=== PATIENT | male | born 1955 | race African-American/Black ===

== ENCOUNTER → 2018-06-21 | Outpatient (CLI) | payer MEDICARE ==
[2018-06-21 12:27] LABS: ALANINE AMINOTRANSFERASE 21 U/L (21-72); ALBUMIN 4.4 g/dL (3.5-5.0); ALKALINE PHOSPHATASE 84 U/L (38-126); ANION GAP 7 (5-19); ASPARTATE AMINO TRANSFERASE 24 U/L (17-59); BILIRUBIN,DIRECT 0.4 mg/dL (0.0-0.4); BILIRUBIN,TOTAL 0.5 mg/dL (0.2-1.3); BLOOD UREA NITROGEN 10 mg/dL (7-20); CALCIUM 8.8 mg/dL (8.4-10.2); CARBON DIOXIDE 32 mmol/L (22-30); CHLORIDE 102 mmol/L (98-107); CHOLESTEROL 220.71 mg/dL (0-200); GLUCOSE 101 mg/dL (75-110); POTASSIUM 4.9 mmol/L (3.6-5.0); TOTAL PROTEIN 7.5 g/dL (6.3-8.2); TRIGLYCERIDES 258 mg/dL (<150)
[2018-06-21 12:38] LABS: DIRECT LDL 100 mg/dL (<100)
[2018-06-21 12:46] LABS: VLDL CHOLESTEROL 51.6 mg/dL (10-31)
== END ==
LOC: OD 10:59
PROVIDERS: ATTEND Family Medicine
DX: E78.5 Hyperlipidemia, unspecified (principal)
CPT/HCPCS: 36415; 80053; 80061

== ENCOUNTER 2018-07-18 14:56 | Emergency (ER) | payer MEDICARE ==
--- NOTE | 2018-07-18 15:17 | ER Document Report ---
ED Medical Screen (RME) - General Chief Complaint: Altered Mental Status Stated Complaint: ALTERED MENTAL STATUS Time Seen by Provider: 07/18/18 15:09 Notes: 62-year-old male patient reports onset about 5 PM yesterday of left-sided weakness with some confusion and difficulty saying what he is thinking. He had his daughter who is a nurse at [employer] check his blood pressure about 7:30 PM and noted that it was a little high. According to the patient and his spouse , the daughter told her mother that she should take him to see a doctor in the morning. He did go to his primary care provider and was sent to the emergency room for further evaluation. I have greeted and performed a rapid initial assessment of this patient. A comprehensive ED assessment and evaluation of the patient, analysis of test results and completion of the medical decision making process will be conducted by additional ED providers. TRAVEL OUTSIDE OF THE [place] IN LAST 30 DAYS: No - Related Data Allergies/Adverse Reactions: aspirin Allergy (Verified 07/18/18 15:00) Past Medical History - Social History Chew tobacco use (# tins/day): No Frequency of alcohol use: None Drug Abuse: None Renal/ Medical History: Denies: Hx Peritoneal Dialysis Past Surgical History: Reports: Hx Abdominal Surgery - hernia Physical Exam - Vital signs Vitals: Temp Pulse Resp BP Pulse Ox 97.4 F 62 16 162/81 H 96 07/18/18 15:05 07/18/18 15:05 07/18/18 15:05 07/18/18 15:05 07/18/18 15:05 Course - Vital Signs Vital signs: Temp Pulse Resp BP Pulse Ox 97.4 F 62 16 162/81 H 96 07/18/18 15:05 07/18/18 15:05 07/18/18 15:05 07/18/18 15:05 07/18/18 15:05 Doctor's Discharge - Discharge Referrals: KAYLA KIRK MD [Primary Care Provider] - Follow up as needed
--- NOTE | 2018-07-18 15:51 | RADIOLOGY REPORT (SQ) ---
EXAM DESCRIPTION: CT HEAD WITHOUT COMPLETED DATE/TIME: 07/18/2018 3:31 pm REASON FOR STUDY: Left-sided weakness with confusion X 22 hours COMPARISON: None. TECHNIQUE: Axial images acquired through the brain without intravenous contrast. Images reviewed wi th bone, brain and subdural windows. Images stored on PACS. All CT scanners at this facility use dose modulation, iterative reconstruction, and/or weight based d osing when appropriate to reduce radiation dose to as low as reasonably achievable (ALARA). [facility]: Dose Right [facility]: CareDose [facility]: Dose Right [facility]: Teradose 4D [facility]: [employer] RADIATION DOSE: CT Rad equipment meets quality standard of care and radiation dose reduction techniq ues were employed. CTDIvol: 53.2 mGy. DLP: 1097 mGy-cm. mGy. LIMITATIONS: None. FINDINGS: VENTRICLES: Normal size and contour. CEREBRUM: No masses. No hemorrhage. No midline shift. No evidence for acute infarction. Normal gra y/white matter differentiation. No areas of low density in the white matter. CEREBELLUM: No masses. No hemorrhage. No alteration of density. No evidence for acute infarction. EXTRAAXIAL SPACES: No fluid collections. No masses. ORBITS AND GLOBE: No intra- or extraconal masses. Normal contour of globe without masses. CALVARIUM: No fracture. PARANASAL SINUSES: No fluid or mucosal thickening. SOFT TISSUES: No mass or hematoma. OTHER: No other significant finding. IMPRESSION: NORMAL BRAIN CT WITHOUT CONTRAST. EVIDENCE OF ACUTE STROKE: NO. COMMENT: Quality ID # [id number]: Final reports with documentation of one or more dose reduction techniques (e.g., Automated exposure control, adjustment of the mA and/or kV according to patient size, use of iterative reconstruction technique) TECHNICAL DOCUMENTATION: JOB ID: [id number] [employer]- All Rights Reserved Reading location - IP/workstation name: [email or web address]
[2018-07-18 16:00] LABS: ABSOLUTE EOSINOPHILS # (AUTO) 0.1 10^3/uL (0.0-0.6); ABSOLUTE LYMPHOCYTES (AUTO) 2.5 10^3/uL (0.5-4.7); ABSOLUTE MONOCYTES (AUTO) 0.5 10^3/uL (0.1-1.4); ABSOLUTE NEUT (AUTO) 1.7 10^3/uL (1.7-8.2); BASOPHILS % (AUTO) 0.6 % (0-2); EOSINOPHILS % (AUTO) 1.3 % (0-6); HEMATOCRIT 41.7 % (37.9-51.0); HEMOGLOBIN 14.2 g/dL (13.5-17.0); LYMPHOCYTES % (AUTO) 52.5 % (13-45); MEAN CORPUSCULAR HEMOGLOBIN 29.9 pg (27.0-33.4); MEAN CORPUSCULAR HGB CONC 34.1 g/dL (32.0-36.0); MEAN CORPUSCULAR VOLUME 88 fl (80-97); MONOCYTES % (AUTO) 9.6 % (3-13); PLATELET COUNT 167 10^3/uL (150-450); RED BLOOD COUNT 4.75 10^6/uL (4.35-5.55); RED CELL DISTRIBUTION WIDTH 13.7 % (11.5-14.0); TOTAL CELLS COUNTED % (AUTO) 100 %; WHITE BLOOD COUNT 4.7 10^3/uL (4.0-10.5)
[2018-07-18 16:12] LABS: INTERNATIONAL RATION (INR) 0.99; PARTIAL THROMBOPLASTIN TIME 25.1 SEC (23.5-35.8); PROTHROMBIN TIME 13.6 SEC (11.4-15.4)
[2018-07-18 16:19] LABS: APPEARANCE,URINE CLEAR; BILIRUBIN,URINE NEGATIVE (NEGATIVE); COLOR,URINE YELLOW; GLUCOSE, URINE NEGATIVE (NEGATIVE); KETONES,URINE NEGATIVE (NEGATIVE); LEUKOCYTE ESTERASE,URINE NEGATIVE (NEGATIVE); NITRITE,URINE NEGATIVE (NEGATIVE); PROTEIN,URINE NEGATIVE (NEGATIVE); URINE SPECIFIC GRAVITY 1.026
[2018-07-18] MEDS ORDERED: ASPIRIN 81 MG TABLET, CHEWABLE PO ONE (16:46)
--- NOTE | 2018-07-18 16:46 | ER Document Report ---
ED General - General Chief Complaint: Altered Mental Status Stated Complaint: ALTERED MENTAL STATUS Time Seen by Provider: 07/18/18 15:09 Notes: Patient was referred here from the [facility] for possible stroke. Patient says that last evening, he began noticing some problems with his speech and feeling weak in his left arm. Patient says he has had similar symptoms of this once back in the 1970s when he was diagnosed as having a light stroke. Patient's daughter, who is a nurse, took his blood pressure and it was between 175 and 180/80. Patient is not on any blood pressure medication and has not been on any blood pressure medicines. He had some headache this morning , but that has now completely gone. Patient says that he has been having concerns about his balance and feeling like he is going to fall, feeling like he is drunk, but this is been going on for a couple of months. Patient has no chest pains. No shortness of breath. No vomiting or diarrhea. Patient is currently on no medications. TRAVEL OUTSIDE OF THE [place] IN LAST 30 DAYS: No - Related Data Allergies/Adverse Reactions: aspirin Allergy (Verified 07/18/18 15:00) Past Medical History - Social History Smoking Status: Never Smoker Chew tobacco use (# tins/day): No Frequency of alcohol use: None Drug Abuse: None Family History: Reviewed & Not Pertinent Patient has suicidal ideation: No Patient has homicidal ideation: No - Past Medical History Cardiac Medical History: Reports: Other - Patient can take a baby aspirin a day , but more than that upset his stomach Endocrine Medical History: Denies: Hx Diabetes Mellitus Type 1, Hx Diabetes Mellitus Type 2 Past Surgical History: Reports: Hx Abdominal Surgery - hernia Review of Systems - Review of Systems Notes: REVIEW OF SYSTEMS: CONSTITUTIONAL : Denies fever. EENT: Denies eye, ear, nose or mouth or throat pain or other symptoms. CARDIOVASCULAR: Denies chest pain. RESPIRATORY: Denies cough, chest congestion, or shortness of breath. GASTROINTESTINAL: Denies abdominal pain or nausea, vomiting, or diarrhea. GENITOURINARY: Denies difficulty or painful urinating, urinary frequency, blood in urine. MUSCULOSKELETAL: Denies back or neck pain. Denies joint pain or swelling. SKIN: Denies rash or skin lesions. NEUROLOGICAL: Denies LOC or altered mental status. Can ambulate without assistance. Had a headache earlier today, but now no headache. Denies sensory loss or motor deficits. ALL OTHER SYSTEMS REVIEWED AND NEGATIVE. Physical Exam - Vital signs Vitals: Temp Pulse Resp BP Pulse Ox 97.4 F 62 16 162/81 H 96 07/18/18 15:05 07/18/18 15:05 07/18/18 15:05 07/18/18 15:05 07/18/18 15:05 Interpretation: Normal, Hypertensive - Mild Notes: PHYSICAL EXAMINATION: GENERAL: Well-appearing, in no acute distress. Ambulatory without assistance. No problems with his balance observed. HEAD: Atraumatic, normocephalic. EYES: Pupils equal round and reactive to light, extraocular movements intact. ENT: oropharynx clear without exudates. Moist mucous membranes. NECK: Normal range of motion, supple. No carotid bruits heard. LUNGS: Breath sounds clear and equal bilaterally. HEART: Regular rate and rhythm without murmurs. ABDOMEN: Soft, nontender. No guarding or rebound. No masses. BACK: No tenderness throughout entire back. EXTREMITIES: Normal range of motion without pain. NEUROLOGICAL: Both the patient's and his daughter and he agree that at this time, his symptoms have all essentially subsided and he is asymptomatic. Normal speech, normal gait. Normal sensory, motor, and reflex exams. Awake, alert, and oriented x3. Cranial nerves normal. PSYCH: Normal mood, normal affect. SKIN: Warm, dry, no rashes. Course - Re-evaluation Re-evalutation: 07/18/18 17:05 Patient remained stable throughout his stay in the department. His blood pressure was moderately elevated, 162/81 in triage. 07/18/18 17:10 Patient and family agree that his symptoms have essentially completely resolved. He does not have any current headache. No problems with his balance currently. No weakness of either side. No problems with his speech. I think treating this patient with aspirin and get his blood pressure under control will be appropriate treatment in his case. - Vital Signs Vital signs: Temp Pulse Resp BP Pulse Ox 97.4 F 62 16 162/81 H 96 07/18/18 15:05 07/18/18 15:05 07/18/18 15:05 07/18/18 15:05 07/18/18 15:05 - Laboratory Result Diagrams: 07/18/18 15:33 07/18/18 16:20 Laboratory results interpreted by me: 07/18/18 07/18/18 07/18/18 15:33 15:55 16:20 Seg Neutrophils % 36.0 L Lymphocytes % 52.5 H Direct Bilirubin 0.6 H ALT 19 L Creatine Kinase 237 H Urine Urobilinogen 4.0 H - Diagnostic Test Radiology reviewed: Image reviewed, Reports reviewed - CT scan is normal. - EKG Interpretation by Me EKG shows normal: Sinus rhythm Rate: Normal Rhythm: NSR Voltage: Increased voltage, Consistant with LVH Discharge - Discharge Clinical Impression: TIA (transient ischemic attack), Hypertension Condition: Stable Disposition: HOME, SELF-CARE Additional Instructions: Transient Ischemic Attack You have been diagnosed as having a transient ischemic attack (TIA). This is caused when an artery to the brain has been temporarily blocked. It can result in visual changes, difficulty with speech, and weakness or numbness -- usually limited to one side of the body. TIA symptoms usually resolve within an hour, but a TIA is serious, as it may be a warning sign of an impending stroke. To prevent further episodes, you may be placed on medication to reduce the possibility that your platelets will aggregate and form blood clots in the arteries that supply the brain. Usually, this includes aspirin and sometimes other platelet inhibitors. Further evaluation is often necessary to make an exact diagnosis as to where these blood clots are originating, and if anything else needs to be done to correct the problem. Call the physician or go to the emergency room if episodes occur with increasing frequency. If symptoms occur that don't go away within a few minutes , call 911. Take a single baby aspirin every day. Aspirin Aspirin has been shown to have a beneficial effect on blood circulation by reducing the clotting effect of platelets in the blood. These beneficial effects can be achieved by taking just a single baby (62.5 mg) aspirin a day. It is recommended that any person over the age of forty take a single baby aspirin every day for heart and brain circulation, unless you are allergic to aspirin or have some significant bleeding disorder. It is strongly recommended that people who have proven cardiac or blood circulation disturbances should take a baby aspirin every day. HIGH BLOOD PRESSURE REQUIRING TREATMENT: Your blood pressure is high. This is called "hypertension." Today's reading was ___162/81_ (normal is less than 140/90). Your history and exam suggest that this is not a temporary problem. You need treatment of your blood pressure. If left untreated, high blood pressure greatly increases your risk of heart attack and stroke. Please don't ignore this problem. If you have blood pressure medicine but aren't using it regularly, start taking it again. Some simple things you can do to help are: Get some aerobic exercise for at least 20 minutes on a daily basis. (See your doctor before beginning any new exercise program.) Eat a low-fat diet. Lose excess weight. Avoid salty foods and avoid adding salt to any of the foods you eat. Avoid diet pills, decongestants, "energizing" herbs, and other medicines that elevate blood pressure. There are many different medicines that treat blood pressure. If your medication causes unpleasant side effects, call your doctor. There are others you can try. Treating hypertension is a life-long investment in your health. ANGIOTENSIN CONVERTING ENZYME INHIBITOR MEDICATION: "ODETTE inhibitor" drugs are used to lower high blood pressure (or to reduce the "work" of the heart in patients with heart failure). These drugs block an enzyme that makes your blood vessels constrict and makes you retain salt. The result is lower blood pressure. ODETTE inhibitors cause few side effects. The most common side effect is a dry nagging cough. Occasionally, lightheadedness may occur while you get used to the medicine. Some patients may retain extra potassium (this is a problem if you are taking potassium supplements, potassium-containing salt substitutes, or a potassium-retaining drug such as triamterene, spironolactone, or amiloride) . If you are taking lithium, the lithium level must be rechecked after starting an ODETTE inhibitor. ODETTE inhibitors should NOT be used during . Contact the doctor or return if you develop severe lightheadedness, wheeze , weakness, palpitations or other new symptoms. Take the blood pressure medicine prescribed once a day. Follow-up at the [facility] in 7-10 days for a blood pressure recheck and medication adjustment. FOLLOW-UP CARE: If you have been referred to a physician for follow-up care, call the physician s office for an appointment as you were instructed or within the next two days. If you experience worsening or a significant change in your symptoms, notify the physician immediately or return to the Emergency Department at any time for re-evaluation. Return for us to reevaluate your condition if you develop new or worsening symptoms. Prescriptions: Lisinopril [Prinivil] 20 mg PO DAILY #30 tablet Referrals: KAYLA KIRK MD [Primary Care Provider] - Follow up as needed
[2018-07-18] MEDS ORDERED: LISINOPRIL 10 MG TABLET PO ONE (16:51)
[2018-07-18 17:02] LABS: ALANINE AMINOTRANSFERASE 19 U/L (21-72); ALBUMIN 4.2 g/dL (3.5-5.0); ALKALINE PHOSPHATASE 83 U/L (38-126); ANION GAP 10 (5-19); ASPARTATE AMINO TRANSFERASE 28 U/L (17-59); BILIRUBIN,DIRECT 0.6 mg/dL (0.0-0.4); BILIRUBIN,TOTAL 0.9 mg/dL (0.2-1.3); BLOOD UREA NITROGEN 8 mg/dL (7-20); CALCIUM 8.9 mg/dL (8.4-10.2); CARBON DIOXIDE 30 mmol/L (22-30); CHLORIDE 99 mmol/L (98-107); CREATINE KINASE 237 U/L (55-170); GLUCOSE 108 mg/dL (75-110); POTASSIUM 4.4 mmol/L (3.6-5.0); SODIUM 138.9 mmol/L (137-145); TOTAL PROTEIN 7.3 g/dL (6.3-8.2)
[2018-07-18 17:14] LABS: CREATINE KINASE MB 0.27 ng/mL (<4.55)
[2018-07-18 17:15] LABS: TROPONIN I < 0.012 ng/mL
[2018-07-18 17:49] VITALS: BP 161/77
--- NOTE | 2018-07-18 20:24 | EKG REPORT ---
SEVERITY:- ABNORMAL ECG - SINUS RHYTHM LEFT VENTRICULAR HYPERTROPHY : Confirmed by: Lam Eaton 18-Jul-2018 20:23:53
== END 2018-07-18 17:48 | disposition home or self-care (01) ==
LOC: ER 14:56
DX: G45.9 Transient cerebral ischemic attack, unspecified (principal); I10 Essential (primary) hypertension; R41.82 Altered mental status, unspecified; Z88.6 Allergy status to analgesic agent
CPT/HCPCS: 93005; 99285; 36415; 82553; 82550; 85025; 85610; 85730; 80053; 81001; 84484; 70450; 93010; A9270 ×2

== ENCOUNTER → 2018-08-07 | Outpatient (CLI) | payer MEDICARE | LOC: LAB 10:10 | PROVIDERS: ATTEND Family Medicine | DX: R39.12 Poor urinary stream (principal) | CPT/HCPCS: 36415; 84153 ==

== ENCOUNTER 2018-11-24 06:50 | Inpatient (IN) | payer MEDICARE ==
[2018-11-24] MEDS ORDERED: NORMAL SALINE 1000 ML 1,000 ML IV ONE ×2 (07:56→08:36)
[2018-11-24 08:12] LABS: ABSOLUTE LYMPHOCYTES (AUTO) 2.6 10^3/uL (0.5-4.7); ABSOLUTE MONOCYTES (AUTO) 0.9 10^3/uL (0.1-1.4); ABSOLUTE NEUT (AUTO) 4.1 10^3/uL (1.7-8.2); BASOPHILS % (AUTO) 0.1 % (0-2); EOSINOPHILS % (AUTO) 0.5 % (0-6); HEMATOCRIT 31.9 % (37.9-51.0); HEMOGLOBIN 10.7 g/dL (13.5-17.0); LYMPHOCYTES % (AUTO) 34.1 % (13-45); MEAN CORPUSCULAR HEMOGLOBIN 30.5 pg (27.0-33.4); MEAN CORPUSCULAR HGB CONC 33.6 g/dL (32.0-36.0); MEAN CORPUSCULAR VOLUME 91 fl (80-97); MONOCYTES % (AUTO) 11.2 % (3-13); PLATELET COUNT 175 10^3/uL (150-450); RED BLOOD COUNT 3.52 10^6/uL (4.35-5.55); RED CELL DISTRIBUTION WIDTH 13.7 % (11.5-14.0); SEGMENTED NEUTROPHILS % (AUTO) 54.1 % (42-78); TOTAL CELLS COUNTED % (AUTO) 100 %; WHITE BLOOD COUNT 7.6 10^3/uL (4.0-10.5)
[2018-11-24 08:19] LABS: ALANINE AMINOTRANSFERASE 34 U/L (21-72); ALBUMIN 3.8 g/dL (3.5-5.0); ALKALINE PHOSPHATASE 65 U/L (38-126); ANION GAP 10 (5-19); ASPARTATE AMINO TRANSFERASE 16 U/L (17-59); BILIRUBIN,DIRECT 0.2 mg/dL (0.0-0.4); BILIRUBIN,TOTAL 0.4 mg/dL (0.2-1.3); BLOOD UREA NITROGEN 38 mg/dL (7-20); CALCIUM 8.4 mg/dL (8.4-10.2); CARBON DIOXIDE 26 mmol/L (22-30); CHLORIDE 102 mmol/L (98-107); GLUCOSE 112 mg/dL (75-110); POTASSIUM 5.2 mmol/L (3.6-5.0); SODIUM 138.2 mmol/L (137-145); TOTAL PROTEIN 6.2 g/dL (6.3-8.2)
--- NOTE | 2018-11-24 08:29 | RADIOLOGY REPORT (SQ) ---
EXAM DESCRIPTION: CT HEAD WITHOUT COMPLETED DATE/TIME: 11/24/2018 8:15 am REASON FOR STUDY: weakness, dizziness COMPARISON: 2018 TECHNIQUE: Axial images acquired through the brain without intravenous contrast. Images reviewed wi th bone, brain and subdural windows. Images stored on PACS. All CT scanners at this facility use dose modulation, iterative reconstruction, and/or weight based d osing when appropriate to reduce radiation dose to as low as reasonably achievable (ALARA). [facility]: Dose Right [facility]: [employer] [facility]: Dose Right [facility]: Teradose 4D [facility]: [address] RADIATION DOSE: CT Rad equipment meets quality standard of care and radiation dose reduction techniq ues were employed. CTDIvol: 53.2 mGy. DLP: 1150 mGy-cm. mGy. LIMITATIONS: None. FINDINGS: VENTRICLES: Normal size and contour. CEREBRUM: No mass effect. No hemorrhage. No midline shift. Normal singletary/white matter differentiatio n. No evidence for acute territorial infarction. CEREBELLUM: No mass effect. No hemorrhage. No alteration of density. No evidence for acute infarct ion. EXTRAAXIAL SPACES: No fluid collections. ORBITS AND GLOBE: Symmetrical contour of the globes. CALVARIUM: No depressed skull fracture. PARANASAL SINUSES: No air-fluid level. SOFT TISSUES: No hematoma. IMPRESSION: No acute intracranial hemorrhage or acute territorial infarct. TECHNICAL DOCUMENTATION: JOB ID: [id number] [facility] [facility] [id number]: Final reports with documentation of one or more dose reduction techniques (e.g., Automate d exposure control, adjustment of the mA and/or kV according to patient size, use of iterative recons truction technique) 2010 [employer]- All Rights Reserved Reading location - IP/workstation name: [email or web address]
--- NOTE | 2018-11-24 08:58 | RADIOLOGY REPORT (SQ) ---
EXAM DESCRIPTION: CHEST SINGLE VIEW COMPLETED DATE/TIME: 11/24/2018 8:19 am REASON FOR STUDY: weakness COMPARISON: None. NUMBER OF VIEWS: One view. TECHNIQUE: Single frontal radiographic view of the chest acquired. LIMITATIONS: None. FINDINGS: LUNGS AND PLEURA: No opacities, masses or pneumothorax. No pleural effusion. MEDIASTINUM AND HILAR STRUCTURES: No masses. Contour normal. HEART AND VASCULAR STRUCTURES: Heart normal in size. Normal vasculature. BONES: No acute findings. HARDWARE: None in the chest. OTHER: No other significant finding. IMPRESSION: NO SIGNIFICANT RADIOGRAPHIC FINDING IN THE CHEST. TECHNICAL DOCUMENTATION: JOB ID: [id number] [facility] [employer] [facility]- All Rights Reserved Reading location - IP/workstation name: [email or web address]
--- NOTE | 2018-11-24 09:03 | ER Document Report ---
ED General - General Chief Complaint: Dizziness Stated Complaint: DIZZINESS Time Seen by Provider: 11/24/18 07:44 Notes: Patient is a 63-year-old male presents to the emergency department for generalized weakness, dizziness, head pressure for the last week. Patient states he feels as though he is falling asleep more often and he feels very w eak. Patient states the "pressure in my head" is unbearable. Patient denies any cough, congestion, fever, nausea, vomiting, diarrhea. Patient states the last time he urinated was yesterday and was "a little bit." Patient states he does have a history of prostate issues and does take medication for same. Past medical history: Hypertension, enlarged prostate, chronic back pain Medications: Aspirin, amitriptyline, atorvastatin, lisinopril, gabapentin, tramadol, hydrocodone Allergies: None Surgical history: None TRAVEL OUTSIDE OF THE [place] IN LAST 30 DAYS: No - Related Data Allergies/Adverse Reactions: aspirin Allergy (Verified 07/18/18 15:00) Past Medical History - General Information source: Patient, Relative - Social History Smoking Status: Unknown if Ever Smoked Family History: Reviewed & Not Pertinent Endocrine Medical History: Denies: Hx Diabetes Mellitus Type 1, Hx Diabetes Mellitus Type 2 Renal/ Medical History: Denies: Hx Peritoneal Dialysis Past Surgical History: Reports: Hx Abdominal Surgery - hernia Review of Systems - Review of Systems Constitutional: No symptoms reported EENT: No symptoms reported Cardiovascular: denies: Chest pain, Dyspnea Respiratory: No symptoms reported Gastrointestinal: Abdominal pain. denies: Diarrhea, Vomiting Genitourinary: See HPI Male Genitourinary: No symptoms reported Musculoskeletal: No symptoms reported Skin: No symptoms reported Hematologic/Lymphatic: See HPI Neurological/Psychological: See HPI Physical Exam - Vital signs Vitals: Resp BP Pulse Ox 14 118/104 H 93 11/24/18 07:34 11/24/18 07:34 11/24/18 07:34 - Notes Notes: GENERAL: Alert, interacts well. No acute distress. Hypotensive HEAD: Normocephalic, atraumatic. EYES: Pupils equal, round, and reactive to light. Extraocular movements intact. ENT: Oral mucosa moist, tongue midline. NECK: Full range of motion. Supple. Trachea midline. LUNGS: Clear to auscultation bilaterally, no wheezes, rales, or rhonchi. No respiratory distress. HEART: Regular rate and rhythm. No murmur ABDOMEN: Soft, Non-distended. Bowel sounds present in all 4 quadrants. G eneralized tenderness right and left lower quadrant and suprapubic. EXTREMITIES: Moves all 4 extremities spontaneously. No edema, normal radial and dorsalis pedis pulses bilaterally. No cyanosis. 5 out of 5 strength noted bilateral upper extremities, 4 out of 5 strength noted bilateral lower extrem ities. BACK: no cervical, thoracic, lumbar midline tenderness. No saddle anesthesia, normal distal neurovascular exam. NEUROLOGICAL: Alert and oriented x3. Normal speech. cranial nerves II through XI I grossly intact PSYCH: Normal affect, normal mood. SKIN: Warm, dry, normal turgor. No rashes or lesions noted. Course - Re-evaluation Re-evalutation: Patient's labs reveal no signs of leukocytosis. Patient's potassium is 5.2. Miguel grayson's BUN is 38 creatinine 5.67, GFR 12. This is an acute change from the last kidney function test we have listed in our computer system. Bryan is currently being placed by nursing staff, urine is pending. Patient is flu negative. Patient's head CT was negative, chest x-ray also negative. Discussed case with hospitalist Dr. De Jesus who agrees to admit the patient to this facility. Discussed nephrology is personal care attendant starting tomorrow morning should be needed. Patient's blood pressure now stays around 100 systolic. He is no longer with generalized abdominal pain after Bryan being placed. - Vital Signs Vital signs: Temp Pulse Resp BP Pulse Ox 97.9 F 79 14 95/61 L 98 11/24/18 10:12 11/24/18 10:12 11/24/18 10:12 11/24/18 10:12 11/24/18 10:12 - Laboratory Result Diagrams: 11/24/18 07:34 11/24/18 07:34 Laboratory results interpreted by me: 11/24/18 11/24/18 11/24/18 07:34 07:34 09:10 RBC 3.52 L Hgb 10.7 L Hct 31.9 L Potassium 5.2 H BUN 38 H Creatinine 5.67 H Est GFR ( Amer) 12 L Est GFR (Non-Af Amer) 10 L Glucose 112 H AST 16 L Total Protein 6.2 L Urine Blood SMALL H Urine Urobilinogen 2.0 H Ur Leukocyte Esterase LARGE H Discharge - Discharge Clinical Impression: Urinary obstruction Kidney failure, acute Qualifiers: Acute renal failure type: unspecified Qualified Code(s): N17.9 - Acute kidney failure, unspecified Condition: Stable Disposition: ADMITTED OBSERVATION Admitting Provider: Hospitalist - Dr. De Jesus Unit Admitted: Telemetry
[2018-11-24 09:49] LABS: A TYPE INFLUENZA AG NEGATIVE (NEGATIVE); B INFLUENZA AG NEGATIVE (NEGATIVE)
[2018-11-24 10:15] LABS: APPEARANCE,URINE SLIGHTLY-CLOUDY; BILIRUBIN,URINE NEGATIVE (NEGATIVE); COLOR,URINE YELLOW; GLUCOSE, URINE NEGATIVE (NEGATIVE); KETONES,URINE NEGATIVE (NEGATIVE); LEUKOCYTE ESTERASE,URINE LARGE (NEGATIVE); NITRITE,URINE NEGATIVE (NEGATIVE); PROTEIN,URINE NEGATIVE (NEGATIVE); URINE SPECIFIC GRAVITY 1.014
[2018-11-24] MEDS ORDERED: ONDANSETRON 4 MG TAB.RAPDIS PO PRN (11:05)
[2018-11-24] MEDS: LANSOPRAZOLE 30 MG TAB.RAP.DR PO SCH (13:13)
[2018-11-24] MEDS: 1/2 NORMAL SALINE 1,000 ML IV PRN (15:11)
[2018-11-24] MEDS: HEPARIN SOD (PORCINE) 5,000 UNIT/ML 1 ML SYRINGE SUBCUT SCH ×2 (15:47→21:59)
--- NOTE | 2018-11-24 17:12 | PDOC H&P ---
History of Present Illness Admission Date/PCP: 11/24/18 09:11 KAYLA KIRK MD Patient complains of: lightheadness, dizziness History of Present Illness: YURI SABILLON is a 63 year old male with a history of HTN, vertigo who presents with one week of worsening lightheadness and dizziness. Patient is accompanied by his very supportive and daughter in ED. Notes that 3-4 months ago was started on Lisinopril 20mg daily for elevated BP. After one month had repeated spells of lightheadness and his PCP decreased dose to 10mg daily in September 2018. Did better with reduced dose however continued to have occasional lightheadness. Over the past week, has become more symptomatic. States that it is worst with positional changes. He also admits to falling once on 11/23 when trying to stand up. Denies hitting head. Pt lives with his daughter who takes BP daily. She notes that it has been in 90-100s systolic lately. Patient has been eating and drink well. No recent illnesses or sick contacts. Denies fevers, chills, CP, SOB, abdominal pain, NV. State that his thinking has become "more clouded" over the last few days. NO history of renal dysfunction in the past. Notes that many years ago was diagnosed with vertigo however current sx are different. ED work up notable for Cr of 5.6, which is elevated compared to last Cr on file (WNL). admitted to hospitalist service for further work up. Past Medical History Medical History: Other - Vertigo Cardiac Medical History: Reports: Hypertension Endocrine Medical History: Denies: Diabetes Mellitus Type 1, Diabetes Mellitus Type 2 Social History Information Source: Patient Lives with: Family Smoking Status: Unknown if Ever Smoked Family History Family History: Reviewed & Not Pertinent Parental Family History Reviewed: No Children Family History Reviewed: NA Sibling(s) Family History Reviewed.: NA Medication/Allergy Home Medications: Amitriptyline HCl [Elavil 25 mg Tablet] 25 mg PO QHS 11/24/18 Aspirin [Ecotrin 81 mg EC Tablet] 81 mg pe PO DAILY 11/24/18 Atorvastatin Calcium [Lipitor 20 mg Tablet] 20 mg PO DAILY 11/24/18 Gabapentin 800 mg PO TID 11/24/18 Hydrocodone/Acetaminophen [[place] 7.5-325 Tablet] 1 tab PO TIDP PRN 11/24/18 Lisinopril [Prinivil 10 mg Tablet] 10 mg PO DAILY 11/24/18 Tramadol HCl [Ultram] 100 mg PO TIDP PRN 11/24/18 Allergies/Adverse Reactions: aspirin Adverse Reaction (Verified 11/24/18 11:11) Review of Systems All systems: reviewed and no additional remarkable complaints except as stated Physical Exam Vital Signs: Temp Pulse Resp BP Pulse Ox 97.9 F 79 21 H 110/63 100 11/24/18 10:12 11/24/18 10:12 11/24/18 16:32 11/24/18 16:32 11/24/18 16:32 Intake & Output 11/23/18 11/24/18 11/25/18 06:59 06:59 06:59 Intake Total 1999 Balance 1999 Weight 81.647 kg General appearance: PRESENT: no acute distress, cooperative, well-developed, well-nourished Head exam: PRESENT: atraumatic, normocephalic Eye exam: PRESENT: EOMI, PERRLA. ABSENT: scleral icterus Mouth exam: PRESENT: moist Neck exam: ABSENT: meningismus Respiratory exam: PRESENT: unlabored. ABSENT: tachypnea, wheezes Cardiovascular exam: PRESENT: +S1, +S2. ABSENT: systolic murmur GI/Abdominal exam: PRESENT: normal bowel sounds, soft. ABSENT: tenderness Extremities exam: PRESENT: full ROM. ABSENT: +1 edema Neurological exam: PRESENT: alert, awake, CN II-XII grossly intact, other - Speech slightly slowed Psychiatric exam: PRESENT: appropriate affect, normal mood Skin exam: PRESENT: dry, intact Results Laboratory Results: 11/24/18 07:34 11/24/18 07:34 11/24/18 11/24/18 11/24/18 07:34 07:34 09:10 WBC 7.6 RBC 3.52 L Hgb 10.7 L Hct 31.9 L MCV 91 MCH 30.5 MCHC 33.6 RDW 13.7 Plt Count 175 Seg Neutrophils % 54.1 Lymphocytes % 34.1 Monocytes % 11.2 Eosinophils % 0.5 Basophils % 0.1 Absolute Neutrophils 4.1 Absolute Lymphocytes 2.6 Absolute Monocytes 0.9 Absolute Eosinophils 0.0 Absolute Basophils 0.0 Sodium 138.2 Potassium 5.2 H Chloride 102 Carbon Dioxide 26 Anion Gap 10 BUN 38 H Creatinine 5.67 H Est GFR ( Amer) 12 L Est GFR (Non-Af Amer) 10 L Glucose 112 H Lactic Acid Calcium 8.4 Total Bilirubin 0.4 AST 16 L ALT 34 Alkaline Phosphatase 65 Total Protein 6.2 L Albumin 3.8 Urine Color YELLOW Urine Appearance SLIGHTLY-CLOUDY Urine pH 5.0 Ur Specific [place] 1.014 Urine Protein NEGATIVE Urine Glucose (UA) NEGATIVE Urine Ketones NEGATIVE Urine Blood SMALL H Urine Nitrite NEGATIVE Ur Leukocyte Esterase LARGE H Urine WBC (Auto) 30 Urine RBC (Auto) 4 11/24/18 13:25 WBC RBC Hgb Hct MCV MCH MCHC RDW Plt Count Seg Neutrophils % Lymphocytes % Monocytes % Eosinophils % Basophils % Absolute Neutrophils Absolute Lymphocytes Absolute Monocytes Absolute Eosinophils Absolute Basophils Sodium Potassium Chloride Carbon Dioxide Anion Gap BUN Creatinine Est GFR ( Amer) Est GFR (Non-Af Amer) Glucose Lactic Acid 1.0 Calcium Total Bilirubin AST ALT Alkaline Phosphatase Total Protein Albumin Urine Color Urine Appearance Urine pH Ur Specific [place] Urine Protein Urine Glucose (UA) Urine Ketones Urine Blood Urine Nitrite Ur Leukocyte Esterase Urine WBC (Auto) Urine RBC (Auto) 11/24/18 07:34 Troponin I < 0.012 Impressions: Chest X-Ray 11/24/18 07:55 IMPRESSION: NO SIGNIFICANT RADIOGRAPHIC FINDING IN THE CHEST. Head CT 11/24/18 07:56 IMPRESSION: No acute intracranial hemorrhage or acute territorial infarct. Assessment & Plan - Diagnosis (1) Kidney failure, acute Qualifiers: Acute renal failure type: unspecified Qualified Code(s): N17.9 - Acute kidney failure, unspecified Is this a current diagnosis for this admission?: Yes Plan: Presents with BUN 39 and Cr 5.87. Previous Cr was WNL. Symptoms of lightheadness and weakeness started around time of Lisinopril. Most likely etiology is medication included (also taking Neurontin and Lyrica). - Start gentle fluids at 75 cc/hour and encourage PO - Renal ultrasound ordered to rule out obstruction - Holding lisinopril, neurontin, lyrica - Avoid nephrotoxin including NSAIDs - Renal consulted (Dr. Estevez), appreciate recs - Follow up Cr in AM - NO indication of urgent dialysis at this time (2) Confusion Plan: Likely for uremia. Will rule out infection as well - CT head in ER was negative (3) Hypertension Is this a current diagnosis for this admission?: Yes Plan: BP's have been soft - Permanantely d/c Lisinopril (4) Vertigo Is this a current diagnosis for this admission?: Yes Plan: History of vertigo however this appears to be a separate process (5) Chronic back pain Is this a current diagnosis for this admission?: Yes Plan: Ordered Oxycodone 5mg q8 hours PRN and Tylenol PRN - AVOID NSAIds - Time Time Spent: 50 to 70 Minutes Critical Time spent with patient: 15-24 minutes Medications reviewed and adjusted accordingly: Yes
[2018-11-24] MEDS: OXYCODONE HCL IR 5 MG TABLET PO PRN (18:15)
--- NOTE | 2018-11-24 20:02 | RADIOLOGY REPORT (SQ) ---
EXAM DESCRIPTION: U/S RETROPERITON (RENAL/AORTA) COMPLETED DATE/TIME: 11/24/2018 12:41 pm REASON FOR STUDY: acute renal failure; rule out obstruction R69 ILLNESS, UNSPECIFIED COMPARISON: None. TECHNIQUE: Dynamic and static grayscale images acquired of the kidneys and bladder and recorded on P ACS. Additional selected color Doppler and spectral images recorded. LIMITATIONS: None. FINDINGS: RIGHT KIDNEY: The right kidney is normal in size measuring 10.5 x 5.4 x 6.6 cm. Increased echogenicity of the renal parenchyma suggest chronic medical renal disease. No hydronephrosis. Dop pler flow the right kidney noted. LEFT KIDNEY: The left kidney measures 10.8 x 5.6 x 5.3 cm. Minimal increased echogenicity renal p arenchyma suggest chronic renal disease. No hydronephrosis. Doppler flow to the left kidney noted. BLADDER: The bladder is decompressed by Bryan catheter. IMPRESSION: Both kidneys demonstrate increased echogenicity of the renal parenchyma. The possibilit y of chronic medical renal disease cannot be excluded. TECHNICAL DOCUMENTATION: JOB ID: [id number] [employer]- All Rights Reserved Reading location - IP/workstation name: [email or web address]
[2018-11-24] MEDS: ACETAMINOPHEN 325 MG TABLET PO PRN (23:26)
--- NOTE | 2018-11-25 00:04 | EKG REPORT ---
SEVERITY:- NORMAL ECG - SINUS RHYTHM : Confirmed by: Lam Eaton 25-Nov-2018 00:03:23
[2018-11-25] MEDS: LANSOPRAZOLE 30 MG TAB.RAP.DR PO SCH (05:55)
[2018-11-25] MEDS: HEPARIN SOD (PORCINE) 5,000 UNIT/ML 1 ML SYRINGE SUBCUT SCH ×3 (05:55→21:08)
[2018-11-25] MEDS: 1/2 NORMAL SALINE 1,000 ML IV PRN (05:55)
[2018-11-25] MEDS: ACETAMINOPHEN 325 MG TABLET PO PRN (06:06)
[2018-11-25 06:43] LABS: HEMATOCRIT 27.5 % (37.9-51.0); HEMOGLOBIN 9.6 g/dL (13.5-17.0); MEAN CORPUSCULAR HEMOGLOBIN 31.3 pg (27.0-33.4); MEAN CORPUSCULAR HGB CONC 34.7 g/dL (32.0-36.0); MEAN CORPUSCULAR VOLUME 90 fl (80-97); PLATELET COUNT 133 10^3/uL (150-450); RED BLOOD COUNT 3.06 10^6/uL (4.35-5.55); RED CELL DISTRIBUTION WIDTH 13.6 % (11.5-14.0)
[2018-11-25 06:58] LABS: ANION GAP 8 (5-19); BLOOD UREA NITROGEN 46 mg/dL (7-20); CALCIUM 7.6 mg/dL (8.4-10.2); CARBON DIOXIDE 21 mmol/L (22-30); CHLORIDE 107 mmol/L (98-107); GLUCOSE 89 mg/dL (75-110); PHOSPHORUS 6.7 mg/dL (2.5-4.5); POTASSIUM 5.9 mmol/L (3.6-5.0); SODIUM 136.2 mmol/L (137-145)
[2018-11-25] MEDS: OXYCODONE HCL IR 5 MG TABLET PO PRN ×2 (08:25→16:43)
[2018-11-25] MEDS ORDERED: ENOXAPARIN SODIUM INJ 30 MG/0.3 ML DISP.SYRIN SUBCUT SCH (10:00)
[2018-11-25] MEDS ORDERED: NORMAL SALINE 1000 ML 1,000 ML IV PRN (11:51)
--- NOTE | 2018-11-25 12:25 | PDOC PROGRESS REPORT ---
Subjective Progress Note for:: 11/25/18 Subjective:: 11/25/[id number]-lswu-old male with history of hypertension vertigo started on lisinopril 4 months ago started having lightheadedness and dizzy spells dose was decreased to 10 mg daily in September 2018 symptoms are improved but still having the problems of lightheadedness and dizzy spells in association with history of fall on 11/23/2018. At home the systolic blood pressures are in the 90s or 100s, no problems with appetite. No fever no chills no chest pain no shortness of breath no abdominal pain no nausea decided to came to the emergency room for further evaluation. In the emergency room he was found to be in acute renal failure creatinine 5.6 and baseline creatinine of 0.8 in May of last year. Patient is still complaining of lightheadedness on examination this morning he is receiving IV fluids at 75 cc/h blood pressure is 90/71. Complains of mild shortness of breath. Discussed the plan of care with Dr. Estevez she is very helpful and she recommended to put the patient on Veltassa 25.6 g for hyperkalemia with potassium of 5.9, and to increase the fluids to 125 cc/h. Dr. Estevez is going to see the patient this evening. Reason For Visit: ACUTE RENAL FAILURE Physical Exam Vital Signs: Temp Pulse Resp BP Pulse Ox 98.1 F 68 16 90/45 L 98 11/25/18 07:55 11/25/18 07:55 11/25/18 07:55 11/25/18 07:55 11/25/18 07:55 Intake & Output 11/24/18 11/25/18 11/26/18 06:59 06:59 06:59 Intake Total 5860 Output Total 1735 Balance 4125 Weight 89.5 kg General appearance: PRESENT: no acute distress Head exam: PRESENT: atraumatic Eye exam: PRESENT: PERRLA Mouth exam: PRESENT: moist Teeth exam: PRESENT: poor dentation Neck exam: ABSENT: carotid bruit, JVD, lymphadenopathy, thyromegaly Respiratory exam: PRESENT: decreased breath sounds Cardiovascular exam: PRESENT: RRR. ABSENT: diastolic murmur, rubs, systolic murmur GI/Abdominal exam: PRESENT: normal bowel sounds, soft. ABSENT: distended, guarding, mass, organolmegaly, rebound, tenderness Extremities exam: PRESENT: full ROM. ABSENT: calf tenderness, clubbing, pedal edema Neurological exam: PRESENT: alert, awake, oriented to person, oriented to place, oriented to time, oriented to situation, CN II-XII grossly intact. ABSENT: motor sensory deficit Psychiatric exam: PRESENT: appropriate affect, normal mood. ABSENT: homicidal ideation, suicidal ideation Results Laboratory Results: 11/25/18 05:13 11/25/18 05:13 11/24/18 11/25/18 11/25/18 13:25 05:13 05:13 WBC 5.0 RBC 3.06 L Hgb 9.6 L Hct 27.5 L MCV 90 MCH 31.3 MCHC 34.7 RDW 13.6 Plt Count 133 L Sodium 136.2 L Potassium 5.9 H Chloride 107 Carbon Dioxide 21 L Anion Gap 8 BUN 46 H Creatinine 6.62 H Est GFR ( Amer) 10 L Est GFR (Non-Af Amer) 8 L Glucose 89 Lactic Acid 1.0 Calcium 7.6 L Phosphorus 6.7 H Magnesium 1.9 11/24/18 07:34 Troponin I < 0.012 Impressions: Renal Ultrasound 11/24/18 00:00 IMPRESSION: Both kidneys demonstrate increased echogenicity of the renal parenchyma. The possibility of chronic medical renal disease cannot be excluded. Chest X-Ray 11/24/18 07:55 IMPRESSION: NO SIGNIFICANT RADIOGRAPHIC FINDING IN THE CHEST. Head CT 11/24/18 07:56 IMPRESSION: No acute intracranial hemorrhage or acute territorial infarct. Assessment & Plan - Diagnosis (1) Kidney failure, acute Qualifiers: Acute renal failure type: unspecified Qualified Code(s): N17.9 - Acute kidney failure, unspecified Is this a current diagnosis for this admission?: Yes Plan: Presents with BUN 39 and Cr 5.87. Previous Cr was WNL. Symptoms of lightheadness and weakeness started around time of Lisinopril. Most likely etiology is medication included (also taking Neurontin and Lyrica). - Start gentle fluids at 75 cc/hour and encourage PO - Renal ultrasound ordered to rule out obstruction - Holding lisinopril, neurontin, lyrica - Avoid nephrotoxin including NSAIDs - Renal consulted (Dr. Estevez), appreciate recs - Follow up Cr in AM - NO indication of urgent dialysis at this time 11/25/2018 lab work today creatinine was 6.62 and potassium went up to 5.9. Discussed care plan with Dr. Estevez the recommendation is to increase the fluids to 125 cc/h and give Veltassa 25.6 g for hyperkalemia. She is going to see the patient today. Renal ultrasound was done no hydronephrosis was found. There is mention about a chronic renal disease cannot be ruled out. Acute renal failure may be most likely secondary to lisinopril. Which was on hold appropriately. Going to do the daily labs. And to repeat the potassium around 4 PM today. (2) Confusion Is this a current diagnosis for this admission?: Yes Plan: Patient's BUN and today is 46. Patient came in with confusion/altered mental status. This morning able to give good information about his medical condition and the present situation. This confusion may be secondary to uremia. Plan to repeat the BUN tomorrow. Patient's baseline BUN is around 10 it is 48 today. (3) Hypertension Is this a current diagnosis for this admission?: Yes Plan: 11/21/2018-patient was hypotensive blood pressure is 90/45 despite on fluids normal saline at 75 cc/h. Fluid rate was increased to 125 cc/h. Patient is asymptomatic except for dizziness. (4) Vertigo Is this a current diagnosis for this admission?: Yes Plan: 11/25/2018-patient came in with the dizziness and vertigo for the last few weeks. He has also history of fall. CT head was negative. CT of the neck was done to rule out any stenosis. - Time Time Spent with patient: 15-24 minutes Medications reviewed and adjusted accordingly: Yes Anticipated discharge: Home
[2018-11-25] MEDS ORDERED: PATIROMER 8.4 GM SUSP PACKET PO ONE (14:15)
--- NOTE | 2018-11-25 14:18 | RADIOLOGY REPORT (SQ) ---
EXAM DESCRIPTION: CHEST SINGLE VIEW COMPLETED DATE/TIME: 11/25/2018 2:01 pm REASON FOR STUDY: shortness of breath COMPARISON: 11/24/2018 EXAM PARAMETERS: NUMBER OF VIEWS: One view. TECHNIQUE: Single frontal radiographic view of the chest acquired. RADIATION DOSE: NA LIMITATIONS: None. FINDINGS: LUNGS AND PLEURA: No opacities, masses or pneumothorax. No pleural effusion. MEDIASTINUM AND HILAR STRUCTURES: No masses. Contour normal. HEART AND VASCULAR STRUCTURES: Heart normal in size. Normal vasculature. BONES: No acute findings. HARDWARE: None in the chest. OTHER: No other significant finding. IMPRESSION: 1. NO ACUTE RADIOGRAPHIC FINDING IN THE CHEST. TECHNICAL DOCUMENTATION: JOB ID: [id number] [employer]- All Rights Reserved Reading location - IP/workstation name: [email or web address]
--- NOTE | 2018-11-25 15:22 | PDOC CONSULTATION ---
Consultation Consult Date: 11/25/18 Attending physician:: ALLIE HUTCHISON Consult reason:: I was asked to see the patient because of acute worsening of kidney function. History of Present Illness Admission Date/PCP: 11/24/18 09:11 KAYLA KIRK MD History of Present Illness: YURI SABILLON is a 63 year old male with history of hypertension, vertigo who was admitted yesterday because of lightheadedness, dizziness and acute kidney injury. Patient has not seen a doctor for a while and has started seeing a doctor about 3-4 months ago. The daughter said that he initially went to the emergency room as was found to have elevated blood pressure with blood pressures around 140-150/70-80. He was then started on lisinopril 20 mg p.o. daily. This was continued by his primary care provider. Daughter states that since starting lisinopril patient's blood pressure has been on the low side around 90-100 over 50s-60s. About 1-1/2 weeks ago the lisinopril dose was decreased to 10 mg once a day. Patient has been experiencing dizziness, lightheadedness and his low blood pressure the whole time he was on lisinopril. He also has been having episodes of falling. Due to worsening symptoms patient decided to go to the emergency room. When he came in he has a BUN of 38, creatinine of 5.67 with estimated GFR of 12. Today he has a BUN of 46, creatinine of 6.62 with EGFR of 10. On July 18, 2018 he had a BUN of 8 and creatinine of 0.89. He is making urine about 1735 mL for the last 24 hours since admission. Current blood pressure still in the low side around 89-107/59-60 without any hypertensive medications including lisinopril which was held. Kidney ultrasound did not rev eal any hydro-process with normal size kidneys the right kidney at 10.5 cm left kidney at 10.8 cm. Initial chest x-ray and CT scan of the head were both negative. Patient denies any problem with his kidneys in the past. He denies any history of kidney stones. He was just recently started on finasteride for his prostate and claims that his urine stream has improved since then. He admits some urinary frequency but denies any dysuria no hematuria. He took Advil cold and sinus for the last 2 weeks may be a total of 2-3 tablets per . His appetite has not been changed and he claims he is drinking enough fluids. He denies any history of any [id number] herbal medications. Also denies any history of hepatitis. Past Medical History Cardiac Medical History: Reports: Hypertension-primary Neurological Medical History: Reports: Other - Vertical Past Surgical History Past Surgical History: Reports: Herniorrhaphy Social History Information Source: Patient, Relative Lives with: Family Smoking Status: Former Smoker Frequency of Alcohol Use: None Hx Recreational Drug Use: No Hx Prescription Drug Abuse: No - Advance Directive Resuscitation Status: Full Code Family History Family History: CAD - Mother, father, brother and sister, DM - Daughter, Hypertension - Also runs in the family Parental Family History Reviewed: Yes Children Family History Reviewed: Yes Sibling(s) Family History Reviewed.: Yes Medication/Allergy Home Medications: Amitriptyline HCl [Elavil 25 mg Tablet] 25 mg PO QHS 11/24/18 Aspirin [Ecotrin 81 mg EC Tablet] 81 mg pe PO DAILY 11/24/18 Atorvastatin Calcium [Lipitor 20 mg Tablet] 20 mg PO DAILY 11/24/18 Gabapentin 800 mg PO TID 11/24/18 Hydrocodone/Acetaminophen [[place] 7.5-325 Tablet] 1 tab PO TIDP PRN 11/24/18 Lisinopril [Prinivil 10 mg Tablet] 10 mg PO DAILY 11/24/18 Tramadol HCl [Ultram] 100 mg PO TIDP PRN 11/24/18 Allergies/Adverse Reactions: aspirin Adverse Reaction (Verified 11/24/18 11:11) Review of Systems Review of Systems: Constitutional: ABSENT: chills, fatigue, fever(s), headache(s), weight gain, weight loss Eyes: ABSENT: visual disturbances Ears: ABSENT: hearing changes Cardiovascular: ABSENT: chest pain, dyspnea on exertion, edema, orthropnea, palpitations Respiratory: ABSENT: cough, dyspnea, hemoptysis Gastrointestinal: ABSENT: abdominal pain, constipation, diarrhea, hematemesis, hematochezia, nausea, vomiting Genitourinary: ABSENT: dysuria, hematuria Musculoskeletal: ABSENT: joint swelling Integumentary: ABSENT: rash, wounds Neurological: ABSENT: abnormal gait, abnormal speech, confusion, focal weakness, numbness, syncope; admits dizziness and lightheadedness Psychiatric: ABSENT: anxiety, depression Endocrine: ABSENT: cold intolerance, heat intolerance, polydipsia, polyuria Hematologic/Lymphatic: ABSENT: easy bleeding, easy bruising, lymphadenopathy Physical Exam Vital Signs: Temp Pulse Resp BP Pulse Ox 97.6 F 73 16 105/58 L 99 11/25/18 11:47 11/25/18 14:00 11/25/18 07:55 11/25/18 11:47 11/25/18 11:47 Intake & Output 11/24/18 11/25/18 11/26/18 06:59 06:59 06:59 Intake Total 5860 Output Total 1735 Balance 4125 Weight 89.5 kg Exam: General appearance: No acute distress, cooperative, well-developed, well- nourished Head exam: PRESENT: atraumatic, normocephalic Eye exam: PRESENT: Conjunctiva Tees Toh, EOMI, PERRLA. ABSENT: conjunctival injection, scleral icterus Mouth exam: PRESENT: moist, neck supple, tongue midline Neck exam: PRESENT: full ROM. ABSENT: carotid bruit, JVD, lymphadenopathy, thyromegaly Respiratory exam: PRESENT: clear to auscultation bilaterally. ABSENT: rales, rhonchi, stridor, wheezes Cardiovascular exam: PRESENT: RRR, +S1, +S2. ABSENT: systolic murmur Pulses: PRESENT: normal radial pulses, normal dorsalis pedis pulses GI/Abdominal exam: PRESENT: normal bowel sounds, soft. ABSENT: guarding, mass, tenderness Rectal exam: Deferred Extremities exam: PRESENT: full ROM. ABSENT: calf tenderness, pedal edema Musculoskeletal: PRESENT: full ROM. ABSENT: deformity Neurological exam: PRESENT: alert, Awake, Oriented to person, Oriented to place, Oriented to time, reflexes normal, CN II-XII grossly intact. ABSENT: motor sensory deficit Psychiatric exam: PRESENT: appropriate affect, normal mood. ABSENT: homicidal ideation, suicidal ideation Skin exam: PRESENT: intact, dry, warm. ABSENT: rash Results Laboratory Results: 11/25/18 05:13 11/25/18 05:13 11/24/18 11/25/18 11/25/18 13:25 05:13 05:13 WBC 5.0 RBC 3.06 L Hgb 9.6 L Hct 27.5 L MCV 90 MCH 31.3 MCHC 34.7 RDW 13.6 Plt Count 133 L Sodium 136.2 L Potassium 5.9 H Chloride 107 Carbon Dioxide 21 L Anion Gap 8 BUN 46 H Creatinine 6.62 H Est GFR ( Amer) 10 L Est GFR (Non-Af Amer) 8 L Glucose 89 Lactic Acid 1.0 Calcium 7.6 L Phosphorus 6.7 H Magnesium 1.9 11/24/18 07:34 Troponin I < 0.012 Impressions: Renal Ultrasound 11/24/18 00:00 IMPRESSION: Both kidneys demonstrate increased echogenicity of the renal parenchyma. The possibility of chronic medical renal disease cannot be excluded. Head CT 11/24/18 07:56 IMPRESSION: No acute intracranial hemorrhage or acute territorial infarct. Chest X-Ray 11/25/18 00:00 IMPRESSION: 1. NO ACUTE RADIOGRAPHIC FINDING IN THE CHEST. Assessment & Plan - Diagnosis (1) Acute kidney injury Is this a current diagnosis for this admission?: Yes Plan: Is most likely secondary to being hypotensive for a period of time after starting lisinopril. This can cause ATN leading to acute kidney injury. Patient is currently nonoliguric. He does not appear to be uremic or fluid overloaded. We will continue to monitor the patient's kidney function. No indication of urgent acute renal replacement therapy but discussed this with patient and his family at bedside including his and daughter. Hopefully his kidney function improves with improvement of his blood pressure. However if it continues to get worse then we might need to do an acute renal replacement therapy which the patient agreed to. Increase IV fluids 125 mL an hour. Hold any antihypertensive medications including lisinopril. Avoid further nephrotoxic medications. We will follow with you. Urine also showed some leukocytes and minimal WBC so we will get a urine culture. (2) Hyperkalemia Is this a current diagnosis for this admission?: Yes Plan: We will give the patient veltassa 25.2 g x1 dose now and will repeat potassium level later on this evening. Kayexalate is unfortunately not available at this time. Follow low potassium diet. (3) Hypotension Is this a current diagnosis for this admission?: Yes Plan: Continue IV fluids as above. - Notes Notes: Thank you very much for this consultation. Assessment and plan discussed with the patient and his family. Also discussed with Dr. Hutchison. - Time Time Spent: 50 to 70 Minutes
[2018-11-25] MEDS ORDERED: PATIROMER 8.4 GM SUSP PACKET PO SCH (17:00)
[2018-11-26] MEDS: HEPARIN SOD (PORCINE) 5,000 UNIT/ML 1 ML SYRINGE SUBCUT SCH ×3 (05:06→21:41)
[2018-11-26] MEDS: LANSOPRAZOLE 30 MG TAB.RAP.DR PO SCH (05:12)
[2018-11-26 05:18] LABS: ABSOLUTE LYMPHOCYTES (AUTO) 1.6 10^3/uL (0.5-4.7); ABSOLUTE MONOCYTES (AUTO) 0.6 10^3/uL (0.1-1.4); ABSOLUTE NEUT (AUTO) 3.2 10^3/uL (1.7-8.2); BASOPHILS % (AUTO) 0.3 % (0-2); EOSINOPHILS % (AUTO) 0.6 % (0-6); HEMATOCRIT 28.4 % (37.9-51.0); HEMOGLOBIN 9.7 g/dL (13.5-17.0); LYMPHOCYTES % (AUTO) 29.6 % (13-45); MEAN CORPUSCULAR HEMOGLOBIN 30.6 pg (27.0-33.4); MEAN CORPUSCULAR HGB CONC 34.3 g/dL (32.0-36.0); MEAN CORPUSCULAR VOLUME 89 fl (80-97); MONOCYTES % (AUTO) 10.8 % (3-13); PLATELET COUNT 139 10^3/uL (150-450); RED BLOOD COUNT 3.18 10^6/uL (4.35-5.55); RED CELL DISTRIBUTION WIDTH 13.4 % (11.5-14.0); SEGMENTED NEUTROPHILS % (AUTO) 58.7 % (42-78); TOTAL CELLS COUNTED % (AUTO) 100 %; WHITE BLOOD COUNT 5.5 10^3/uL (4.0-10.5)
[2018-11-26 05:46] LABS: ALANINE AMINOTRANSFERASE 31 U/L (21-72); ALKALINE PHOSPHATASE 57 U/L (38-126); ANION GAP 11 (5-19); ASPARTATE AMINO TRANSFERASE 19 U/L (17-59); BILIRUBIN,DIRECT 0.2 mg/dL (0.0-0.4); BILIRUBIN,TOTAL 0.3 mg/dL (0.2-1.3); BLOOD UREA NITROGEN 51 mg/dL (7-20); CARBON DIOXIDE 18 mmol/L (22-30); CHLORIDE 110 mmol/L (98-107); GLUCOSE 89 mg/dL (75-110); POTASSIUM 5.8 mmol/L (3.6-5.0); SODIUM 138.5 mmol/L (137-145); TOTAL PROTEIN 5.4 g/dL (6.3-8.2)
[2018-11-26] MEDS: OXYCODONE HCL IR 5 MG TABLET PO PRN ×2 (07:58→17:47)
[2018-11-26] MEDS: ACETAMINOPHEN 325 MG TABLET PO PRN ×3 (07:58→22:37)
--- NOTE | 2018-11-26 08:16 | RADIOLOGY REPORT (SQ) ---
EXAM DESCRIPTION: CAROTID DOPPLER COMPLETED DATE/TIME: 11/25/2018 8:28 pm REASON FOR STUDY: syncope R69 ILLNESS, UNSPECIFIED COMPARISON: CT brain 11/24/2018, 07/18/2018 TECHNIQUE: Grayscale ultrasound, Doppler velocity and spectra, and color Doppler images acquired of the extra-cranial carotid and vertebral arteries. Images stored on PACS. LIMITATIONS: None. FINDINGS: RIGHT CAROTID CCA Velocities: Within normal limits. Peak systolic velocity 1.3 m/sec ICA Velocities Peak systolic 1.0 m/s. End diastolic 0.24 m/s. Proximal ICA/CCA peak systolic ratio 0.8. There is extensive soft plaque at the right carotid bifurcation. Visually by grayscale and color genesis w, greater than 70% stenosis of the proximal right ICA is suspected. However, velocities do not oscar elate. CT angio of the neck with IV contrast is recommended for followup. LEFT CAROTID CCA Velocities: Within normal limits. Left common carotid artery peak systolic velocity 1 m/sec. ICA Velocities Peak systolic 1.0 m/s. End diastolic 0.18 m/s. Proximal ICA/CCA peak systolic ratio 1.0. Spectra normal. No significant plaque. VERTEBRAL ARTERIES: Antegrade flow. Normal waveforms. SUBCLAVIAN ARTERIES: Not evaluated OTHER: No other significant finding. IMPRESSION: Soft plaque at the right carotid bifurcation worrisome for flow significant stenosis rig ht proximal internal carotid artery. However, velocity measurements in the proximal right internal c arotid artery suggest against flow significant stenosis. The CT angio of the neck with IV contrast i s recommended for further evaluation of the right carotid bifurcation. No flow significant stenosis at the left carotid bifurcation. Antegrade pulsatile vertebral artery f low bilaterally. COMMENT: Quality ID #[id number]: Velocity criteria are extrapolated from the diameter data as defined by t he Society of Radiologists in Ultrasound Consensus Conference. Radiology 2003: 229; 340-346. TECHNICAL DOCUMENTATION: JOB ID: [id number] [employer]- All Rights Reserved Reading location - IP/workstation name: [email or web address]
[2018-11-26] MEDS ORDERED: INSULIN REG, HUMAN 100 UNIT/ML 3 ML VIAL (PYX) IV ONE (09:52)
[2018-11-26] MEDS ORDERED: DEXTROSE 50%-WATER 25 GM/50 ML DISP.SYRIN IV ONE (09:52)
--- NOTE | 2018-11-26 09:56 | PDOC PROGRESS REPORT ---
Subjective Progress Note for:: 11/26/18 Subjective:: 11/25/[id number]-adej-old male with history of hypertension vertigo started on lisinopril 4 months ago started having lightheadedness and dizzy spells dose was decreased to 10 mg daily in September 2018 symptoms are improved but still having the problems of lightheadedness and dizzy spells in association with history of fall on 11/23/2018. At home the systolic blood pressures are in the 90s or 100s, no problems with appetite. No fever no chills no chest pain no shortness of breath no abdominal pain no nausea decided to came to the emergency room for further evaluation. In the emergency room he was found to be in acute renal failure creatinine 5.6 and baseline creatinine of 0.8 in May of last year. Patient is still complaining of lightheadedness on examination this morning he is receiving IV fluids at 75 cc/h blood pressure is 90/71. Complains of mild shortness of breath. Discussed the plan of care with Dr. Estevez she is very helpful and she recommended to put the patient on Veltassa 25.6 g for hyperkalemia with potassium of 5.9, and to increase the fluids to 125 cc/h. Dr. Estevez is going to see the patient this evening. 11/26/2018-no acute events in the last 24 hours. Patient is afebrile. Blood pressure was improved to 126/61. He is in IV fluids normal saline at 125 cc/h. His hyperkalemia still persisting potassium is 5.9 and a creatinine is worsened to6.97. Patient is on Veltassa and it is not working well. Carotid Doppler was done there is possibility of Flat mL right internal carotid artery stenosis. pt is going for MRA today. Reason For Visit: ACUTE RENAL FAILURE Physical Exam Vital Signs: Temp Pulse Resp BP Pulse Ox 97.7 F 82 16 126/61 H 98 11/26/18 08:00 11/26/18 08:00 11/26/18 08:00 11/26/18 08:00 11/26/18 08:00 Intake & Output 11/25/18 11/26/18 11/27/18 06:59 06:59 06:59 Intake Total 5860 1650 Output Total 1735 2130 Balance 4125 -480 Weight 89.5 kg 87.9 kg General appearance: PRESENT: mild distress Head exam: PRESENT: atraumatic Eye exam: PRESENT: PERRLA Neck exam: ABSENT: carotid bruit, JVD, lymphadenopathy, thyromegaly Respiratory exam: PRESENT: decreased breath sounds Cardiovascular exam: PRESENT: tachycardia GI/Abdominal exam: PRESENT: normal bowel sounds, soft. ABSENT: distended, guard ing, mass, organolmegaly, rebound, tenderness Extremities exam: PRESENT: full ROM. ABSENT: calf tenderness, clubbing, pedal edema Neurological exam: PRESENT: alert, awake, oriented to person, oriented to place, oriented to time, oriented to situation, CN II-XII grossly intact. ABSENT: motor sensory deficit Psychiatric exam: PRESENT: appropriate affect, normal mood. ABSENT: homicidal ideation, suicidal ideation Results Laboratory Results: 11/26/18 04:08 11/26/18 04:08 11/25/18 11/26/18 11/26/18 19:05 04:08 04:08 WBC 5.5 RBC 3.18 L Hgb 9.7 L Hct 28.4 L MCV 89 MCH 30.6 MCHC 34.3 RDW 13.4 Plt Count 139 L Seg Neutrophils % 58.7 Lymphocytes % 29.6 Monocytes % 10.8 Eosinophils % 0.6 Basophils % 0.3 Absolute Neutrophils 3.2 Absolute Lymphocytes 1.6 Absolute Monocytes 0.6 Absolute Eosinophils 0.0 Absolute Basophils 0.0 Sodium 138.5 Potassium 5.5 H 5.8 H Chloride 110 H Carbon Dioxide 18 L Anion Gap 11 BUN 51 H Creatinine 6.97 H Est GFR ( Amer) 10 L Est GFR (Non-Af Amer) 8 L Glucose 89 Calcium 8.0 L Magnesium 1.7 Total Bilirubin 0.3 AST 19 ALT 31 Alkaline Phosphatase 57 Total Protein 5.4 L Albumin 3.0 L 11/24/18 07:34 Troponin I < 0.012 Impressions: Renal Ultrasound 11/24/18 00:00 IMPRESSION: Both kidneys demonstrate increased echogenicity of the renal parenchyma. The possibility of chronic medical renal disease cannot be excluded. Head CT 11/24/18 07:56 IMPRESSION: No acute intracranial hemorrhage or acute territorial infarct. Carotid Doppler Study 11/25/18 00:00 IMPRESSION: Soft plaque at the right carotid bifurcation worrisome for flow significant stenosis right proximal internal carotid artery. However, velocity measurements in the proximal right internal carotid artery suggest against flow significant stenosis. The CT angio of the neck with IV contrast is recommended for further evaluation of the right carotid bifurcation. No flow significant stenosis at the left carotid bifurcation. Antegrade pulsatile vertebral artery flow bilaterally. Chest X-Ray 11/25/18 00:00 IMPRESSION: 1. NO ACUTE RADIOGRAPHIC FINDING IN THE CHEST. Assessment & Plan - Diagnosis (1) Kidney failure, acute Qualifiers: Acute renal failure type: unspecified Qualified Code(s): N17.9 - Acute kidney failure, unspecified Is this a current diagnosis for this admission?: Yes Plan: Presents with BUN 39 and Cr 5.87. Previous Cr was WNL. Symptoms of lightheadness and weakeness started around time of Lisinopril. Most likely etiology is medication included (also taking Neurontin and Lyrica). - Start gentle fluids at 75 cc/hour and encourage PO - Renal ultrasound ordered to rule out obstruction - Holding lisinopril, neurontin, lyrica - Avoid nephrotoxin including NSAIDs - Renal consulted (Dr. Estevez), appreciate recs - Follow up Cr in AM - NO indication of urgent dialysis at this time 11/25/2018 lab work today creatinine was 6.62 and potassium went up to 5.9. Discussed care plan with Dr. Estevez the recommendation is to increase the fluid s to 125 cc/h and give Veltassa 25.6 g for hyperkalemia. She is going to see the patient today. Renal ultrasound was done no hydronephrosis was found. There is mention about a chronic renal disease cannot be ruled out. Acute renal failure may be most likely secondary to lisinopril. Which was on hold appropriately. Going to do the daily labs. And to repeat the potassium around 4 PM today. 11/26/2018-creatinine today is 6.97 and potassium is 5.9. Patient is involved thousand 25.6 g daily. Plan is to give D50 1 ampoule +1 amp of bicarb +6 units of IV insulin. He is on IV fluids at 125 cc/h, because of concern about fluid overload plan is to decrease the fluids to 75 cc/h. Dr. Estevez is on board. Necessary patient and family are willing to go for short-term dialysis. Acute renal failure most likely secondary to lisinopril. Renal plan was requested for tomorrow and we are going to repeat the potassium around 4 PM today. No uremic symptoms on examination. No pericardial rub. Patient is nonoliguric. (2) Confusion Is this a current diagnosis for this admission?: Yes Plan: Patient's BUN and today is 46. Patient came in with confusion/altered mental status. This morning able to give good information about his medical condition and the present situation. This confusion may be secondary to uremia. Plan to repeat the BUN tomorrow. Patient's baseline BUN is around 10 it is 48 today. 11/26/2018-patient's BUN is 51 today, baseline is around 10. Altered mental status/confusion/acute encephalopathy is resolving. Patient is alert and awake communicating very well. Confusion/altered mental status most likely secondary to acute renal failure with elevated BUN. (3) Hypertension Is this a current diagnosis for this admission?: Yes Plan: 11/21/2018-patient was hypotensive blood pressure is 90/45 despite on fluids normal saline at 75 cc/h. Fluid rate was increased to 125 cc/h. Patient is asymptomatic except for dizziness. 11/26/2018-patient was hypotensive yesterday with a blood pressure of 90/61 he received IV fluids normal saline at 125 cc/h blood pressure this morning 126/81. Hypotension is resolving. Fluids rate is decreased to 75 cc/h because of concern about possible overload. (4) Vertigo Is this a current diagnosis for this admission?: Yes Plan: 11/25/2018-patient came in with the dizziness and vertigo for the last few weeks. He has also history of fall. CT head was negative. CT of the neck was done to rule out any stenosis. 11/26/2018-patient has history of dizziness and vertigo for the last several weeks. Unable to do the CT of the neck. Carotid Doppler was done the report mentioning about possibility of proximal right internal carotid artery stenosis. Patient is going for MRA today. - Time Time Spent with patient: 15-24 minutes Medications reviewed and adjusted accordingly: Yes Anticipated discharge: Home
[2018-11-26] MEDS ORDERED: SODIUM BICARBONATE 8.4% INJ 50 MEQ/50 ML DISP.SYRIN IV ONE (10:15)
--- NOTE | 2018-11-26 11:22 | RADIOLOGY REPORT (SQ) ---
EXAM DESCRIPTION: MRA NECK WITHOUT COMPLETED DATE/TIME: 11/26/2018 10:32 am REASON FOR STUDY: syncope R69 ILLNESS, UNSPECIFIED COMPARISON: None. TECHNIQUE: Axial 2-D volume acquisition imaging through the extracranial carotid and vertebral arter ies with reformatting using 3-D MIPS. LIMITATIONS: Motion. FINDINGS: RIGHT CAROTID ARTERY: No stenosis or occlusive changes. Limited visualization of the orig in. LEFT CAROTID ARTERY: No stenosis or occlusive changes. Limited visualization of the origin. VERTEBRAL ARTERY: The extracranial portions of the vertebral basilar system are preserved without dimitrios nosis. No aneurysmal dilatation or dissection is seen. OTHER: No other significant finding. IMPRESSION: NO SIGNIFICANT STENOSIS. COMMENT: Quality ID #[id number]: Measurements of distal internal carotid diameter were used as the denomin ator for stenosis measurement. TECHNICAL DOCUMENTATION: JOB ID: [id number] [employer]- All Rights Reserved Reading location - IP/workstation name: [email or web address]
[2018-11-26] MEDS: ALBUTEROL SULFATE 0.042% NEB (1.25 MG/3 ML) AMPUL NEB SCH ×4 (11:57→23:54)
[2018-11-26 17:15] LABS: ANION GAP 9 (5-19); BLOOD UREA NITROGEN 53 mg/dL (7-20); CALCIUM 8.1 mg/dL (8.4-10.2); CARBON DIOXIDE 23 mmol/L (22-30); CHLORIDE 110 mmol/L (98-107); GLUCOSE 89 mg/dL (75-110); POTASSIUM 4.9 mmol/L (3.6-5.0)
[2018-11-26] MEDS ORDERED: FUROSEMIDE INJ/PF 40 MG/4 ML SDV IV ONE (18:30)
[2018-11-26] MEDS ORDERED: CALCIUM GLUCONATE 1000 MG/10 ML INJ IV ONE (18:30)
--- NOTE | 2018-11-26 21:09 | PDOC PROGRESS REPORT ---
Subjective Progress Note for:: 11/26/18 Subjective:: She reports that he is feeling more tired today. Daughter at bedside confirms that patient has been sleeping all day today. His appetite has been decreased more today. He denies any nausea, vomiting, shortness of breath or chest pains. He continues to make adequate urine output. Yesterday he made 2130 mL. He is to be hyperkalemic he was given sodium bicarbonate and regular insulin today. I also gave him a dose of veltassa 25.2 g x1 dose. Reason For Visit: ACUTE RENAL FAILURE Physical Exam Vital Signs: Temp Pulse Resp BP Pulse Ox 98.7 F 72 16 94/48 L 95 11/26/18 15:20 11/26/18 20:14 11/26/18 20:14 11/26/18 15:20 11/26/18 20:14 Intake & Output 11/25/18 11/26/18 11/27/18 06:59 06:59 06:59 Intake Total 5860 1650 1318 Output Total 1735 2130 1000 Balance 4125 -480 318 Weight 89.5 kg 87.9 kg Exam: General appearance: PRESENT: no acute distress, cooperative, well-developed, well-nourished Head exam: PRESENT: atraumatic, normocephalic Eye exam: PRESENT: conjunctiva pink, PERRLA. ABSENT: scleral icterus Neck exam: ABSENT: JVD Respiratory exam: PRESENT: Normal breath sounds. ABSENT: crackles, rales, rhonchi, unlabored, wheezes Cardiovascular exam: PRESENT: Regular rate rhythm -+S1, +S2. ABSENT: diastolic murmur, systolic murmur GI/Abdominal exam: PRESENT: normal bowel sounds, soft. ABSENT: guarding, mass, tenderness Extremities exam: ABSENT: No edema Neurological exam: PRESENT: alert, awake, oriented to person, place and time. Skin exam: PRESENT: dry, warm, Results Laboratory Results: 11/26/18 04:08 11/26/18 16:43 11/26/18 11/26/18 11/26/18 04:08 04:08 16:43 WBC 5.5 RBC 3.18 L Hgb 9.7 L Hct 28.4 L MCV 89 MCH 30.6 MCHC 34.3 RDW 13.4 Plt Count 139 L Seg Neutrophils % 58.7 Lymphocytes % 29.6 Monocytes % 10.8 Eosinophils % 0.6 Basophils % 0.3 Absolute Neutrophils 3.2 Absolute Lymphocytes 1.6 Absolute Monocytes 0.6 Absolute Eosinophils 0.0 Absolute Basophils 0.0 Sodium 138.5 142.0 Potassium 5.8 H 4.9 Chloride 110 H 110 H Carbon Dioxide 18 L 23 Anion Gap 11 9 BUN 51 H 53 H Creatinine 6.97 H 7.53 H Est GFR ( Amer) 10 L 9 L Est GFR (Non-Af Amer) 8 L 7 L Glucose 89 89 Calcium 8.0 L 8.1 L Magnesium 1.7 Total Bilirubin 0.3 AST 19 ALT 31 Alkaline Phosphatase 57 Total Protein 5.4 L Albumin 3.0 L 11/24/18 07:34 Troponin I < 0.012 Impressions: Renal Ultrasound 11/24/18 00:00 IMPRESSION: Both kidneys demonstrate increased echogenicity of the renal parenchyma. The possibility of chronic medical renal disease cannot be excluded. Head CT 11/24/18 07:56 IMPRESSION: No acute intracranial hemorrhage or acute territorial infarct. Carotid Doppler Study 11/25/18 00:00 IMPRESSION: Soft plaque at the right carotid bifurcation worrisome for flow significant stenosis right proximal internal carotid artery. However, velocity measurements in the proximal right internal carotid artery suggest against flow significant stenosis. The CT angio of the neck with IV contrast is recommended for further evaluation of the right carotid bifurcation. No flow significant stenosis at the left carotid bifurcation. Antegrade pulsatile vertebral artery flow bilaterally. Chest X-Ray 11/25/18 00:00 IMPRESSION: 1. NO ACUTE RADIOGRAPHIC FINDING IN THE CHEST. Neck MRA 11/26/18 00:00 IMPRESSION: NO SIGNIFICANT STENOSIS. Assessment & Plan - Diagnosis (1) Acute kidney injury Is this a current diagnosis for this admission?: Yes Plan: Secondary to ATN due to hypotension due to high-dose lisinopril. This point the patient seemed to be symptomatic worsening kidney function. Recommend acute renal replacement therapy to be done tomorrow. Explained to the patient is and daughter at bedside regarding the procedure, benefits and risk of dialysis to include bleeding, infection, hemodynamic instability eluding cardiac arrest is rarely during treatment. Patient and family agreed to proceed. I will consult surgery to place peripherally trialysis catheter for dialysis tomorrow. We will continue to monitor kidney function with the hope that this is still reversible he would only need short-term acute hemodialysis. We will continue to monitor kidney function and adjust treatment accordingly. Meanwhile I am going to give the patient a dose of Lasix 40 mg intravenously x1 dose tonight. (2) Hyperkalemia Is this a current diagnosis for this admission?: Yes Plan: Repeat potassium was 4.9. (3) Hypotension Is this a current diagnosis for this admission?: Yes - Notes Notes: Discussed the case with patient and family. Discussed plan with his nurse. - Time Time with patient: Greater than 35 minutes
[2018-11-26] MEDS: ATORVASTATIN CALCIUM 20 MG TABLET PO SCH (21:46)
--- NOTE | 2018-11-26 22:53 | Operative Report ---
Nonrecallable Operative Report DATE OF SURGERY: 11/26/18 PREOPERATIVE DIAGNOSIS: renal failure POSTOPERATIVE DIAGNOSIS: same OPERATION: 1. ultrasound guided central venous puncture. 2. right IJ Vas-cath placement SURGEON: MACK PETERSON ANESTHESIA: Local TISSUE REMOVED OR ALTERED: none COMPLICATIONS: none apparent ESTIMATED BLOOD LOSS: minimal PROCEDURE: Implants: right IJ vas-cath Procedure: After informed consent was obtained, the pt was laid in the trendelenburg position. The neck was prepped and draped in sterile fashion. 1% lidocaine was used to anesthetize the skin. The ultrasound was used to identify the right internal jugular vein. It was compressible with normal flow. Under direct ultrasound guidance, the right IJ was cannulated with the supplied access needle. The wire was then easily inserted. The wire was confirmed to be within the vein using the ultrasound device. The catheter was then slid over the wire using a modified Seldinger method. The catheter was sutured to the skin. The ports flushed easily x3. A dressing was placed, and the procedure was concluded. All sponge, instruments, and needle counts were correct. Condition: stable.
[2018-11-27] MEDS: OXYCODONE HCL IR 5 MG TABLET PO PRN ×3 (02:06→18:05)
[2018-11-27] MEDS: ALBUTEROL SULFATE 0.042% NEB (1.25 MG/3 ML) AMPUL NEB SCH ×2 (04:18→07:58)
[2018-11-27] MEDS ORDERED: NORMAL SALINE 1000 ML 1,000 ML IV PRN (05:00)
[2018-11-27] MEDS: HEPARIN SOD (PORCINE) 5,000 UNIT/ML 1 ML SYRINGE SUBCUT SCH ×3 (05:26→21:28)
[2018-11-27] MEDS: LANSOPRAZOLE 30 MG TAB.RAP.DR PO SCH (05:30)
[2018-11-27 05:43] LABS: ABSOLUTE LYMPHOCYTES (AUTO) 1.5 10^3/uL (0.5-4.7); ABSOLUTE MONOCYTES (AUTO) 0.6 10^3/uL (0.1-1.4); BASOPHILS % (AUTO) 0.1 % (0-2); EOSINOPHILS % (AUTO) 0.6 % (0-6); HEMATOCRIT 27.2 % (37.9-51.0); HEMOGLOBIN 9.5 g/dL (13.5-17.0); LYMPHOCYTES % (AUTO) 29.4 % (13-45); MEAN CORPUSCULAR HEMOGLOBIN 30.8 pg (27.0-33.4); MEAN CORPUSCULAR HGB CONC 34.9 g/dL (32.0-36.0); MEAN CORPUSCULAR VOLUME 88 fl (80-97); PLATELET COUNT 149 10^3/uL (150-450); RED BLOOD COUNT 3.08 10^6/uL (4.35-5.55); RED CELL DISTRIBUTION WIDTH 13.5 % (11.5-14.0); SEGMENTED NEUTROPHILS % (AUTO) 58.9 % (42-78); TOTAL CELLS COUNTED % (AUTO) 100 %
[2018-11-27 06:29] LABS: ALANINE AMINOTRANSFERASE 30 U/L (21-72); ALKALINE PHOSPHATASE 48 U/L (38-126); ANION GAP 12 (5-19); ASPARTATE AMINO TRANSFERASE 17 U/L (17-59); BILIRUBIN,DIRECT 0.2 mg/dL (0.0-0.4); BILIRUBIN,TOTAL 0.3 mg/dL (0.2-1.3); BLOOD UREA NITROGEN 53 mg/dL (7-20); CALCIUM 8.1 mg/dL (8.4-10.2); CARBON DIOXIDE 21 mmol/L (22-30); CHLORIDE 108 mmol/L (98-107); GLUCOSE 100 mg/dL (75-110); SODIUM 141.2 mmol/L (137-145); TOTAL PROTEIN 5.4 g/dL (6.3-8.2)
[2018-11-27] MEDS: ACETAMINOPHEN 325 MG TABLET PO PRN ×2 (08:11→18:05)
[2018-11-27] MEDS ORDERED: OXYCODONE HCL IR 5 MG TABLET PO ONE (09:00)
--- NOTE | 2018-11-27 11:16 | PDOC PROGRESS REPORT ---
Subjective Progress Note for:: 11/27/18 Subjective:: 11/25/[id number]-ud[age]-old male with history of hypertension vertigo started on lisinopril 4 months ago started having lightheadedness and dizzy spells dose was decreased to 10 mg daily in September 2018 symptoms are improved but still having the problems of lightheadedness and dizzy spells in association with history of fall on 11/23/2018. At home the systolic blood pressures are in the 90s or 100s, no problems with appetite. No fever no chills no chest pain no shortness of breath no abdominal pain no nausea decided to came to the emergency room for further evaluation. In the emergency room he was found to be in acute renal failure creatinine 5.6 and baseline creatinine of 0.8 in May of last year. Patient is still complaining of lightheadedness on examination this morning he is receiving IV fluids at 75 cc/h blood pressure is 90/71. Complains of mild shortness of breath. Discussed the plan of care with Dr. Estevez she is very helpful and she recommended to put the patient on Veltassa 25.6 g for hyperkalemia with potassium of 5.9, and to increase the fluids to 125 cc/h. Dr. Estevez is going to see the patient this evening. 11/26/2018-no acute events in the last 24 hours. Patient is afebrile. Blood pressure was improved to 126/61. He is in IV fluids normal saline at 125 cc/h. His hyperkalemia still persisting potassium is 5.9 and a creatinine is worsened to6.97. Patient is on Veltassa and it is not working well. Carotid Doppler was done there is possibility of [place] mL right internal carotid artery stenosis. pt is going for MRA today. 11/27/2018-nephrology follow-up was done yesterday because of the hyperkalemia patient is getting less physically sleepy and worsening of the creatinine plan was to dialyze the patient today. Nathalia placed nontender catheter. Patient is going for dialysis today. Reason For Visit: ACUTE RENAL FAILURE Physical Exam Vital Signs: Temp Pulse Resp BP Pulse Ox 98.3 F 74 17 103/46 L 96 11/27/18 07:56 11/27/18 07:58 11/27/18 07:58 11/27/18 07:56 11/27/18 07:58 Intake & Output 11/26/18 11/27/18 11/28/18 06:59 06:59 06:59 Intake Total 1650 1318 Output Total 2139 0540 Balance -480 -1532 Weight 87.9 kg 87.7 kg General appearance: PRESENT: no acute distress Head exam: PRESENT: atraumatic Eye exam: PRESENT: PERRLA Mouth exam: PRESENT: moist, tongue midline Neck exam: ABSENT: carotid bruit, JVD, lymphadenopathy, thyromegaly Respiratory exam: PRESENT: clear to auscultation cricket. ABSENT: rales, rhonchi, wheezes Cardiovascular exam: PRESENT: other - No pericardial rub on exam. GI/Abdominal exam: PRESENT: normal bowel sounds, soft. ABSENT: distended, guarding, mass, organolmegaly, rebound, tenderness Extremities exam: PRESENT: full ROM. ABSENT: calf tenderness, clubbing, pedal edema Neurological exam: PRESENT: alert, awake, oriented to person, oriented to place, oriented to time, oriented to situation, CN II-XII grossly intact. ABSENT: motor sensory deficit Psychiatric exam: PRESENT: appropriate affect, normal mood. ABSENT: homicidal ideation, suicidal ideation Results Laboratory Results: 11/27/18 04:39 11/27/18 04:39 11/26/18 11/27/18 11/27/18 16:43 04:39 04:39 WBC 5.0 RBC 3.08 L Hgb 9.5 L Hct 27.2 L MCV 88 MCH 30.8 MCHC 34.9 RDW 13.5 Plt Count 149 L Seg Neutrophils % 58.9 Lymphocytes % 29.4 Monocytes % 11.0 Eosinophils % 0.6 Basophils % 0.1 Absolute Neutrophils 3.0 Absolute Lymphocytes 1.5 Absolute Monocytes 0.6 Absolute Eosinophils 0.0 Absolute Basophils 0.0 Sodium 142.0 141.2 Potassium 4.9 5.0 Chloride 110 H 108 H Carbon Dioxide 23 21 L Anion Gap 9 12 BUN 53 H 53 H Creatinine 7.53 H 7.71 H Est GFR ( Amer) 9 L 9 L Est GFR (Non-Af Amer) 7 L 7 L Glucose 89 100 Calcium 8.1 L 8.1 L Magnesium 1.7 Total Bilirubin 0.3 AST 17 ALT 30 Alkaline Phosphatase 48 Total Protein 5.4 L Albumin 3.0 L 11/24/18 07:34 Troponin I < 0.012 Impressions: Renal Ultrasound 11/24/18 00:00 IMPRESSION: Both kidneys demonstrate increased echogenicity of the renal parenchyma. The possibility of chronic medical renal disease cannot be excluded. Head CT 11/24/18 07:56 IMPRESSION: No acute intracranial hemorrhage or acute territorial infarct. Carotid Doppler Study 11/25/18 00:00 IMPRESSION: Soft plaque at the right carotid bifurcation worrisome for flow significant stenosis right proximal internal carotid artery. However, velocity measurements in the proximal right internal carotid artery suggest against flow significant stenosis. The CT angio of the neck with IV contrast is recommended for further evaluation of the right carotid bifurcation. No flow significant stenosis at the left carotid bifurcation. Antegrade pulsatile vertebral artery flow bilaterally. Chest X-Ray 11/25/18 00:00 IMPRESSION: 1. NO ACUTE RADIOGRAPHIC FINDING IN THE CHEST. Neck MRA 11/26/18 00:00 IMPRESSION: NO SIGNIFICANT STENOSIS. Assessment & Plan - Diagnosis (1) Kidney failure, acute Qualifiers: Acute renal failure type: unspecified Qualified Code(s): N17.9 - Acute kidney failure, unspecified Is this a current diagnosis for this admission?: Yes Plan: Presents with BUN 39 and Cr 5.87. Previous Cr was WNL. Symptoms of lightheadness and weakeness started around time of Lisinopril. Most likely etiology is medication included (also taking Neurontin and Lyrica). - Start gentle fluids at 75 cc/hour and encourage PO - Renal ultrasound ordered to rule out obstruction - Holding lisinopril, neurontin, lyrica - Avoid nephrotoxin including NSAIDs - Renal consulted (Dr. Estevez), appreciate recs - Follow up Cr in AM - NO indication of urgent dialysis at this time 11/25/2018 lab work today creatinine was 6.62 and potassium went up to 5.9. Discussed care plan with Dr. Estevez the recommendation is to increase the fluids to 125 cc/h and give Veltassa 25.6 g for hyperkalemia. She is going to see the patient today. Renal ultrasound was done no hydronephrosis was found. There is mention about a chronic renal disease cannot be ruled out. Acute renal failure may be most likely secondary to lisinopril. Which was on hold appropriately. Going to do the daily labs. And to repeat the potassium around 4 PM today. 11/26/2018-creatinine today is 6.97 and potassium is 5.9. Patient is involved thousand 25.6 g daily. Plan is to give D50 1 ampoule +1 amp of bicarb +6 units of IV insulin. He is on IV fluids at 125 cc/h, because of concern about fluid overload plan is to decrease the fluids to 75 cc/h. Dr. Estevez is on board. Necessary patient and family are willing to go for short-term dialysis. Acute renal failure most likely secondary to lisinopril. Renal plan was requested for tomorrow and we are going to repeat the potassium around 4 PM today. No uremic symptoms on examination. No pericardial rub. Patient is nonoliguric. 11/27/2018 patient was admitted with acute kidney failure most likely acute tubular necrosis secondary to lisinopril. Patient has nontender catheter was placed he is going for dialysis today. Potassium was improved to 5 but the creatinine is trending up peaked to 7.71 today. Plan is to repeat the labs tomorrow. (2) Confusion Is this a current diagnosis for this admission?: Yes Plan: Patient's BUN and today is 46. Patient came in with confusion/altered mental status. This morning able to give good information about his medical condition and the present situation. This confusion may be secondary to uremia. Plan to repeat the BUN tomorrow. Patient's baseline BUN is around 10 it is 48 today. 11/26/2018-patient's BUN is 51 today, baseline is around 10. Altered mental status/confusion/acute encephalopathy is resolving. Patient is alert and awake communicating very well. Confusion/altered mental status most likely secondary to acute renal failure with elevated BUN. 11/27/2018. Patient's BUN 53 today comfortably in the bed but family saying that he is more sleepy since yesterday more confused probably due to uremia. Patient is going for dialysis today. Hopefully hemodialysis will remove the toxins and leads to improvement in his physical and mental condition. (3) Hypertension Is this a current diagnosis for this admission?: Yes Plan: 11/21/2018-patient was hypotensive blood pressure is 90/45 despite on fluids normal saline at 75 cc/h. Fluid rate was increased to 125 cc/h. Patient is asymptomatic except for dizziness. 11/26/2018-patient was hypotensive yesterday with a blood pressure of 90/61 he received IV fluids normal saline at 125 cc/h blood pressure this morning 126/81. Hypotension is resolving. Fluids rate is decreased to 75 cc/h because of concern about possible overload. 11/27/2018-patient blood pressure is soft it is 103/48 today. Asymptomatic. He is receiving fluids at 75 cc/h today. Plan is to continue the present management. (4) Vertigo Is this a current diagnosis for this admission?: Yes (5) Hyperkalemia Is this a current diagnosis for this admission?: Yes Plan: 11/27/2018-patient is admitted with acute renal failure and hyperkalemia with the treatment of Veltassa 25.6 g daily, given 1 amp of D50 +1 ampoule of bicarb 0.6 units of IV regular insulin yesterday potassium was improved to 5.0 today. Patient is going for dialysis today. Hopefully it will lead to further improvement in his potassium levels. - Time Time Spent with patient: 15-24 minutes Medications reviewed and adjusted accordingly: Yes Anticipated discharge: Home
--- NOTE | 2018-11-27 20:54 | PDOC PROGRESS REPORT ---
Subjective Progress Note for:: 11/27/18 Subjective:: I saw the patient during this afternoon for his first dialysis treatment. We dialyzed him for 2-1/2 hours using his right IJ trialysis catheter. He continues to make urine but due to trauma of pulling the catheter is been having some gross hematuria so the [place] catheter was removed today. Otherwise he tolerated dialysis well. We did not get any ultrafiltration since the patient is still making urine. Reason For Visit: ACUTE RENAL FAILURE Physical Exam Vital Signs: Temp Pulse Resp BP Pulse Ox 98.5 F 92 18 119/63 98 11/27/18 19:30 11/27/18 19:30 11/27/18 19:30 11/27/18 19:30 11/27/18 19:30 Intake & Output 11/26/18 11/27/18 11/28/18 06:59 06:59 06:59 Intake Total 1650 1318 621 Output Total 2130 2850 1075 Balance -480 -1468 -228 Weight 87.9 kg 87.7 kg Vitals during dialysis: Blood pressure 144/75, heart rate of 67, blood flow rate of 250 mL/min, and dialysate flow rate of 500 mL/min. Exam: General appearance: PRESENT: no acute distress, cooperative, well-developed, well-nourished Head exam: PRESENT: atraumatic, normocephalic Eye exam: PRESENT: conjunctiva pink, PERRLA. ABSENT: scleral icterus Neck exam: ABSENT: JVD Respiratory exam: PRESENT: Normal breath sounds. ABSENT: crackles, rales, rhonchi, unlabored, wheezes Cardiovascular exam: PRESENT: Regular rate rhythm -+S1, +S2. ABSENT: diastolic murmur, systolic murmur GI/Abdominal exam: PRESENT: normal bowel sounds, soft. ABSENT: guarding, mass, tenderness Extremities exam: ABSENT: No edema Neurological exam: PRESENT: alert, awake, oriented to person, place and time. Skin exam: PRESENT: dry, warm, Results Laboratory Results: 11/27/18 04:39 11/27/18 04:39 11/27/18 11/27/18 04:39 04:39 WBC 5.0 RBC 3.08 L Hgb 9.5 L Hct 27.2 L MCV 88 MCH 30.8 MCHC 34.9 RDW 13.5 Plt Count 149 L Seg Neutrophils % 58.9 Lymphocytes % 29.4 Monocytes % 11.0 Eosinophils % 0.6 Basophils % 0.1 Absolute Neutrophils 3.0 Absolute Lymphocytes 1.5 Absolute Monocytes 0.6 Absolute Eosinophils 0.0 Absolute Basophils 0.0 Sodium 141.2 Potassium 5.0 Chloride 108 H Carbon Dioxide 21 L Anion Gap 12 BUN 53 H Creatinine 7.71 H Est GFR ( Amer) 9 L Est GFR (Non-Af Amer) 7 L Glucose 100 Calcium 8.1 L Magnesium 1.7 Total Bilirubin 0.3 AST 17 ALT 30 Alkaline Phosphatase 48 Total Protein 5.4 L Albumin 3.0 L 11/24/18 07:34 Troponin I < 0.012 Impressions: Renal Ultrasound 11/24/18 00:00 IMPRESSION: Both kidneys demonstrate increased echogenicity of the renal parenchyma. The possibility of chronic medical renal disease cannot be excluded. Head CT 11/24/18 07:56 IMPRESSION: No acute intracranial hemorrhage or acute territorial infarct. Carotid Doppler Study 11/25/18 00:00 IMPRESSION: Soft plaque at the right carotid bifurcation worrisome for flow significant stenosis right proximal internal carotid artery. However, velocity measurements in the proximal right internal carotid artery suggest against flow significant stenosis. The CT angio of the neck with IV contrast is recommended for further evaluation of the right carotid bifurcation. No flow significant stenosis at the left carotid bifurcation. Antegrade pulsa tile vertebral artery flow bilaterally. Chest X-Ray 11/25/18 00:00 IMPRESSION: 1. NO ACUTE RADIOGRAPHIC FINDING IN THE CHEST. Neck MRA 11/26/18 00:00 IMPRESSION: NO SIGNIFICANT STENOSIS. Assessment & Plan - Diagnosis (1) Acute kidney injury Is this a current diagnosis for this admission?: Yes Plan: Secondary to ATN due to hypotension due to high-dose lisinopril. Patient and family agreed for acute renal replacement therapy. We did dialysis today for 2.5 hours, using the patient's right IJ trialysis catheter, with 2 potassium bath, blood flow rate of 250 mL per minute, dialysate flow rate of 500 mL per minute, ultrafiltration none, no heparin and no Procrit. Patient was monitored toward and tolerated dialysis well today. We will reevaluate for further need for hemodialysis after today. (2) Hyperkalemia Is this a current diagnosis for this admission?: Yes Plan: This should be controlled with hemodialysis.. (3) Hypotension Is this a current diagnosis for this admission?: Yes Plan: Hold any antihypertensive medications at this time including lisinopril. (4) Gross hematuria Is this a current diagnosis for this admission?: Yes Plan: Secondary to trauma. - Time Time with patient: 15-25 minutes
[2018-11-27] MEDS: ATORVASTATIN CALCIUM 20 MG TABLET PO SCH (21:27)
[2018-11-28] MEDS: ACETAMINOPHEN 325 MG TABLET PO PRN ×3 (02:05→16:40)
[2018-11-28] MEDS: OXYCODONE HCL IR 5 MG TABLET PO PRN ×3 (02:05→17:50)
[2018-11-28] MEDS: HEPARIN SOD (PORCINE) 5,000 UNIT/ML 1 ML SYRINGE SUBCUT SCH ×3 (05:05→22:05)
[2018-11-28] MEDS: LANSOPRAZOLE 30 MG TAB.RAP.DR PO SCH (05:12)
[2018-11-28 05:41] LABS: ABSOLUTE LYMPHOCYTES (AUTO) 1.5 10^3/uL (0.5-4.7); ABSOLUTE MONOCYTES (AUTO) 0.6 10^3/uL (0.1-1.4); ABSOLUTE NEUT (AUTO) 2.8 10^3/uL (1.7-8.2); BASOPHILS % (AUTO) 0.1 % (0-2); EOSINOPHILS % (AUTO) 0.8 % (0-6); HEMATOCRIT 29.3 % (37.9-51.0); HEMOGLOBIN 10.1 g/dL (13.5-17.0); LYMPHOCYTES % (AUTO) 30.8 % (13-45); MEAN CORPUSCULAR HEMOGLOBIN 30.7 pg (27.0-33.4); MEAN CORPUSCULAR HGB CONC 34.5 g/dL (32.0-36.0); MEAN CORPUSCULAR VOLUME 89 fl (80-97); MONOCYTES % (AUTO) 11.7 % (3-13); PLATELET COUNT 151 10^3/uL (150-450); RED CELL DISTRIBUTION WIDTH 13.6 % (11.5-14.0); SEGMENTED NEUTROPHILS % (AUTO) 56.6 % (42-78); TOTAL CELLS COUNTED % (AUTO) 100 %
[2018-11-28 05:50] LABS: ALANINE AMINOTRANSFERASE 32 U/L (21-72); ALBUMIN 3.4 g/dL (3.5-5.0); ALKALINE PHOSPHATASE 53 U/L (38-126); ANION GAP 10 (5-19); ASPARTATE AMINO TRANSFERASE 24 U/L (17-59); BILIRUBIN,DIRECT 0.2 mg/dL (0.0-0.4); BILIRUBIN,TOTAL 0.4 mg/dL (0.2-1.3); BLOOD UREA NITROGEN 34 mg/dL (7-20); CALCIUM 8.3 mg/dL (8.4-10.2); CARBON DIOXIDE 28 mmol/L (22-30); CHLORIDE 104 mmol/L (98-107); GLUCOSE 95 mg/dL (75-110); SODIUM 141.9 mmol/L (137-145); TOTAL PROTEIN 5.9 g/dL (6.3-8.2)
[2018-11-28 08:42] LABS: HEPATITS B SURFACE ANTIGEN Negative (Negative)
[2018-11-28] MEDS: NORMAL SALINE 1000 ML 1,000 ML IV PRN ×3 (09:09→22:11)
[2018-11-28 09:50] LABS: HEPATITIS B CORE AB TOT Negative (Negative); HEPATITIS B SURFACE AB QUANT 26.2 mIU/mL (Immunity>9)
--- NOTE | 2018-11-28 13:10 | PDOC PROGRESS REPORT ---
Subjective Progress Note for:: 11/28/18 Subjective:: Patient is doing fine today. His appetite is still not good but he also does not want to food in the hospital. and daughter confirms that he is not really drinking much fluids so he is on maintenance IV fluids. However he claims that his energy is much better and his not sleeping as much as 2 days ago. He had his first dialysis treatment yesterday and tolerated the procedure well without any problems no complications. Reason For Visit: ACUTE RENAL FAILURE Physical Exam Vital Signs: Temp Pulse Resp BP Pulse Ox 97.9 F 95 17 119/76 98 11/28/18 07:36 11/28/18 07:36 11/28/18 07:36 11/28/18 07:36 11/28/18 07:36 Intake & Output 11/27/18 11/28/18 11/29/18 06:59 06:59 06:59 Intake Total 1318 1101 5 Output Total 2850 2275 Balance -1532 -1174 5 Weight 87.7 kg 87.7 kg Exam: General appearance: PRESENT: no acute distress, cooperative, well-developed, well-nourished Head exam: PRESENT: atraumatic, normocephalic Eye exam: PRESENT: conjunctiva pink, PERRLA. ABSENT: scleral icterus Neck exam: ABSENT: JVD Respiratory exam: PRESENT: Normal breath sounds. ABSENT: crackles, rales, rhonchi, unlabored, wheezes Cardiovascular exam: PRESENT: Regular rate rhythm -+S1, +S2. ABSENT: diastolic murmur, systolic murmur GI/Abdominal exam: PRESENT: normal bowel sounds, soft. ABSENT: guarding, mass, tenderness Extremities exam: ABSENT: No edema Neurological exam: PRESENT: alert, awake, oriented to person, place and time. Skin exam: PRESENT: dry, warm, Results Laboratory Results: 11/28/18 04:44 11/28/18 04:44 11/28/18 11/28/18 04:44 04:44 WBC 5.0 RBC 3.30 L Hgb 10.1 L Hct 29.3 L MCV 89 MCH 30.7 MCHC 34.5 RDW 13.6 Plt Count 151 Seg Neutrophils % 56.6 Lymphocytes % 30.8 Monocytes % 11.7 Eosinophils % 0.8 Basophils % 0.1 Absolute Neutrophils 2.8 Absolute Lymphocytes 1.5 Absolute Monocytes 0.6 Absolute Eosinophils 0.0 Absolute Basophils 0.0 Sodium 141.9 Potassium 5.0 Chloride 104 Carbon Dioxide 28 Anion Gap 10 BUN 34 H Creatinine 5.21 H Est GFR ( Amer) 14 L Est GFR (Non-Af Amer) 11 L Glucose 95 Calcium 8.3 L Magnesium 1.7 Total Bilirubin 0.4 AST 24 ALT 32 Alkaline Phosphatase 53 Total Protein 5.9 L Albumin 3.4 L 11/25/18 20:45 Catheterized Urine Urine Culture - Final Staph Coagulase Negative 11/24/18 07:34 Troponin I < 0.012 Impressions: Renal Ultrasound 11/24/18 00:00 IMPRESSION: Both kidneys demonstrate increased echogenicity of the renal parenchyma. The possibility of chronic medical renal disease cannot be excluded. Head CT 11/24/18 07:56 IMPRESSION: No acute intracranial hemorrhage or acute territorial infarct. Carotid Doppler Study 11/25/18 00:00 IMPRESSION: Soft plaque at the right carotid bifurcation worrisome for flow significant stenosis right proximal internal carotid artery. However, velocity measurements in the proximal right internal carotid artery suggest against flow significant stenosis. The CT angio of the neck with IV contrast is recommended for further evaluation of the right carotid bifurcation. No flow significant stenosis at the left carotid bifurcation. Antegrade pulsatile vertebral artery flow bilaterally. Chest X-Ray 11/25/18 00:00 IMPRESSION: 1. NO ACUTE RADIOGRAPHIC FINDING IN THE CHEST. Neck MRA 11/26/18 00:00 IMPRESSION: NO SIGNIFICANT STENOSIS. Assessment & Plan - Diagnosis (1) Acute kidney injury Is this a current diagnosis for this admission?: Yes Plan: Secondary to ATN due to hypotension due to high-dose lisinopril. Patient and family agreed for acute renal replacement therapy. We will plan to do another dialysis treatment tomorrow. Encourage oral fluid intake. Meanwhile we will continue maintenance IV fluids. (2) Hyperkalemia Is this a current diagnosis for this admission?: Yes Plan: Improved with dialysis. (3) Hypotension Is this a current diagnosis for this admission?: Yes Plan: Hold any antihypertensive medications at this time including lisinopril. Blood pressure within acceptable limits without any medications. (4) Gross hematuria Is this a current diagnosis for this admission?: Yes Plan: Secondary to trauma. - Time Time with patient: 15-25 minutes
[2018-11-28] MEDS ORDERED: ONDANSETRON 4 MG TAB.RAPDIS PO PRN (14:00)
--- NOTE | 2018-11-28 21:20 | PDOC PROGRESS REPORT ---
Subjective Progress Note for:: 11/28/18 Subjective:: 11/25/[id number]-grnl-old male with history of hypertension vertigo started on lisinopril 4 months ago started having lightheadedness and dizzy spells dose was decreased to 10 mg daily in September 2018 symptoms are improved but still having the problems of lightheadedness and dizzy spells in association with history of fall on 11/23/2018. At home the systolic blood pressures are in the 90s or 100s, no problems with appetite. No fever no chills no chest pain no shortness of breath no abdominal pain no nausea decided to came to the emergency room for further evaluation. In the emergency room he was found to be in acute renal failure creatinine 5.6 and baseline creatinine of 0.8 in May of last year. Patient is still complaining of lightheadedness on examination this morning he is receiving IV fluids at 75 cc/h blood pressure is 90/71. Complains of mild shortness of breath. Discussed the plan of care with Dr. Estevez she is very helpful and she recommended to put the patient on Veltassa 25.6 g for hyperkalemia with potassium of 5.9, and to increase the fluids to 125 cc/h. Dr. Estevez is going to see the patient this evening. 11/26/2018-no acute events in the last 24 hours. Patient is afebrile. Blood pressure was improved to 126/61. He is in IV fluids normal saline at 125 cc/h. His hyperkalemia still persisting potassium is 5.9 and a creatinine is worsened to6.97. Patient is on Veltassa and it is not working well. Carotid Doppler was done there is possibility of [place] mL right internal carotid artery stenosis. pt is going for MRA today. 11/27/2018-nephrology follow-up was done yesterday because of the hyperkalemia patient is getting less physically sleepy and worsening of the creatinine plan was to dialyze the patient today. Nathalia placed nontender catheter. Patient is going for dialysis today. 11/28/18 patient evaluated with and daughter in the room. It seems his mentation is improved since dialysis yesterday. He also and reports an improvement in overall symptoms. Plan is to dialyze again tomorrow. Reports some debility sleeping and would like medication assistance. Daughter suggested Ambien. We discussed other options like melatonin, trazodone, Remeron. Patient also describes widespread arthritic joints. He reports a strong family history of rheumatoid arthritis. No previous workup for rheumatoid arthritis. Mild deformity in left hand. Overall presenting symptoms related to acute kidney injury have improved. Labs continue to trend in the correct way. Shortly after my evaluation patient contacted staff and requested new provider as they did not feel we discussed his kidney injury enough. Prior to leaving the room the family was offered the opportunity to express any concerns or asked if they had any further questions or needed anything at this time. The patient and the family denied all of the above. Reason For Visit: ACUTE RENAL FAILURE Physical Exam Vital Signs: Temp Pulse Resp BP Pulse Ox 98.9 F 77 16 109/69 96 11/28/18 19:46 11/28/18 19:46 11/28/18 19:46 11/28/18 19:46 11/28/18 19:46 Intake & Output 11/27/18 11/28/18 11/29/18 06:59 06:59 06:59 Intake Total 1318 1101 123 Output Total 2850 2275 500 Balance -1532 -1174 -377 Weight 87.7 kg 87.7 kg General appearance: PRESENT: no acute distress, cooperative, obese Head exam: PRESENT: atraumatic, normocephalic Eye exam: PRESENT: conjunctiva pink, EOMI, PERRLA. ABSENT: scleral icterus Mouth exam: PRESENT: moist, tongue midline Results Laboratory Results: 11/28/18 04:44 11/28/18 04:44 11/28/18 11/28/18 04:44 04:44 WBC 5.0 RBC 3.30 L Hgb 10.1 L Hct 29.3 L MCV 89 MCH 30.7 MCHC 34.5 RDW 13.6 Plt Count 151 Seg Neutrophils % 56.6 Lymphocytes % 30.8 Monocytes % 11.7 Eosinophils % 0.8 Basophils % 0.1 Absolute Neutrophils 2.8 Absolute Lymphocytes 1.5 Absolute Monocytes 0.6 Absolute Eosinophils 0.0 Absolute Basophils 0.0 Sodium 141.9 Potassium 5.0 Chloride 104 Carbon Dioxide 28 Anion Gap 10 BUN 34 H Creatinine 5.21 H Est GFR ( Amer) 14 L Est GFR (Non-Af Amer) 11 L Glucose 95 Calcium 8.3 L Magnesium 1.7 Total Bilirubin 0.4 AST 24 ALT 32 Alkaline Phosphatase 53 Total Protein 5.9 L Albumin 3.4 L 11/25/18 20:45 Catheterized Urine Urine Culture - Final Staph Coagulase Negative 11/24/18 07:34 Troponin I < 0.012 Impressions: Renal Ultrasound 11/24/18 00:00 IMPRESSION: Both kidneys demonstrate increased echogenicity of the renal parenchyma. The possibility of chronic medical renal disease cannot be excluded. Head CT 11/24/18 07:56 IMPRESSION: No acute intracranial hemorrhage or acute territorial infarct. Carotid Doppler Study 11/25/18 00:00 IMPRESSION: Soft plaque at the right carotid bifurcation worrisome for flow significant stenosis right proximal internal carotid artery. However, velocity measurements in the proximal right internal carotid artery suggest against flow significant stenosis. The CT angio of the neck with IV contrast is recommended for further evaluation of the right carotid bifurcation. No flow significant stenosis at the left carotid bifurcation. Antegrade pulsatile vertebral artery flow bilaterally. Chest X-Ray 11/25/18 00:00 IMPRESSION: 1. NO ACUTE RADIOGRAPHIC FINDING IN THE CHEST. Neck MRA 11/26/18 00:00 IMPRESSION: NO SIGNIFICANT STENOSIS. Assessment & Plan - Diagnosis (1) Chronic narcotic use Is this a current diagnosis for this admission?: Yes (2) Acute kidney injury Is this a current diagnosis for this admission?: Yes (3) Chronic back pain Is this a current diagnosis for this admission?: Yes (4) Confusion Is this a current diagnosis for this admission?: Yes (5) Hyperkalemia Is this a current diagnosis for this admission?: Yes (6) Vertigo Is this a current diagnosis for this admission?: Yes - Plan Summary Plan Summary: (1) Kidney failure, acute Qualifiers: Acute renal failure type: unspecified Qualified Code(s): N17.9 - Acute kidney failure, unspecified Is this a current diagnosis for this admission?: Yes Plan: Presents with BUN 39 and Cr 5.87. Previous Cr was WNL. Symptoms of lightheadness and weakeness started around time of Lisinopril. Most likely etiology is medication included (also taking Neurontin and Lyrica). - Start gentle fluids at 75 cc/hour and encourage PO - Renal ultrasound ordered to rule out obstruction - Holding lisinopril, neurontin, lyrica - Avoid nephrotoxin including NSAIDs - Renal consulted (Dr. Estevez), appreciate recs - Follow up Cr in AM - NO indication of urgent dialysis at this time 11/25/2018 lab work today creatinine was 6.62 and potassium went up to 5.9. Discussed care plan with Dr. Estevez the recommendation is to increase the fluids to 125 cc/h and give Veltassa 25.6 g for hyperkalemia. She is going to see the patient today. Renal ultrasound was done no hydronephrosis was found. There is mention about a chronic renal disease cannot be ruled out. Acute renal failure may be most likely secondary to lisinopril. Which was on hold appropriately. Going to do the daily labs. And to repeat the potassium around 4 PM today. 11/26/2018-creatinine today is 6.97 and potassium is 5.9. Patient is involved thousand 25.6 g daily. Plan is to give D50 1 ampoule +1 amp of bicarb +6 units of IV insulin. He is on IV fluids at 125 cc/h, because of concern about fluid overload plan is to decrease the fluids to 75 cc/h. Dr. Estevez is on board. Necessary patient and family are willing to go for short-term dialysis. Acute renal failure most likely secondary to lisinopril. Renal plan was requested for tomorrow and we are going to repeat the potassium around 4 PM today. No uremic symptoms on examination. No pericardial rub. Patient is nonoliguric. 11/27/2018 patient was admitted with acute kidney failure most likely acute tubular necrosis secondary to lisinopril. Patient has nontender catheter was placed he is going for dialysis today. Potassium was improved to 5 but the creatinine is trending up peaked to 7.71 today. Plan is to repeat the labs tomorrow. 11/28/18-scheduled to repeat hemodialysis tomorrow. Continue to follow with nephrology recommendations. Their input is appreciated. Continue to follow labs. (2) Confusion Is this a current diagnosis for this admission?: Yes Plan: Patient's BUN and today is 46. Patient came in with confusion/altered mental status. This morning able to give good information about his medical condition and the present situation. This confusion may be secondary to uremia. Plan to repeat the BUN tomorrow. Patient's baseline BUN is around 10 it is 48 today. 11/26/2018-patient's BUN is 51 today, baseline is around 10. Altered mental status/confusion/acute encephalopathy is resolving. Patient is alert and awake communicating very well. Confusion/altered mental status most likely secondary to acute renal failure with elevated BUN. 11/27/2018. Patient's BUN 53 today comfortably in the bed but family saying that he is more sleepy since yesterday more confused probably due to uremia. Patient is going for dialysis today. Hopefully hemodialysis will remove the toxins and leads to improvement in his physical and mental condition. 11/28/18-improved since hemodialysis. Continue to monitor. We will order low- dose Ambien to help with sleep as patient has reported this is worked before. Would recommend being evaluated outpatient for management with medication other than Ambien once renal function has hopefully returned to normal.. (3) Hypertension Is this a current diagnosis for this admission?: Yes Plan: 11/21/2018-patient was hypotensive blood pressure is 90/45 despite on fluids nor mal saline at 75 cc/h. Fluid rate was increased to 125 cc/h. Patient is asymptomatic except for dizziness. 11/26/2018-patient was hypotensive yesterday with a blood pressure of 90/61 he received IV fluids normal saline at 125 cc/h blood pressure this morning 126/81. Hypotension is resolving. Fluids rate is decreased to 75 cc/h because of concern about possible overload. 11/27/2018-patient blood pressure is soft it is 103/48 today. Asymptomatic. He is receiving fluids at 75 cc/h today. Plan is to continue the present management. 11/28/18-not a current issue. Continue to monitor. Last blood pressure 109/69. (4) Vertigo Is this a current diagnosis for this admission?: Yes 11/28/18-no recent complaints (5) Hyperkalemia Is this a current diagnosis for this admission?: Yes Plan: 11/27/2018-patient is admitted with acute renal failure and hyperkalemia with the treatment of Veltassa 25.6 g daily, given 1 amp of D50 +1 ampoule of bicarb 0.6 units of IV regular insulin yesterday potassium was improved to 5.0 today. Patient is going for dialysis today. Hopefully it will lead to further improvement in his potassium levels. 11/28/18-labs improving with dialysis and current management. Continue to trend. No EKG changes on admission. No problems reported on telemetry. 6. Chronic narcotic use-2 the patient was on gabapentin and Lyrica and has been on narcotics for arthritic joints. No prior workup for rheumatologic origin, though strong family history of rheumatoid arthritis. Check ESR, CRP, RF, JHONNY, and x-ray of the hands. Needs to follow with rheumatology on discharge. Recommend limiting narcotic use for pain management. 7. Possible carotid stenosis on previous testing ruled out on NECK MRA.
[2018-11-28] MEDS: ZOLPIDEM TARTRATE 5 MG TABLET PO SCH (22:07)
[2018-11-28] MEDS: ATORVASTATIN CALCIUM 20 MG TABLET PO SCH (22:07)
[2018-11-29] MEDS: OXYCODONE HCL IR 5 MG TABLET PO PRN (04:18)
[2018-11-29] MEDS: ACETAMINOPHEN 325 MG TABLET PO PRN ×2 (04:19→19:59)
[2018-11-29] MEDS ORDERED: NORMAL SALINE 1000 ML 1,000 ML IV PRN (05:00)
[2018-11-29] MEDS: HEPARIN SOD (PORCINE) 5,000 UNIT/ML 1 ML SYRINGE SUBCUT SCH ×3 (05:06→21:04)
[2018-11-29 05:16] LABS: ABSOLUTE LYMPHOCYTES (AUTO) 1.6 10^3/uL (0.5-4.7); ABSOLUTE MONOCYTES (AUTO) 0.6 10^3/uL (0.1-1.4); ABSOLUTE NEUT (AUTO) 2.5 10^3/uL (1.7-8.2); BASOPHILS % (AUTO) 0.3 % (0-2); HEMATOCRIT 27.2 % (37.9-51.0); HEMOGLOBIN 9.5 g/dL (13.5-17.0); LYMPHOCYTES % (AUTO) 33.3 % (13-45); MEAN CORPUSCULAR HEMOGLOBIN 31.2 pg (27.0-33.4); MEAN CORPUSCULAR VOLUME 89 fl (80-97); PLATELET COUNT 136 10^3/uL (150-450); RED BLOOD COUNT 3.04 10^6/uL (4.35-5.55); RED CELL DISTRIBUTION WIDTH 13.8 % (11.5-14.0); SEGMENTED NEUTROPHILS % (AUTO) 52.4 % (42-78); TOTAL CELLS COUNTED % (AUTO) 100 %; WHITE BLOOD COUNT 4.8 10^3/uL (4.0-10.5)
[2018-11-29] MEDS: LANSOPRAZOLE 30 MG TAB.RAP.DR PO SCH (05:23)
[2018-11-29 05:32] LABS: ANION GAP 7 (5-19); BLOOD UREA NITROGEN 33 mg/dL (7-20); C-REACTIVE PROTEIN 38.4 mg/L (<10.0); CALCIUM 8.2 mg/dL (8.4-10.2); CARBON DIOXIDE 25 mmol/L (22-30); CHLORIDE 108 mmol/L (98-107); GLUCOSE 91 mg/dL (75-110); POTASSIUM 4.8 mmol/L (3.6-5.0); SODIUM 139.9 mmol/L (137-145)
[2018-11-29 06:01] LABS: ERYTHROCYTE SEDIMENTATION RATE 70 mm/hr (0-20)
[2018-11-29] MEDS ORDERED: TRAMADOL HCL 50 MG TABLET PO PRN (09:16)
--- NOTE | 2018-11-29 09:21 | RADIOLOGY REPORT (SQ) ---
EXAM DESCRIPTION: HAND BILATERAL 2 VIEWS COMPLETED DATE/TIME: 11/29/2018 8:09 am REASON FOR STUDY: ra EVALUATION R69 ILLNESS, UNSPECIFIED COMPARISON: None. EXAM PARAMETERS: NUMBER OF VIEWS: Two view. TECHNIQUE: AP and lateral radiographic images acquired of the right and left hand. LIMITATIONS: None. FINDINGS: MINERALIZATION: Normal. Questionable juxta articular osteopenia. BONES: No evidence of fracture or dislocation. There are scattered marginal erosions most conspicuou s at the proximal interphalangeal joints of the 3rd and 4th digits on the left. Additional subchondr al cystic changes at bilateral metacarpophalangeal joints and throughout the carpals. Additional cricket ateral radiocarpal degenerative change and dysmorphic appearance, left greater than right. Bilateral ulnar positive variance. Evidence of prior left ulnar styloid fracture. There are additional scatt ered osteoarthritic degenerative changes throughout both hands. JOINTS: No large effusion. No significant subluxation. SOFT TISSUES: No significant soft tissue swelling. No radiopaque foreign body. OTHER: No other significant finding. IMPRESSION: 1. No evidence of acute bony abnormality. 2. Scattered subtle marginal erosions most conspicuous at the 3rd and 4th proximal interphalangeal j oints on the left with additional MCP and carpal bone subchondral cystic change. Findings can be see n with rheumatologic abnormality such as rheumatoid arthritis. No evidence of significant ulnar jolly ation. 3. 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 TECHNICAL DOCUMENTATION: JOB ID: [id number] [employer]- All Rights Reserved Reading location - IP/workstation name: [email or web address]
[2018-11-29] MEDS ORDERED: PHENAZOPYRIDINE HCL 200 MG TABLET PO PRN (09:56)
[2018-11-29] MEDS: HYDROCODONE/ACETAMINOPHEN 7.5-325 MG TABLET PO PRN ×2 (09:57→18:29)
[2018-11-29] MEDS ORDERED: PHENAZOPYRIDINE HCL 200 MG TABLET PO SCH (10:00)
[2018-11-29 10:39] LABS: HEPATITIS C QUANTITATION HCV Not Detected IU/mL (.)
[2018-11-29 14:59] LABS: AMORPHOUS SEDIMENT,URINE TRACE /HPF; APPEARANCE,URINE SLIGHTLY-CLOUDY; BILIRUBIN,URINE NEGATIVE (NEGATIVE); COLOR,URINE YELLOW; GLUCOSE, URINE NEGATIVE (NEGATIVE); KETONES,URINE TRACE mg/dL (NEGATIVE); LEUKOCYTE ESTERASE,URINE NEGATIVE (NEGATIVE); NITRITE,URINE NEGATIVE (NEGATIVE); PROTEIN,URINE >=500 mg/dL (NEGATIVE); URINE SPECIFIC GRAVITY 1.013; UROBILINOGEN,URINE NEGATIVE mg/dL (<2.0)
[2018-11-29] MEDS ORDERED: PROMETHAZINE HCL INJ 25 MG/1 ML VIAL ONE (15:23)
[2018-11-29] MEDS ORDERED: PROMETHAZINE HCL INJ 25 MG/1 ML VIAL IV PRN (15:34)
--- NOTE | 2018-11-29 16:34 | PDOC PROGRESS REPORT ---
Subjective Progress Note for:: 11/29/18 Subjective:: YURI SABILLON is a 63 year old male with a history of HTN, vertigo who presents with one week of worsening lightheadness and dizziness admitted to [facility] for acute kidney failure secondary to ATN (concurrent lisinopril, Lyrica, gabapentin, and NSAID use close parentheses. The patient was seen on morning rounds while in dialysis. He reports that he is feeling well today, though does note that he continues to have fatigue and some sluggishness. He reports that the edema to his bilateral lower extremities is improved. He does report continued urinary frequency and dysuria. He denies fever, chills, chest pain, palpitations, abdominal pain, nausea, vomiting, diarrhea. He has no other questions or concerns. Nursing reports that he continues to have pink tinged urine. Reason For Visit: ACUTE RENAL FAILURE Physical Exam Vital Signs: Temp Pulse Resp BP Pulse Ox 98.6 F 83 17 134/72 H 99 11/29/18 07:59 11/29/18 14:00 11/29/18 07:59 11/29/18 07:59 11/29/18 07:59 Intake & Output 11/28/18 11/29/18 11/30/18 06:59 06:59 06:59 Intake Total 1101 1576 500 Output Total 2275 1500 100 Balance -1174 76 400 Weight 87.7 kg 87.7 kg General appearance: PRESENT: no acute distress, well-developed, well-nourished Head exam: PRESENT: atraumatic, normocephalic Eye exam: PRESENT: conjunctiva pink, EOMI, PERRLA. ABSENT: scleral icterus Mouth exam: PRESENT: moist, tongue midline Neck exam: ABSENT: carotid bruit, JVD, lymphadenopathy, thyromegaly Respiratory exam: PRESENT: clear to auscultation cricket, symmetrical, unlabored. ABSENT: rales, rhonchi, wheezes Cardiovascular exam: PRESENT: RRR, +S1, +S2. ABSENT: diastolic murmur, rubs, systolic murmur Pulses: PRESENT: normal dorsalis pedis pul Vascular exam: PRESENT: normal capillary refill GI/Abdominal exam: PRESENT: normal bowel sounds, soft. ABSENT: distended, guarding, mass, organolmegaly, rebound, tenderness Rectal exam: PRESENT: deferred Extremities exam: PRESENT: full ROM, +1 edema - BLE. ABSENT: calf tenderness, clubbing, pedal edema Neurological exam: PRESENT: alert, awake, oriented to person, oriented to place, oriented to time, oriented to situation, CN II-XII grossly intact, other - Fatigue, slow speech. ABSENT: motor sensory deficit Psychiatric exam: PRESENT: appropriate affect, normal mood. ABSENT: homicidal ideation, suicidal ideation Skin exam: PRESENT: dry, intact, warm. ABSENT: cyanosis, rash Results Laboratory Results: 11/29/18 05:03 11/29/18 05:03 11/29/18 11/29/18 11/29/18 05:03 05:03 14:30 WBC 4.8 RBC 3.04 L Hgb 9.5 L Hct 27.2 L MCV 89 MCH 31.2 MCHC 35.0 RDW 13.8 Plt Count 136 L Seg Neutrophils % 52.4 Lymphocytes % 33.3 Monocytes % 13.0 Eosinophils % 1.0 Basophils % 0.3 Absolute Neutrophils 2.5 Absolute Lymphocytes 1.6 Absolute Monocytes 0.6 Absolute Eosinophils 0.0 Absolute Basophils 0.0 Sodium 139.9 Potassium 4.8 Chloride 108 H Carbon Dioxide 25 Anion Gap 7 BUN 33 H Creatinine 4.89 H Est GFR ( Amer) 15 L Est GFR (Non-Af Amer) 12 L Glucose 91 Calcium 8.2 L C-Reactive Protein 38.4 H Urine Color YELLOW Urine Appearance SLIGHTLY-CLOUDY Urine pH 9.0 Ur Specific [place] 1.013 Urine Protein >=500 H Urine Glucose (UA) NEGATIVE Urine Ketones TRACE H Urine Blood LARGE H Urine Nitrite NEGATIVE Ur Leukocyte Esterase NEGATIVE Urine WBC (Auto) 12 Urine RBC (Auto) >182 11/24/18 13:25 Blood Blood Culture - Final NO GROWTH IN 5 DAYS 11/24/18 07:34 Troponin I < 0.012 Impressions: Renal Ultrasound 11/24/18 00:00 IMPRESSION: Both kidneys demonstrate increased echogenicity of the renal pare nchyma. The possibility of chronic medical renal disease cannot be excluded. Head CT 11/24/18 07:56 IMPRESSION: No acute intracranial hemorrhage or acute territorial infarct. Carotid Doppler Study 11/25/18 00:00 IMPRESSION: Soft plaque at the right carotid bifurcation worrisome for flow significant stenosis right proximal internal carotid artery. However, velocity measurements in the proximal right internal carotid artery suggest against flow significant stenosis. The CT angio of the neck with IV contrast is recommended for further evaluation of the right carotid bifurcation. No flow significant stenosis at the left carotid bifurcation. Antegrade pulsatile vertebral artery flow bilaterally. Chest X-Ray 11/25/18 00:00 IMPRESSION: 1. NO ACUTE RADIOGRAPHIC FINDING IN THE CHEST. Neck MRA 11/26/18 00:00 IMPRESSION: NO SIGNIFICANT STENOSIS. Hand X-Ray 11/29/18 08:00 IMPRESSION: 1. No evidence of acute bony abnormality. 2. Scattered subtle marginal erosions most conspicuous at the 3rd and 4th proximal interphalangeal joints on the left with additional MCP and carpal bone subchondral cystic change. Findings can be seen with rheumatologic abnormality such as rheumatoid arthritis. No evidence of significant ulnar deviation. 3. 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 Assessment & Plan - Diagnosis (1) Acute kidney injury Is this a current diagnosis for this admission?: Yes Plan: Presents with BUN 39 and Cr 5.87. Previous Cr was WNL. Symptoms of lightheadness and weakeness started around time of Lisinopril. Most likely etiology is medica tion included (also taking Neurontin and Lyrica). Renal ultrasound ruled out obstruction Continue holding lisinopril, neurontin, lyrica Avoid nephrotoxin including NSAIDs Renal consulted (Dr. Estevez), appreciate recs. Patient at hemodialysis today. Primary management per nephrology. (2) Chronic narcotic use Is this a current diagnosis for this admission?: Yes Plan: Resume the patient's home medication regiment of [place] 7.53 times daily and tramadol 100 mg 3 times daily as needed. Outpatient follow-up with primary care provider. Consider outpatient pain management consultation. Patient reports strong history of rheumatoid arthritis; rheumatoid factor is negative. ESR and CRP are slightly elevated; may be related to patient's recent dialysis catheter placement. May also consider outpatient rheumatology follow- up. (3) Confusion Is this a current diagnosis for this admission?: Yes Plan: Likely Uremia related to Acute Kidney Failure; improved since beginning Dialysis. Head CT no acute findings. Monitor sedating medications closely; may require dose reduction of his [place]. (4) Hyperkalemia Is this a current diagnosis for this admission?: Yes Plan: Improved; secondary to Acute Kidney failure. K 5.2-> 5.9-> 4.8 Nephrology is consulted; primary management per their expertise. (5) Hypertension Is this a current diagnosis for this admission?: Yes Plan: Acceptable blood pressures today post dialysis; 118/70. Patient is not requiring antihypertensives. Continue cardiac/dialysis diet. (6) Vertigo Is this a current diagnosis for this admission?: Yes Plan: Resolved. - Time Time Spent with patient: 15-24 minutes Medications reviewed and adjusted accordingly: Yes Anticipated discharge: Home Within: Other - per Nephrology
--- NOTE | 2018-11-29 19:13 | PDOC PROGRESS REPORT ---
Subjective Progress Note for:: 11/29/18 Subjective:: I saw the patient during dialysis this noon time. He has been tolerating dialysis without any complications. The only complaint he has is the burning sensation and dysuria due to the trauma when he has the catheter. His urine is still a little bit of pinkish tinge. He did make about 1500 mL of urine for the last 24 hours. Reason For Visit: ACUTE RENAL FAILURE Physical Exam Vital Signs: Temp Pulse Resp BP Pulse Ox 98.8 F 79 16 118/70 96 11/29/18 15:51 11/29/18 15:51 11/29/18 15:51 11/29/18 15:51 11/29/18 15:51 Intake & Output 11/28/18 11/29/18 11/30/18 06:59 06:59 06:59 Intake Total 1101 1576 500 Output Total 2275 1500 100 Balance -1174 76 400 Weight 87.7 kg 87.7 kg Vitals during dialysis: Blood pressure 134/81, heart rate of 75, blood flow rate of 250 mL/min and dialysate flow rate of 500 mL/min using his right IJ trialysis catheter. Exam: General appearance: PRESENT: no acute distress, cooperative, well-developed, well-nourished Head exam: PRESENT: atraumatic, normocephalic Eye exam: PRESENT: conjunctiva pink, PERRLA. ABSENT: scleral icterus Neck exam: ABSENT: JVD Respiratory exam: PRESENT: Normal breath sounds. ABSENT: crackles, rales, rhonchi, unlabored, wheezes Cardiovascular exam: PRESENT: Regular rate rhythm -+S1, +S2. ABSENT: diastolic murmur, systolic murmur GI/Abdominal exam: PRESENT: normal bowel sounds, soft. ABSENT: guarding, mass, tenderness Extremities exam: ABSENT: No edema Neurological exam: PRESENT: alert, awake, oriented to person, place and time. Skin exam: PRESENT: dry, warm, Results Laboratory Results: 11/29/18 05:03 11/29/18 05:03 11/29/18 11/29/18 11/29/18 05:03 05:03 14:30 WBC 4.8 RBC 3.04 L Hgb 9.5 L Hct 27.2 L MCV 89 MCH 31.2 MCHC 35.0 RDW 13.8 Plt Count 136 L Seg Neutrophils % 52.4 Lymphocytes % 33.3 Monocytes % 13.0 Eosinophils % 1.0 Basophils % 0.3 Absolute Neutrophils 2.5 Absolute Lymphocytes 1.6 Absolute Monocytes 0.6 Absolute Eosinophils 0.0 Absolute Basophils 0.0 Sodium 139.9 Potassium 4.8 Chloride 108 H Carbon Dioxide 25 Anion Gap 7 BUN 33 H Creatinine 4.89 H Est GFR ( Amer) 15 L Est GFR (Non-Af Amer) 12 L Glucose 91 Calcium 8.2 L C-Reactive Protein 38.4 H Urine Color YELLOW Urine Appearance SLIGHTLY-CLOUDY Urine pH 9.0 Ur Specific [place] 1.013 Urine Protein >=500 H Urine Glucose (UA) NEGATIVE Urine Ketones TRACE H Urine Blood LARGE H Urine Nitrite NEGATIVE Ur Leukocyte Esterase NEGATIVE Urine WBC (Auto) 12 Urine RBC (Auto) >182 11/24/18 16:10 Blood Blood Culture - Final NO GROWTH IN 5 DAYS 11/24/18 13:25 Blood Blood Culture - Final NO GROWTH IN 5 DAYS 11/24/18 07:34 Troponin I < 0.012 Impressions: Renal Ultrasound 11/24/18 00:00 IMPRESSION: Both kidneys demonstrate increased echogenicity of the renal parenc hyma. The possibility of chronic medical renal disease cannot be excluded. Head CT 11/24/18 07:56 IMPRESSION: No acute intracranial hemorrhage or acute territorial infarct. Carotid Doppler Study 11/25/18 00:00 IMPRESSION: Soft plaque at the right carotid bifurcation worrisome for flow significant stenosis right proximal internal carotid artery. However, velocity measurements in the proximal right internal carotid artery suggest against flow significant stenosis. The CT angio of the neck with IV contrast is recommended for further evaluation of the right carotid bifurcation. No flow significant stenosis at the left carotid bifurcation. Antegrade pulsatile vertebral artery flow bilaterally. Chest X-Ray 11/25/18 00:00 IMPRESSION: 1. NO ACUTE RADIOGRAPHIC FINDING IN THE CHEST. Neck MRA 11/26/18 00:00 IMPRESSION: NO SIGNIFICANT STENOSIS. Hand X-Ray 11/29/18 08:00 IMPRESSION: 1. No evidence of acute bony abnormality. 2. Scattered subtle marginal erosions most conspicuous at the 3rd and 4th proximal interphalangeal joints on the left with additional MCP and carpal bone subchondral cystic change. Findings can be seen with rheumatologic abnormality such as rheumatoid arthritis. No evidence of significant ulnar deviation. 3. 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 Assessment & Plan - Diagnosis (1) Acute kidney injury Is this a current diagnosis for this admission?: Yes Plan: Secondary to ATN due to hypotension due to high-dose lisinopril. Patient and family agreed for acute renal replacement therapy. We did dialysis today for 2.5 hours, using the patient's right IJ trialysis catheter, with 2 potassium bath, blood flow rate of 250 mL per minute, dialysate flow rate of 500 mL per minute, ultrafiltration none, no heparin and no Procrit. Patient tolerated dialysis well. Based on his BUN and creatinine I think the patient's kidney function is improving. There is a high chance that he may not need dialysis anymore on Sunday but will reevaluate and continue to monitor his kidney function over the weekend. (2) Hyperkalemia Is this a current diagnosis for this admission?: Yes Plan: Resolved with dialysis. (3) Hypotension Is this a current diagnosis for this admission?: Yes Plan: Hold any antihypertensive medications at this time including lisinopril. Blood pressure within acceptable limits without any medications. (4) Gross hematuria Is this a current diagnosis for this admission?: Yes Plan: Secondary to trauma. Improving. (5) Dysuria Is this a current diagnosis for this admission?: Yes Plan: Secondary to trauma. We will give him Phenazopyridine 100 mg Q12h. - Time Time with patient: 15-25 minutes
[2018-11-29] MEDS: ATORVASTATIN CALCIUM 20 MG TABLET PO SCH (21:11)
[2018-11-29] MEDS: ZOLPIDEM TARTRATE 5 MG TABLET PO SCH (21:11)
[2018-11-29] MEDS: PHENAZOPYRIDINE HCL 200 MG TABLET PO SCH (21:13)
[2018-11-30] MEDS: HEPARIN SOD (PORCINE) 5,000 UNIT/ML 1 ML SYRINGE SUBCUT SCH ×3 (05:10→21:22)
[2018-11-30] MEDS: TRAMADOL HCL 50 MG TABLET PO PRN ×2 (05:12→13:59)
[2018-11-30] MEDS: LANSOPRAZOLE 30 MG TAB.RAP.DR PO SCH (05:13)
[2018-11-30 06:57] LABS: HEMATOCRIT 28.3 % (37.9-51.0); HEMOGLOBIN 9.7 g/dL (13.5-17.0); MEAN CORPUSCULAR HEMOGLOBIN 30.6 pg (27.0-33.4); MEAN CORPUSCULAR HGB CONC 34.4 g/dL (32.0-36.0); MEAN CORPUSCULAR VOLUME 89 fl (80-97); PLATELET COUNT 143 10^3/uL (150-450); RED BLOOD COUNT 3.19 10^6/uL (4.35-5.55); RED CELL DISTRIBUTION WIDTH 13.7 % (11.5-14.0); WHITE BLOOD COUNT 4.4 10^3/uL (4.0-10.5)
[2018-11-30 07:59] LABS: ANION GAP 10 (5-19); BLOOD UREA NITROGEN 23 mg/dL (7-20); CALCIUM 8.2 mg/dL (8.4-10.2); CARBON DIOXIDE 27 mmol/L (22-30); CHLORIDE 102 mmol/L (98-107); GLUCOSE 89 mg/dL (75-110); POTASSIUM 4.5 mmol/L (3.6-5.0); SODIUM 139.1 mmol/L (137-145)
[2018-11-30] MEDS: HYDROCODONE/ACETAMINOPHEN 7.5-325 MG TABLET PO PRN ×2 (08:46→16:16)
[2018-11-30] MEDS: PHENAZOPYRIDINE HCL 200 MG TABLET PO SCH ×2 (10:22→21:22)
--- NOTE | 2018-11-30 12:30 | PDOC PROGRESS REPORT ---
Subjective Progress Note for:: 11/30/18 Subjective:: YURI SABILLON is a 63 year old male with a history of HTN, vertigo who presents with one week of worsening lightheadness and dizziness admitted to [facility] for acute kidney failure secondary to ATN (concurrent lisinopril, Lyrica, gabapentin, and NSAID use close parentheses. The patient was seen on morning rounds with his and daughter present. He reports that he is feeling much better today. He reports that his fatigue and mental fogginess is improved. He is also noted a decrease in his lower extremity edema. He does continue to have suprapubic abdominal discomfort with dysuria. He denies fever, chills, chest pain, palpitations, abdominal pain, nausea, vomiting, diarrhea. He has no other questions or concerns. Nursing reports that he continues to have pink tinged urine. Reason For Visit: ACUTE RENAL FAILURE Physical Exam Vital Signs: Temp Pulse Resp BP Pulse Ox 98.2 F 83 16 100/64 96 11/30/18 07:54 11/30/18 07:54 11/30/18 07:54 11/30/18 07:54 11/30/18 07:54 Intake & Output 11/29/18 11/30/18 12/01/18 06:59 06:59 06:59 Intake Total 1576 1996 Output Total 1500 1365 Balance 76 631 Weight 87.7 kg 85.3 kg General appearance: PRESENT: no acute distress, well-developed, well-nourished - Overweight Head exam: PRESENT: atraumatic, normocephalic Eye exam: PRESENT: conjunctiva pink, EOMI, PERRLA. ABSENT: scleral icterus Ear exam: PRESENT: normal external ear exam Mouth exam: PRESENT: moist, tongue midline Neck exam: ABSENT: carotid bruit, JVD, lymphadenopathy, thyromegaly Respiratory exam: PRESENT: clear to auscultation cricket, symmetrical, unlabored. ABSENT: rales, rhonchi, wheezes Cardiovascular exam: PRESENT: RRR, +S1, +S2. ABSENT: diastolic murmur, rubs, systolic murmur Pulses: PRESENT: normal dorsalis pedis pul Vascular exam: PRESENT: normal capillary refill GI/Abdominal exam: PRESENT: normal bowel sounds, soft. ABSENT: distended, guarding, mass, organolmegaly, rebound, tenderness Rectal exam: PRESENT: deferred Extremities exam: PRESENT: full ROM, pedal edema - +1 BLE. ABSENT: calf tenderness, clubbing Neurological exam: PRESENT: alert, awake, oriented to person, oriented to place, oriented to time, oriented to situation, CN II-XII grossly intact. ABSENT: motor sensory deficit Psychiatric exam: PRESENT: appropriate affect, normal mood. ABSENT: homicidal ideation, suicidal ideation Skin exam: PRESENT: dry, intact, warm. ABSENT: cyanosis, rash Results Laboratory Results: 11/30/18 06:50 11/30/18 06:50 11/29/18 11/30/18 11/30/18 14:30 06:50 06:50 WBC 4.4 RBC 3.19 L Hgb 9.7 L Hct 28.3 L MCV 89 MCH 30.6 MCHC 34.4 RDW 13.7 Plt Count 143 L Sodium 139.1 Potassium 4.5 Chloride 102 Carbon Dioxide 27 Anion Gap 10 BUN 23 H Creatinine 3.63 H Est GFR ( Amer) 20 L Est GFR (Non-Af Amer) 17 L Glucose 89 Calcium 8.2 L Urine Color YELLOW Urine Appearance SLIGHTLY-CLOUDY Urine pH 9.0 Ur Specific [place] 1.013 Urine Protein >=500 H Urine Glucose (UA) NEGATIVE Urine Ketones TRACE H Urine Blood LARGE H Urine Nitrite NEGATIVE Ur Leukocyte Esterase NEGATIVE Urine WBC (Auto) 12 Urine RBC (Auto) >182 11/24/18 16:10 Blood Blood Culture - Final NO GROWTH IN 5 DAYS 11/24/18 13:25 Blood Blood Culture - Final NO GROWTH IN 5 DAYS 11/24/18 07:34 Troponin I < 0.012 Impressions: Renal Ultrasound 11/24/18 00:00 IMPRESSION: Both kidneys demonstrate increased echogenicity of the renal parenchyma. The possibility of chronic medical renal disease cannot be excluded. Head CT 11/24/18 07:56 IMPRESSION: No acute intracranial hemorrhage or acute territorial infarct. Carotid Doppler Study 11/25/18 00:00 IMPRESSION: Soft plaque at the right carotid bifurcation worrisome for flow significant stenosis right proximal internal carotid artery. However, velocity measurements in the proximal right internal carotid artery suggest against flow significant stenosis. The CT angio of the neck with IV contrast is recommended for further evaluation of the right carotid bifurcation. No flow significant stenosis at the left carotid bifurcation. Antegrade pulsatile vertebral artery flow bilaterally. Chest X-Ray 11/25/18 00:00 IMPRESSION: 1. NO ACUTE RADIOGRAPHIC FINDING IN THE CHEST. Neck MRA 11/26/18 00:00 IMPRESSION: NO SIGNIFICANT STENOSIS. Hand X-Ray 11/29/18 08:00 IMPRESSION: 1. No evidence of acute bony abnormality. 2. Scattered subtle marginal erosions most conspicuous at the 3rd and 4th proximal interphalangeal joints on the left with additional MCP and carpal bone subchondral cystic change. Findings can be seen with rheumatologic abnormality such as rheumatoid arthritis. No evidence of significant ulnar deviation. 3. 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 Assessment & Plan - Diagnosis (1) Acute kidney injury Is this a current diagnosis for this admission?: Yes Plan: Improved; Cr 5.67-> 7.71-> 3.63, BUN 38-> 53-> 23 Previous Cr was WNL. Symptoms of lightheadness and weakeness started around time of Lisinopril. Most likely etiology is medication included (also taking Neurontin and Lyrica). Renal ultrasound ruled out obstruction Continue holding lisinopril, neurontin, lyrica Avoid nephrotoxin including NSAIDs Renal consulted (Dr. Estevez), appreciate recs. Possible hemodialysis Sunday. Primary management per nephrology. (2) Chronic narcotic use Is this a current diagnosis for this admission?: Yes Plan: Continue the patient's home medication regiment of [place] 7.53 times daily and tramadol 100 mg 3 times daily as needed. Outpatient follow-up with primary care provider. Consider outpatient pain manag ement consultation. Patient reports strong history of rheumatoid arthritis; rheumatoid factor is ne gative. ESR and CRP are slightly elevated; may be related to patient's recent dialysis catheter placement. May also consider outpatient rheumatology follow- up. (3) Confusion Is this a current diagnosis for this admission?: Yes Plan: Resolved. Likely Uremia related to Acute Kidney Failure. Head CT no acute findings. Monitor sedating medications closely; may require dose reduction of his [place]. (4) Hyperkalemia Is this a current diagnosis for this admission?: Yes Plan: Resolved; secondary to Acute Kidney failure. K 5.2-> 5.9-> 4.8-> 4.5 Nephrology is consulted; primary management per their expertise. (5) Hypertension Is this a current diagnosis for this admission?: Yes Plan: Acceptable blood pressures today post dialysis; 100/64 Patient is not requiring antihypertensives. Continue cardiac/dialysis diet. (6) Vertigo Is this a current diagnosis for this admission?: Yes Plan: Resolved. (7) Dysuria Is this a current diagnosis for this admission?: Yes Plan: Secondary to traumatic Bryan removal. UA was negative for UTI. Low-dose Pyridium secondary to NGA. - Time Time Spent with patient: 15-24 minutes Medications reviewed and adjusted accordingly: Yes Anticipated discharge: Home
[2018-11-30] MEDS ORDERED: TAMSULOSIN HCL 0.4 MG CAP.SR.24H PO ONE ×2 (15:22→16:30)
[2018-11-30] MEDS: ACETAMINOPHEN 325 MG TABLET PO PRN (18:55)
[2018-11-30] MEDS: ZOLPIDEM TARTRATE 5 MG TABLET PO SCH (21:22)
[2018-11-30] MEDS: ATORVASTATIN CALCIUM 20 MG TABLET PO SCH (21:22)
[2018-12-01] MEDS: LANSOPRAZOLE 30 MG TAB.RAP.DR PO SCH (05:02)
[2018-12-01] MEDS: TRAMADOL HCL 50 MG TABLET PO PRN (05:02)
[2018-12-01] MEDS: HEPARIN SOD (PORCINE) 5,000 UNIT/ML 1 ML SYRINGE SUBCUT SCH ×3 (05:08→21:25)
[2018-12-01 05:22] LABS: HEMATOCRIT 28.8 % (37.9-51.0); MEAN CORPUSCULAR HGB CONC 34.6 g/dL (32.0-36.0); MEAN CORPUSCULAR VOLUME 90 fl (80-97); PLATELET COUNT 151 10^3/uL (150-450); RED BLOOD COUNT 3.22 10^6/uL (4.35-5.55); RED CELL DISTRIBUTION WIDTH 13.4 % (11.5-14.0); WHITE BLOOD COUNT 4.5 10^3/uL (4.0-10.5)
[2018-12-01 05:42] LABS: ANION GAP 11 (5-19); BLOOD UREA NITROGEN 24 mg/dL (7-20); CALCIUM 8.5 mg/dL (8.4-10.2); CARBON DIOXIDE 26 mmol/L (22-30); CHLORIDE 101 mmol/L (98-107); GLUCOSE 93 mg/dL (75-110); POTASSIUM 4.3 mmol/L (3.6-5.0)
[2018-12-01] MEDS: PHENAZOPYRIDINE HCL 200 MG TABLET PO SCH ×2 (10:20→23:19)
[2018-12-01] MEDS: HYDROCODONE/ACETAMINOPHEN 7.5-325 MG TABLET PO PRN ×3 (10:20→21:30)
[2018-12-01] MEDS ORDERED: LIDOCAINE 2% URO-JET 5 ML KIT MM ONE (12:00)
--- NOTE | 2018-12-01 14:31 | PDOC PROGRESS REPORT ---
Subjective Progress Note for:: 12/01/18 Subjective:: YURI SABILLON is a 63 year old male with a history of HTN, vertigo who presents with one week of worsening lightheadness and dizziness admitted for acute kidney failure secondary to ATN (concurrent lisinopril, Lyrica, gabapentin, and NSAID use). The patient was seen on morning rounds with his and daughters present. He reports that he is feeling well today. His only complaint is intermittent suprapubic abdominal discomfort with dysuria during attempts to void. He denies fever, chills, chest pain, palpitations, dyspnea, orthopnea, cough, abdominal pain, nausea, vomiting, diarrhea. He has no other questions or concerns. Nursing has no concerns. Reason For Visit: ACUTE RENAL FAILURE Physical Exam Vital Signs: Temp Pulse Resp BP Pulse Ox 98.6 F 86 16 105/53 L 97 12/01/18 12:00 12/01/18 12:00 12/01/18 12:00 12/01/18 12:00 12/01/18 12:00 Intake & Output 11/30/18 12/01/18 12/02/18 06:59 06:59 06:59 Intake Total 1995 1714 Output Total 1365 1350 Balance 631 364 Weight 85.3 kg 87.2 kg General appearance: PRESENT: no acute distress, obese, well-developed, well- nourished Head exam: PRESENT: atraumatic, normocephalic Eye exam: PRESENT: conjunctiva pink, EOMI, PERRLA. ABSENT: scleral icterus Ear exam: PRESENT: normal external ear exam Mouth exam: PRESENT: moist, tongue midline Neck exam: ABSENT: carotid bruit, JVD, lymphadenopathy, thyromegaly Respiratory exam: PRESENT: clear to auscultation cricket, symmetrical, unlabored. ABSENT: rales, rhonchi, wheezes Cardiovascular exam: PRESENT: RRR. ABSENT: diastolic murmur, rubs, systolic murmur Pulses: PRESENT: normal dorsalis pedis pul Vascular exam: PRESENT: normal capillary refill GI/Abdominal exam: PRESENT: normal bowel sounds, soft. ABSENT: distended, guarding, mass, organolmegaly, rebound, tenderness Rectal exam: PRESENT: deferred Extremities exam: PRESENT: full ROM, +1 edema. ABSENT: calf tenderness, clubbing, pedal edema Neurological exam: PRESENT: alert, awake, oriented to person, oriented to place, oriented to time, oriented to situation, CN II-XII grossly intact. ABSENT: motor sensory deficit Psychiatric exam: PRESENT: appropriate affect, normal mood. ABSENT: homicidal ideation, suicidal ideation Skin exam: PRESENT: dry, intact, warm. ABSENT: cyanosis, rash Results Laboratory Results: 12/01/18 05:07 12/01/18 05:07 12/01/18 12/01/18 05:07 05:07 WBC 4.5 RBC 3.22 L Hgb 10.0 L Hct 28.8 L MCV 90 MCH 31.0 MCHC 34.6 RDW 13.4 Plt Count 151 Sodium 138.0 Potassium 4.3 Chloride 101 Carbon Dioxide 26 Anion Gap 11 BUN 24 H Creatinine 3.37 H Est GFR ( Amer) 22 L Est GFR (Non-Af Amer) 18 L Glucose 93 Calcium 8.5 11/24/18 07:34 Troponin I < 0.012 Impressions: Renal Ultrasound 11/24/18 00:00 IMPRESSION: Both kidneys demonstrate increased echogenicity of the renal parenchyma. The possibility of chronic medical renal disease cannot be excluded. Head CT 11/24/18 07:56 IMPRESSION: No acute intracranial hemorrhage or acute territorial infarct. Carotid Doppler Study 11/25/18 00:00 IMPRESSION: Soft plaque at the right carotid bifurcation worrisome for flow significant stenosis right proximal internal carotid artery. However, velocity measurements in the proximal right internal carotid artery suggest against flow significant stenosis. The CT angio of the neck with IV contrast is recommended for further evaluation of the right carotid bifurcation. No flow significant stenosis at the left carotid bifurcation. Antegrade pulsatile vertebral artery flow bilaterally. Chest X-Ray 11/25/18 00:00 IMPRESSION: 1. NO ACUTE RADIOGRAPHIC FINDING IN THE CHEST. Neck MRA 11/26/18 00:00 IMPRESSION: NO SIGNIFICANT STENOSIS. Hand X-Ray 11/29/18 08:00 IMPRESSION: 1. No evidence of acute bony abnormality. 2. Scattered subtle marginal erosions most conspicuous at the 3rd and 4th proximal interphalangeal joints on the left with additional MCP and carpal bone subchondral cystic change. Findings can be seen with rheumatologic abnormality such as rheumatoid arthritis. No evidence of significant ulnar deviation. 3. 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 Assessment & Plan - Diagnosis (1) Acute kidney injury Is this a current diagnosis for this admission?: Yes Plan: Improved; Cr 5.67-> 7.71-> 3.63-> 3.37 Previous Cr was WNL. Symptoms of lightheadness and weakeness started around time of Lisinopril. Most likely etiology is medication included (also taking Neurontin and Lyrica). Renal ultrasound ruled out obstruction Continue holding lisinopril, neurontin, lyrica Avoid nephrotoxin including NSAIDs Renal consulted (Dr. Estevez), appreciate recs. Possible hemodialysis Sunday. Primary management per nephrology. (2) Chronic narcotic use Is this a current diagnosis for this admission?: Yes Plan: Continue the patient's home medication regiment of [place] 7.53 times daily and tramadol 100 mg 3 times daily as needed. Outpatient follow-up with primary care provider. Consider outpatient pain management consultation. Patient reports strong history of rheumatoid arthritis; rheumatoid factor is negative. ESR and CRP are slightly elevated; may be related to patient's recent dialysis catheter placement. May also consider outpatient rheumatology follow- up. (3) Confusion Is this a current diagnosis for this admission?: Yes Plan: Resolved. Likely Uremia related to Acute Kidney Failure. Head CT no acute findings. Monitor sedating medications closely; may require dose reduction of his [place]. (4) Hyperkalemia Is this a current diagnosis for this admission?: Yes Plan: Resolved; secondary to Acute Kidney failure. K 5.2-> 5.9-> 4.8-> 4.5-> 4.3 Nephrology is consulted; primary management per their expertise. (5) Hypertension Is this a current diagnosis for this admission?: Yes Plan: Acceptable blood pressures today post dialysis; 105/53 Patient is not requiring antihypertensives. Continue cardiac/dialysis diet. (6) Vertigo Is this a current diagnosis for this admission?: Yes Plan: Resolved. (7) Dysuria Is this a current diagnosis for this admission?: Yes Plan: Secondary to traumatic Bryan removal. UA was negative for UTI. Low-dose Pyridium secondary to NGA. Trial of Urojet today. Increased [place] to every 4 hours as needed. Continue home dose Toradol. - Time Time Spent with patient: 25-34 minutes Medications reviewed and adjusted accordingly: Yes Anticipated discharge: Home
[2018-12-01] MEDS: TAMSULOSIN HCL 0.4 MG CAP.SR.24H PO SCH (17:43)
[2018-12-01] MEDS: ZOLPIDEM TARTRATE 5 MG TABLET PO SCH (21:29)
[2018-12-01] MEDS: ATORVASTATIN CALCIUM 20 MG TABLET PO SCH (21:30)
[2018-12-01] MEDS: AMITRIPTYLINE HCL 10 MG TABLET PO SCH (21:30)
[2018-12-02] MEDS: HYDROCODONE/ACETAMINOPHEN 7.5-325 MG TABLET PO PRN ×5 (04:01→22:15)
[2018-12-02] MEDS: LANSOPRAZOLE 30 MG TAB.RAP.DR PO SCH (05:31)
[2018-12-02] MEDS: ACETAMINOPHEN 325 MG TABLET PO PRN ×2 (05:31→20:16)
[2018-12-02] MEDS: HEPARIN SOD (PORCINE) 5,000 UNIT/ML 1 ML SYRINGE SUBCUT SCH ×3 (05:32→22:13)
[2018-12-02 06:06] LABS: ANION GAP 10 (5-19); BLOOD UREA NITROGEN 20 mg/dL (7-20); CALCIUM 8.2 mg/dL (8.4-10.2); CARBON DIOXIDE 25 mmol/L (22-30); CHLORIDE 103 mmol/L (98-107); GLUCOSE 97 mg/dL (75-110); POTASSIUM 4.5 mmol/L (3.6-5.0); SODIUM 137.7 mmol/L (137-145)
[2018-12-02] MEDS: PHENAZOPYRIDINE HCL 200 MG TABLET PO SCH ×2 (09:13→23:43)
--- NOTE | 2018-12-02 11:38 | PDOC PROGRESS REPORT ---
Subjective Progress Note for:: 12/02/18 Reason For Visit: Patient seen today. I did review his previous notes and discussed with Dr. Estevez as patient had been initiated on hemodialysis for [place] I. He is generally feeling better each day by day. However he is appetite is not back to baseline. No nausea or vomiting. He is drinking 60-70 cc of fluid on a daily basis. He still has some mild difficulty in urination and has got some pain when he urinates he states. He was begun on Pyridium as well as Flomax last week. No complaints of an abdominal pains. No complaints of any fever or chills. Labs and medications were reviewed with the patient that shows improving creatinine of 2.6 from a peak of 7+. His last dialysis was on Sunday. Physical Exam Vital Signs: Temp Pulse Resp BP Pulse Ox 98.7 F 80 14 108/61 98 12/02/18 07:28 12/02/18 07:28 12/02/18 07:28 12/02/18 07:28 12/02/18 07:28 Intake & Output 12/01/18 12/02/18 12/03/18 06:59 06:59 06:59 Intake Total 1714 1228 Output Total 1350 800 Balance 364 428 Weight 87.2 kg 82.6 kg General appearance: PRESENT: no acute distress Respiratory exam: PRESENT: clear to auscultation cricket. ABSENT: crackles Cardiovascular exam: PRESENT: +S1, +S2 GI/Abdominal exam: PRESENT: normal bowel sounds, soft. ABSENT: organomegaly, tenderness Extremities exam: ABSENT: pedal edema Neurological exam: PRESENT: alert, awake, oriented to person, oriented to place, oriented to time Skin exam: ABSENT: cyanosis, dry, erythema, mottled, rash Results Laboratory Results: 12/01/18 05:07 12/02/18 05:21 12/02/18 05:21 Sodium 137.7 Potassium 4.5 Chloride 103 Carbon Dioxide 25 Anion Gap 10 BUN 20 Creatinine 2.60 H Est GFR ( Amer) 30 L Est GFR (Non-Af Amer) 25 L Glucose 97 Calcium 8.2 L 11/24/18 07:34 Troponin I < 0.012 Impressions: Renal Ultrasound 11/24/18 00:00 IMPRESSION: Both kidneys demonstrate increased echogenicity of the renal parenchyma. The possibility of chronic medical renal disease cannot be excluded. Head CT 11/24/18 07:56 IMPRESSION: No acute intracranial hemorrhage or acute territorial infarct. Carotid Doppler Study 11/25/18 00:00 IMPRESSION: Soft plaque at the right carotid bifurcation worrisome for flow significant stenosis right proximal internal carotid artery. However, velocity measurements in the proximal right internal carotid artery suggest against flow significant stenosis. The CT angio of the neck with IV contrast is recommended for further evaluation of the right carotid bifurcation. No flow significant stenosis at the left carotid bifurcation. Antegrade pulsatile vertebral artery flow bilaterally. Chest X-Ray 11/25/18 00:00 IMPRESSION: 1. NO ACUTE RADIOGRAPHIC FINDING IN THE CHEST. Neck MRA 11/26/18 00:00 IMPRESSION: NO SIGNIFICANT STENOSIS. Hand X-Ray 11/29/18 08:00 IMPRESSION: 1. No evidence of acute bony abnormality. 2. Scattered subtle marginal erosions most conspicuous at the 3rd and 4th proximal interphalangeal joints on the left with additional MCP and carpal bone subchondral cystic change. Findings can be seen with rheumatologic abnormality such as rheumatoid arthritis. No evidence of significant ulnar deviation. 3. 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 Assessment & Plan - Diagnosis (1) Acute kidney injury Is this a current diagnosis for this admission?: Yes Plan: Patient is doing well today. He is currently nonoliguric and making good amounts of urine.His labs and medications are reviewed with him. His creatinine is now down to 2.6 from a peak of 7+ which she was initiated on hemodialysis. He does not show any features that indicate he needs to be dialyzed again today.Advised to continue good intake of fluids as he is doing now. He has got some difficulty in urination after he had some trauma with a Bryan catheter for which she was begun on Pyridium as well as Flomax last week. He still continues to have some of that still persisting. We will check another UA today.Patient blood pressure still on the low normal side.Patient is currently off all his antihypertensives including the lisinopril. I would not restart him on any antihypertensives but I would be glad to see him 2 weeks post discharge with a chemistry and at that point I can reevaluate his renal functions as well as his blood pressure need to decide at that point whether he needs to be started back on any antihypertensives. (2) Hyperkalemia Is this a current diagnosis for this admission?: Yes Plan: Resolved. Monitor (3) Hypotension Is this a current diagnosis for this admission?: Yes Plan: Impression systolic. Stay off any antihypertensives especially ODETTE inhibitors that he was on the time of admission. Monitor for couple of weeks post discharge for reinitiation of any antihypertensives.
[2018-12-02 14:23] LABS: APPEARANCE,URINE CLEAR; BILIRUBIN,URINE NEGATIVE (NEGATIVE); COLOR,URINE AMBER; GLUCOSE, URINE NEGATIVE (NEGATIVE); KETONES,URINE NEGATIVE (NEGATIVE); LEUKOCYTE ESTERASE,URINE NEGATIVE (NEGATIVE); NITRITE,URINE POSITIVE (NEGATIVE); PROTEIN,URINE 100 mg/dL (NEGATIVE); URINE SPECIFIC GRAVITY 1.013
--- NOTE | 2018-12-02 16:26 | PDOC PROGRESS REPORT ---
Subjective Progress Note for:: 12/02/18 Subjective:: YURI SABILLON is a 63 year old male with a history of HTN, vertigo who presents with one week of worsening lightheadness and dizziness admitted for acute kidney failure secondary to ATN (concurrent lisinopril, Lyrica, gabapentin, and NSAID use). The patient was seen on morning rounds. He was found resting in bed comfortably on room air. He states that he is feeling well today; though slightly fatigued and continues to have dysuria. He denies fever, chills, chest pain, palpitations, dyspnea, orthopnea, cough, abdominal pain, nausea, vomiting, diarrhea. He has no other questions or concerns. Nursing has no concerns. Reason For Visit: ACUTE RENAL FAILURE Physical Exam Vital Signs: Temp Pulse Resp BP Pulse Ox 98.6 F 70 14 117/65 98 12/02/18 11:21 12/02/18 14:00 12/02/18 11:21 12/02/18 11:21 12/02/18 11:21 Intake & Output 12/01/18 12/02/18 12/03/18 06:59 06:59 06:59 Intake Total 1714 1228 Output Total 1350 800 Balance 364 428 Weight 87.2 kg 82.6 kg General appearance: PRESENT: no acute distress, well-developed, well-nourished - Overweight Head exam: PRESENT: atraumatic, normocephalic Eye exam: PRESENT: conjunctiva pink, EOMI, PERRLA. ABSENT: scleral icterus Ear exam: PRESENT: normal external ear exam Mouth exam: PRESENT: moist, tongue midline Neck exam: ABSENT: carotid bruit, JVD, lymphadenopathy, thyromegaly Respiratory exam: PRESENT: clear to auscultation cricket, symmetrical, unlabored. ABSENT: rales, rhonchi, wheezes Cardiovascular exam: PRESENT: RRR. ABSENT: diastolic murmur, rubs, systolic m urmur Pulses: PRESENT: normal dorsalis pedis pul Vascular exam: PRESENT: normal capillary refill GI/Abdominal exam: PRESENT: normal bowel sounds, soft. ABSENT: distended, guarding, mass, organolmegaly, rebound, tenderness Rectal exam: PRESENT: deferred Extremities exam: PRESENT: full ROM. ABSENT: calf tenderness, clubbing, pedal edema Neurological exam: PRESENT: alert, awake, oriented to person, oriented to place, oriented to time, oriented to situation, CN II-XII grossly intact. ABSENT: motor sensory deficit Psychiatric exam: PRESENT: appropriate affect, normal mood. ABSENT: homicidal ideation, suicidal ideation Skin exam: PRESENT: dry, intact, warm. ABSENT: cyanosis, rash Results Laboratory Results: 12/01/18 05:07 12/02/18 05:21 12/02/18 12/02/18 05:21 14:05 Sodium 137.7 Potassium 4.5 Chloride 103 Carbon Dioxide 25 Anion Gap 10 BUN 20 Creatinine 2.60 H Est GFR ( Amer) 30 L Est GFR (Non-Af Amer) 25 L Glucose 97 Calcium 8.2 L Urine Color KOKO Urine Appearance CLEAR Urine pH 7.0 Ur Specific [place] 1.013 Urine Protein 100 H Urine Glucose (UA) NEGATIVE Urine Ketones NEGATIVE Urine Blood LARGE H Urine Nitrite POSITIVE H Ur Leukocyte Esterase NEGATIVE Urine WBC (Auto) 5 Urine RBC (Auto) >182 11/24/18 07:34 Troponin I < 0.012 Impressions: Renal Ultrasound 11/24/18 00:00 IMPRESSION: Both kidneys demonstrate increased echogenicity of the renal parenchyma. The possibility of chronic medical renal disease cannot be excluded. Head CT 11/24/18 07:56 IMPRESSION: No acute intracranial hemorrhage or acute territorial infarct. Carotid Doppler Study 11/25/18 00:00 IMPRESSION: Soft plaque at the right carotid bifurcation worrisome for flow significant stenosis right proximal internal carotid artery. However, velocity measurements in the proximal right internal carotid artery suggest against flow significant stenosis. The CT angio of the neck with IV contrast is recommended for further evaluation of the right carotid bifurcation. No flow significant stenosis at the left carotid bifurcation. Antegrade pulsatile vertebral artery flow bilaterally. Chest X-Ray 11/25/18 00:00 IMPRESSION: 1. NO ACUTE RADIOGRAPHIC FINDING IN THE CHEST. Neck MRA 11/26/18 00:00 IMPRESSION: NO SIGNIFICANT STENOSIS. Hand X-Ray 11/29/18 08:00 IMPRESSION: 1. No evidence of acute bony abnormality. 2. Scattered subtle marginal erosions most conspicuous at the 3rd and 4th proximal interphalangeal joints on the left with additional MCP and carpal bone subchondral cystic change. Findings can be seen with rheumatologic abnormality such as rheumatoid arthritis. No evidence of significant ulnar deviation. 3. 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 Assessment & Plan - Diagnosis (1) Acute kidney injury Is this a current diagnosis for this admission?: Yes Plan: Improved; Cr 5.67-> 7.71-> 3.63-> 3.37-> 2.60 Previous Cr was WNL. Symptoms of lightheadness and weakeness started around time of Lisinopril. Most likely etiology is medication included (also taking Neurontin and Lyrica). Renal ultrasound ruled out obstruction Continue holding lisinopril, neurontin, lyrica Avoid nephrotoxin including NSAIDs Renal consulted (Dr. Estevez), appreciate recs. Spoke with Dr. Rivas today; does not plan for dialysis today. Would like to keep the patient overnight and assess creatinine again tomorrow. Likely to discharge tomorrow. Dr. Rivas would like the patient to follow-up with their clinic in 2 weeks. (2) Chronic narcotic use Is this a current diagnosis for this admission?: Yes Plan: Continue the patient's home medication regiment of [place] 7.53 times daily and t ramadol 100 mg 3 times daily as needed. Outpatient follow-up with primary care provider. Consider outpatient pain management consultation. Patient reports strong history of rheumatoid arthritis; rheumatoid factor is negative. ESR and CRP are slightly elevated; may be related to patient's recent dialysis catheter placement. May also consider outpatient rheumatology follow- up. (3) Confusion Is this a current diagnosis for this admission?: Yes Plan: Resolved. Likely Uremia related to Acute Kidney Failure. Head CT no acute findings. Monitor sedating medications closely; may require dose reduction of his [place]. (4) Hyperkalemia Is this a current diagnosis for this admission?: Yes Plan: Resolved; secondary to Acute Kidney failure. K 5.2-> 5.9-> 4.5 Nephrology is consulted; primary management per their expertise. (5) Hypertension Is this a current diagnosis for this admission?: Yes Plan: Acceptable blood pressures today; 117/65 Patient is not requiring antihypertensives. Continue cardiac/dialysis diet. Per Dr. Rivas's notes; would prefer that the patient not be placed on anti hypertensive medications. Will address blood pressure needs at follow-up appointment in 2 weeks. Especially avoid ODETTE inhibitors. (6) Vertigo Is this a current diagnosis for this admission?: Yes Plan: Resolved. (7) Dysuria Is this a current diagnosis for this admission?: Yes Plan: Secondary to traumatic Bryan removal and has now developed UTI UA was negative for UTI. Repeat urinalysis is (+) for UTI w/ large blood and Nitrite Low-dose Pyridium secondary to NGA. Trial of Urojet yesterday; minimal relief. Start Keflex for UTI. Increased [place] to every 4 hours as needed. Continue home dose Toradol. (8) UTI (urinary tract infection) Qualifiers: Urinary tract infection type: acute cystitis Hematuria presence: with hematuria Qualified Code(s): N30.01 - Acute cystitis with hematuria Is this a current diagnosis for this admission?: Yes Plan: Urinalysis today is positive for UTI. Urine Culture pending. Will start Keflex. Encourage p.o. fluids. Pyridium for pain. - Time Time Spent with patient: 15-24 minutes Medications reviewed and adjusted accordingly: Yes Anticipated discharge: Home Within: within 24 hours
[2018-12-02] MEDS: TAMSULOSIN HCL 0.4 MG CAP.SR.24H PO SCH (18:14)
[2018-12-02] MEDS: TRAMADOL HCL 50 MG TABLET PO PRN (20:16)
[2018-12-02] MEDS: ZOLPIDEM TARTRATE 5 MG TABLET PO SCH (22:09)
[2018-12-02] MEDS: CEPHALEXIN 500 MG CAPSULE PO SCH (22:13)
[2018-12-02] MEDS: AMITRIPTYLINE HCL 10 MG TABLET PO SCH (22:13)
[2018-12-02] MEDS: ATORVASTATIN CALCIUM 20 MG TABLET PO SCH (22:14)
[2018-12-03] MEDS: LANSOPRAZOLE 30 MG TAB.RAP.DR PO SCH (06:01)
[2018-12-03] MEDS: HEPARIN SOD (PORCINE) 5,000 UNIT/ML 1 ML SYRINGE SUBCUT SCH ×3 (06:03→21:36)
[2018-12-03 08:04] LABS: ANION GAP 7 (5-19); BLOOD UREA NITROGEN 15 mg/dL (7-20); CALCIUM 7.4 mg/dL (8.4-10.2); CARBON DIOXIDE 25 mmol/L (22-30); CHLORIDE 107 mmol/L (98-107); GLUCOSE 82 mg/dL (75-110); SODIUM 138.5 mmol/L (137-145)
[2018-12-03] MEDS: TRAMADOL HCL 50 MG TABLET PO PRN ×2 (08:48→23:17)
[2018-12-03] MEDS: CEPHALEXIN 500 MG CAPSULE PO SCH (09:29)
[2018-12-03] MEDS: PHENAZOPYRIDINE HCL 200 MG TABLET PO SCH ×2 (09:30→21:40)
[2018-12-03] MEDS: HYDROCODONE/ACETAMINOPHEN 7.5-325 MG TABLET PO PRN ×3 (11:37→20:07)
[2018-12-03 12:30] LABS: HEMOGLOBIN 10.1 g/dL (13.5-17.0); MEAN CORPUSCULAR HEMOGLOBIN 31.1 pg (27.0-33.4); MEAN CORPUSCULAR HGB CONC 34.7 g/dL (32.0-36.0); MEAN CORPUSCULAR VOLUME 90 fl (80-97); PLATELET COUNT 175 10^3/uL (150-450); RED BLOOD COUNT 3.23 10^6/uL (4.35-5.55); RED CELL DISTRIBUTION WIDTH 13.6 % (11.5-14.0); WHITE BLOOD COUNT 4.3 10^3/uL (4.0-10.5)
--- NOTE | 2018-12-03 15:17 | RADIOLOGY REPORT (SQ) ---
EXAM DESCRIPTION: CT ABD/PELVIS NO ORAL OR IV COMPLETED DATE/TIME: 12/03/2018 2:55 pm REASON FOR STUDY: lower abdominal pain R69 ILLNESS, UNSPECIFIED COMPARISON: None. TECHNIQUE: CT scan of the abdomen and pelvis performed without intravenous or oral contrast. Images reviewed with lung, soft tissue, and bone windows. Reconstructed coronal and sagittal MPR images revi ewed. All images stored on PACS. All CT scanners at this facility use dose modulation, iterative reconstruction, and/or weight based d osing when appropriate to reduce radiation dose to as low as reasonably achievable (ALARA). [facility]: Dose Right [facility]: CareDose [facility]: Dose Right [facility]: Teradose 4D [facility]: Sxbbm RADIATION DOSE: CT Rad equipment meets quality standard of care and radiation dose reduction techniq ues were employed. CTDIvol: 5.5 mGy. DLP: 301 mGy-cm.mGy. LIMITATIONS: None. FINDINGS: LOWER CHEST: No significant findings. No nodules or infiltrates. NON-CONTRASTED LIVER, SPLEEN, ADRENALS: Evaluation limited by lack of IV contrast. No identified sign ificant masses. PANCREAS: No masses. No peripancreatic inflammatory changes. GALLBLADDER: No identified stones by CT criteria. No inflammatory changes to suggest cholecystitis. RIGHT KIDNEY AND URETER: No suspicious masses. Assessment limited by lack of IV contrast. No signif icant calcifications. No hydronephrosis or hydroureter. LEFT KIDNEY AND URETER: No suspicious masses. Assessment limited by lack of IV contrast. No signifi cant calcifications. No hydronephrosis or hydroureter. AORTA AND RETROPERITONEUM: No aneurysm. No retroperitoneal masses or adenopathy. BOWEL AND PERITONEAL CAVITY: No obvious masses or inflammatory changes. No free fluid. APPENDIX: Normal. PELVIS, BLADDER, AND ABDOMINAL WALL:No abnormal masses. No free fluid. There is bladder wall thicken ing and fat stranding in the low pelvis. BONES: No significant findings. OTHER: No other significant finding. IMPRESSION: Bladder wall thickening and fat stranding, findings consistent with nonspecific infectio us or inflammatory cystitis. Correlate with urinalysis. No evidence of urinary tract calculus or ot her findings to explain flank pain. COMMENT: Quality ID # [id number]: Final reports with documentation of one or more dose reduction techniques (e.g., Automated exposure control, adjustment of the mA and/or kV according to patient size, use of iterative reconstruction technique) TECHNICAL DOCUMENTATION: JOB ID: [id number] [employer]- All Rights Reserved Reading location - IP/workstation name: [email or web address]
[2018-12-03] MEDS ORDERED: LEVOFLOXACIN 750 MG/D5W RTU 750 MG/150 ML RTUPB IV SCH (17:15)
[2018-12-03] MEDS: TAMSULOSIN HCL 0.4 MG CAP.SR.24H PO SCH (17:42)
--- NOTE | 2018-12-03 20:15 | PDOC PROGRESS REPORT ---
Subjective Progress Note for:: 12/03/18 Subjective:: YURI SABILLON is a 63 year old male with a history of HTN, vertigo who presents with one week of worsening lightheadness and dizziness admitted for acute kidney failure secondary to ATN (concurrent lisinopril, Lyrica, gabapentin, and NSAID use). The patient was seen this morning on rounds. He complains of lower abdominal 'pressure,' exacerbated whenever he urinates. The patient states he is very uncomfortable. Upon assessment, the patient's abdomen is slightly distended. His lower abdomen is TTP. +BS. CT Abd/Pelvis obtained, reveals bladder wall thickening and stranding, consistent with cystitis. Plan to d/c PO keflex and initiate IV levaquin for a complicated UTI. Awaiting urine C&S. Reason For Visit: ACUTE RENAL FAILURE Physical Exam Vital Signs: Temp Pulse Resp BP Pulse Ox 98.6 F 76 16 109/73 95 12/02/18 23:38 12/02/18 23:38 12/02/18 20:00 12/02/18 23:38 12/02/18 23:38 Intake & Output 12/01/18 12/02/18 12/03/18 06:59 06:59 06:59 Intake Total 1714 1228 1307 Output Total 4312 782 5584 Balance 364 428 182 Weight 87.2 kg 82.6 kg 82.4 kg General appearance: PRESENT: no acute distress, well-developed, well-nourished Head exam: PRESENT: atraumatic Eye exam: PRESENT: conjunctiva pink, PERRLA Mouth exam: PRESENT: moist, tongue midline Neck exam: PRESENT: full ROM Respiratory exam: PRESENT: clear to auscultation cricket, symmetrical, unlabored Cardiovascular exam: PRESENT: +S1, +S2 Pulses: PRESENT: normal radial pulses, normal dorsalis pedis pul GI/Abdominal exam: PRESENT: distended - MILDLY DISTENDED, normal bowel sounds, soft, tenderness Rectal exam: PRESENT: deferred Gentrourinary exam: PRESENT: other - PATIENT ABLE TO VOID USING URINAL. Extremities exam: PRESENT: full ROM. ABSENT: pedal edema Musculoskeletal exam: PRESENT: ambulatory, full ROM, normal inspection Neurological exam: PRESENT: alert, awake, oriented to person, oriented to place, oriented to time, oriented to situation Psychiatric exam: PRESENT: appropriate affect Skin exam: PRESENT: dry, intact, normal color Results Laboratory Results: 12/01/18 05:07 12/02/18 05:21 12/02/18 12/02/18 05:21 14:05 Sodium 137.7 Potassium 4.5 Chloride 103 Carbon Dioxide 25 Anion Gap 10 BUN 20 Creatinine 2.60 H Est GFR ( Amer) 30 L Est GFR (Non-Af Amer) 25 L Glucose 97 Calcium 8.2 L Urine Color KOKO Urine Appearance CLEAR Urine pH 7.0 Ur Specific [place] 1.013 Urine Protein 100 H Urine Glucose (UA) NEGATIVE Urine Ketones NEGATIVE Urine Blood LARGE H Urine Nitrite POSITIVE H Ur Leukocyte Esterase NEGATIVE Urine WBC (Auto) 5 Urine RBC (Auto) >182 11/24/18 07:34 Troponin I < 0.012 Impressions: Renal Ultrasound 11/24/18 00:00 IMPRESSION: Both kidneys demonstrate increased echogenicity of the renal parenchyma. The possibility of chronic medical renal disease cannot be excluded. Head CT 11/24/18 07:56 IMPRESSION: No acute intracranial hemorrhage or acute territorial infarct. Carotid Doppler Study 11/25/18 00:00 IMPRESSION: Soft plaque at the right carotid bifurcation worrisome for flow significant stenosis right proximal internal carotid artery. However, velocity measurements in the proximal right internal carotid artery suggest against flow significant stenosis. The CT angio of the neck with IV contrast is recommended for further evaluation of the right carotid bifurcation. No flow significant stenosis at the left carotid bifurcation. Antegrade pul satile vertebral artery flow bilaterally. Chest X-Ray 11/25/18 00:00 IMPRESSION: 1. NO ACUTE RADIOGRAPHIC FINDING IN THE CHEST. Neck MRA 11/26/18 00:00 IMPRESSION: NO SIGNIFICANT STENOSIS. Hand X-Ray 11/29/18 08:00 IMPRESSION: 1. No evidence of acute bony abnormality. 2. Scattered subtle marginal erosions most conspicuous at the 3rd and 4th proximal interphalangeal joints on the left with additional MCP and carpal bone subchondral cystic change. Findings can be seen with rheumatologic abnormality such as rheumatoid arthritis. No evidence of significant ulnar deviation. 3. 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 Status: Imported from PACS Assessment & Plan - Diagnosis (1) Acute kidney injury Is this a current diagnosis for this admission?: Yes Plan: Improved; Cr 5.67-> 7.71-> 3.63-> 3.37-> 2.60->2.3 Previous Cr was WNL. Symptoms of lightheadness and weakeness started around time of Lisinopril. Most likely etiology is medication included (also taking Neurontin and Lyrica). Renal ultrasound ruled out obstruction Continue holding lisinopril, neurontin, lyrica Avoid nephrotoxin including NSAIDs Nephrology consulted (Dr. Estevez), appreciate recs. No plan for dialysis today. (2) UTI (urinary tract infection) Qualifiers: Urinary tract infection type: acute cystitis Hematuria presence: with hematuria Qualified Code(s): N30.01 - Acute cystitis with hematuria Is this a current diagnosis for this admission?: Yes Plan: Urinalysis is positive for UTI. Urine Culture pending. CT Abd shows bladder wall thickening and stranding Change PO keflex to IV levaquin Encourage p.o. fluids. Pyridium for pain. (3) Chronic narcotic use Is this a current diagnosis for this admission?: Yes Plan: Continue the patient's home medication regiment of [place] 7.53 times daily and tramadol 100 mg 3 times daily as needed. Outpatient follow-up with primary care provider. Consider outpatient pain management consultation. Patient reports strong history of rheumatoid arthritis; rheumatoid factor is negative. ESR and CRP are slightly elevated; may be related to patient's recent dialysis catheter placement. May also consider outpatient rheumatology follow- up. (4) Dysuria Is this a current diagnosis for this admission?: Yes Plan: Secondary to traumatic Bryan removal and has now developed UTI Urinalysis is (+) for UTI w/ large blood and Nitrite CT for abdominal distention completed, shows bladder wall thickening and stranding, consistent with acute cystitis Initiate IV levaquin for complicated UTI Low-dose Pyridium secondary to NGA. Trial of Urojet, minimal relief. Increased [place] to every 4 hours as needed. Continue home dose Toradol. (5) Confusion Is this a current diagnosis for this admission?: Yes Plan: Resolved. Likely Uremia related to Acute Kidney Failure. Head CT no acute findings. Monitor sedating medications closely; may require dose reduction of his [place]. (6) Hyperkalemia Is this a current diagnosis for this admission?: Yes Plan: Resolved; secondary to Acute Kidney failure. K 5.2-> 5.9-> 4.5 Nephrology is consulted; primary management per their expertise. (7) Vertigo Is this a current diagnosis for this admission?: Yes Plan: Resolved. - Time Time Spent with patient: 15-24 minutes Medications reviewed and adjusted accordingly: Yes Anticipated discharge: Home Within: within 72 hours - Inpatient Certification Based on my medical assessment, after consideration of the patient's comorbidities, presenting symptoms, or acuity I expect that the services needed warrant INPATIENT care.: Yes I certify that my determination is in accordance with my understanding of Medicare's requirements for reasonable and necessary INPATIENT services [42 CFR 412.3e].: Yes Medical Necessity: Risk of Complication if Not Cared For in Hospital - Plan Summary Plan Summary: initiate iv abx
[2018-12-03] MEDS: ZOLPIDEM TARTRATE 5 MG TABLET PO SCH (21:40)
[2018-12-03] MEDS: ATORVASTATIN CALCIUM 20 MG TABLET PO SCH (21:40)
[2018-12-03] MEDS: AMITRIPTYLINE HCL 10 MG TABLET PO SCH (21:40)
[2018-12-04] MEDS: HYDROCODONE/ACETAMINOPHEN 7.5-325 MG TABLET PO PRN ×5 (04:31→22:30)
[2018-12-04] MEDS: HEPARIN SOD (PORCINE) 5,000 UNIT/ML 1 ML SYRINGE SUBCUT SCH ×3 (05:21→22:30)
[2018-12-04] MEDS: LANSOPRAZOLE 30 MG TAB.RAP.DR PO SCH (05:30)
[2018-12-04 05:42] LABS: HEMATOCRIT 28.8 % (37.9-51.0); HEMOGLOBIN 9.9 g/dL (13.5-17.0); MEAN CORPUSCULAR HEMOGLOBIN 30.9 pg (27.0-33.4); MEAN CORPUSCULAR HGB CONC 34.2 g/dL (32.0-36.0); MEAN CORPUSCULAR VOLUME 90 fl (80-97); PLATELET COUNT 183 10^3/uL (150-450); RED BLOOD COUNT 3.19 10^6/uL (4.35-5.55); RED CELL DISTRIBUTION WIDTH 13.4 % (11.5-14.0); WHITE BLOOD COUNT 4.7 10^3/uL (4.0-10.5)
[2018-12-04 06:06] LABS: ALANINE AMINOTRANSFERASE 68 U/L (21-72); ALBUMIN 3.5 g/dL (3.5-5.0); ALKALINE PHOSPHATASE 55 U/L (38-126); ANION GAP 8 (5-19); ASPARTATE AMINO TRANSFERASE 44 U/L (17-59); BILIRUBIN,TOTAL 0.5 mg/dL (0.2-1.3); BLOOD UREA NITROGEN 16 mg/dL (7-20); CALCIUM 8.5 mg/dL (8.4-10.2); CARBON DIOXIDE 26 mmol/L (22-30); CHLORIDE 103 mmol/L (98-107); GLUCOSE 93 mg/dL (75-110); POTASSIUM 4.7 mmol/L (3.6-5.0); SODIUM 137.3 mmol/L (137-145); TOTAL PROTEIN 5.9 g/dL (6.3-8.2)
[2018-12-04] MEDS: PHENAZOPYRIDINE HCL 200 MG TABLET PO SCH (09:29)
[2018-12-04] MEDS: TAMSULOSIN HCL 0.4 MG CAP.SR.24H PO SCH ×2 (09:29→17:50)
--- NOTE | 2018-12-04 10:44 | PDOC PROGRESS REPORT ---
Subjective Progress Note for:: 12/04/18 Reason For Visit: Patient seen today. He complains of pain in his perineum and has difficulty and painful urination. He is also intermittently incontinent of urine. He does not recall the trauma of the Bryan catheter removal. He denies any history of fever or chills. He is eating and drinking fairly well. No complaints of any chest pain or shortness of breath. Labs and medications were reviewed with the patient which show stable creatinine at 2.6 not improving any further . I note that the patient's antibiotics has been changed to IV levofloxacin by hospitalist yesterday.I also note that the patient had a CT scan noncontrasted yesterday that showed some bladder wall thickening and stranding suggestive of possible infectious/inflammatory cystitis.His urine micro is growing 60-70,000 colonies of Klebsiella. Physical Exam Vital Signs: Temp Pulse Resp BP Pulse Ox 98.5 F 84 14 103/57 L 97 12/04/18 07:45 12/04/18 07:45 12/04/18 07:45 12/04/18 07:45 12/04/18 07:45 Intake & Output 12/03/18 12/04/18 12/05/18 06:59 06:59 06:59 Intake Total 1307 1067 Output Total 1125 1450 Balance 182 -383 Weight 82.4 kg 80.6 kg General appearance: PRESENT: no acute distress Respiratory exam: PRESENT: clear to auscultation cricket. ABSENT: crackles Cardiovascular exam: PRESENT: +S1, +S2 GI/Abdominal exam: PRESENT: normal bowel sounds, soft, tenderness - -Mild in the suprapubic area. No masses were felt.. ABSENT: organomegaly Extremities exam: ABSENT: pedal edema Neurological exam: PRESENT: alert, awake, oriented to person, oriented to place Psychiatric exam: PRESENT: anxious Skin exam: ABSENT: erythema, mottled, rash Results Laboratory Results: 12/04/18 05:20 12/04/18 05:20 12/03/18 12/03/18 12/04/18 05:30 12:15 05:20 WBC 4.3 RBC 3.23 L Hgb 10.1 L Hct 29.0 L MCV 90 MCH 31.1 MCHC 34.7 RDW 13.6 Plt Count 175 Sodium 137.3 Potassium 4.7 Chloride 103 Carbon Dioxide 26 Anion Gap 8 BUN 16 Creatinine 2.47 H Est GFR ( Amer) 32 L Est GFR (Non-Af Amer) 26 L Glucose 93 Calcium 8.5 Total Bilirubin 0.5 AST 44 ALT 68 Alkaline Phosphatase 55 Total Protein 5.9 L Albumin 3.5 Prostate Specific Ag 1.160 12/04/18 05:20 WBC 4.7 RBC 3.19 L Hgb 9.9 L Hct 28.8 L MCV 90 MCH 30.9 MCHC 34.2 RDW 13.4 Plt Count 183 Sodium Potassium Chloride Carbon Dioxide Anion Gap BUN Creatinine Est GFR ( Amer) Est GFR (Non-Af Amer) Glucose Calcium Total Bilirubin AST ALT Alkaline Phosphatase Total Protein Albumin Prostate Specific Ag 12/02/18 14:05 Clean Catch Midstream Urine Culture - Final Klebsiella Pneumoniae Mixed Urogenital Katina 11/24/18 07:34 Troponin I < 0.012 Impressions: Renal Ultrasound 11/24/18 00:00 IMPRESSION: Both kidneys demonstrate increased echogenicity of the renal parenchyma. The possibility of chronic medical renal disease cannot be excluded. Head CT 11/24/18 07:56 IMPRESSION: No acute intracranial hemorrhage or acute territorial infarct. Carotid Doppler Study 11/25/18 00:00 IMPRESSION: Soft plaque at the right carotid bifurcation worrisome for flow significant stenosis right proximal internal carotid artery. However, velocity measurements in the proximal right internal carotid artery suggest against flow significant stenosis. The CT angio of the neck with IV contrast is recommended for further evaluation of the right carotid bifurcation. No flow significant stenosis at the left carotid bifurcation. Antegrade pulsatile vertebral artery flow bilaterally. Chest X-Ray 11/25/18 00:00 IMPRESSION: 1. NO ACUTE RADIOGRAPHIC FINDING IN THE CHEST. Neck MRA 11/26/18 00:00 IMPRESSION: NO SIGNIFICANT STENOSIS. Hand X-Ray 11/29/18 08:00 IMPRESSION: 1. No evidence of acute bony abnormality. 2. Scattered subtle marginal erosions most conspicuous at the 3rd and 4th proximal interphalangeal joints on the left with additional MCP and carpal bone subchondral cystic change. Findings can be seen with rheumatologic abnormality such as rheumatoid arthritis. No evidence of significant ulnar deviation. 3. 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 Abdomen/Pelvis CT 12/03/18 00:00 IMPRESSION: Bladder wall thickening and fat stranding, findings consistent with nonspecific infectious or inflammatory cystitis. Correlate with urinalysis. No evidence of urinary tract calculus or other findings to explain flank pain. Assessment & Plan - Diagnosis (1) Acute kidney injury Is this a current diagnosis for this admission?: Yes Plan: Patient is doing well today. He is currently nonoliguric and making good amounts of urine.His labs and medications are reviewed with him. His creatinine is now down to 2.4 from a peak of 7+ which she was initiated on hemodialysis. He does not show any features that indicate he needs to be dialyzed again.Advised to continue good intake of fluids as he is doing now. His creatinine is not getting any lower currently and has been rather static for the last couple of days. He has got some difficulty in urination after he had some trauma with a Bryan catheter for which she was begun on Pyridium as well as Flomax last week. CT scan shows bladder wall thickening with stranding suggestive of cystitis. He could also be having an element of prostatitis. Agree with the change of IV antibiotics to levofloxacin. He might need a urolog y follow-up as an outpatient for including to have a cystoscopy. Discussed that with the patient. (2) Hyperkalemia Is this a current diagnosis for this admission?: Yes Plan: Resolved. Monitor (3) Hypotension Is this a current diagnosis for this admission?: Yes Plan: Lowish systolic. Stay off any antihypertensives especially ODETTE inhibitors that he was on the time of admission. Monitor for couple of weeks post discharge for reinitiation of any antihypertensives. (4) UTI (urinary tract infection) Qualifiers: Urinary tract infection type: acute cystitis Hematuria presence: with hematuria Qualified Code(s): N30.01 - Acute cystitis with hematuria Is this a current diagnosis for this admission?: Yes Plan: I believe he has had some inflammation removed following his traumatic removal of the Bryan catheter. Not entirely convinced if he is growing a full-blown UTI given the low colony count of Klebsiella. However I believe he might have an element of prostatitis as well and I agree with the change of antibiotics to IV levofloxacin. As mentioned earlier he would probably need to have a follow-up visit with an urologist as an outpatient post discharge.
[2018-12-04] MEDS ORDERED: TRAMADOL HCL 50 MG TABLET PO PRN (12:06)
--- NOTE | 2018-12-04 15:23 | PDOC PROGRESS REPORT ---
Subjective Progress Note for:: 12/04/18 Subjective:: YURI SABILLON is a 63 year old male with a history of HTN, vertigo who presents with one week of worsening lightheadness and dizziness admitted for acute kidney failure secondary to ATN (concurrent lisinopril, Lyrica, gabapentin, and NSAID use). The patient was seen this morning on rounds. He complains of lower abdominal 'pressure,' exacerbated whenever he urinates. The patient states he is very uncomfortable. Upon assessment, the patient's abdomen is slightly distended. His lower abdomen is TTP. +BS. Continue IV levaquin for a complicated UTI. Provides double coverage for prostatitis Patient will likely require outpatient urology. If pain is manageable, plan for discharge in 24-48 hrs Reason For Visit: ACUTE RENAL FAILURE Physical Exam Vital Signs: Temp Pulse Resp BP Pulse Ox 98.7 F 96 16 111/64 99 12/04/18 11:29 12/04/18 14:00 12/04/18 11:29 12/04/18 11:29 12/04/18 11:29 Intake & Output 12/03/18 12/04/18 12/05/18 06:59 06:59 06:59 Intake Total 1307 1067 Output Total 1125 1450 Balance 182 -383 Weight 82.4 kg 80.6 kg General appearance: PRESENT: no acute distress, well-developed, well-nourished Eye exam: PRESENT: conjunctiva pink, PERRLA Mouth exam: PRESENT: moist, tongue midline Neck exam: PRESENT: full ROM Respiratory exam: PRESENT: clear to auscultation cricket, symmetrical, unlabored Cardiovascular exam: PRESENT: +S1, +S2 Pulses: PRESENT: normal radial pulses Vascular exam: PRESENT: normal capillary refill GI/Abdominal exam: PRESENT: distended, tenderness - lower abdominal quadrants Rectal exam: PRESENT: deferred Gentrourinary exam: ABSENT: indwelling catheter Extremities exam: PRESENT: full ROM. ABSENT: joint swelling Musculoskeletal exam: PRESENT: ambulatory, full ROM, normal inspection Neurological exam: PRESENT: alert, awake, oriented to person, oriented to place, oriented to time, oriented to situation Psychiatric exam: PRESENT: appropriate affect Skin exam: PRESENT: dry, intact, normal color Results Laboratory Results: 12/04/18 05:20 12/04/18 05:20 12/03/18 12/04/18 12/04/18 05:30 05:20 05:20 WBC 4.7 RBC 3.19 L Hgb 9.9 L Hct 28.8 L MCV 90 MCH 30.9 MCHC 34.2 RDW 13.4 Plt Count 183 Sodium 137.3 Potassium 4.7 Chloride 103 Carbon Dioxide 26 Anion Gap 8 BUN 16 Creatinine 2.47 H Est GFR ( Amer) 32 L Est GFR (Non-Af Amer) 26 L Glucose 93 Calcium 8.5 Total Bilirubin 0.5 AST 44 ALT 68 Alkaline Phosphatase 55 Total Protein 5.9 L Albumin 3.5 Prostate Specific Ag 1.160 12/02/18 14:05 Clean Catch Midstream Urine Culture - Final Klebsiella Pneumoniae Mixed Urogenital Katina 11/24/18 07:34 Troponin I < 0.012 Impressions: Renal Ultrasound 11/24/18 00:00 IMPRESSION: Both kidneys demonstrate increased echogenicity of the renal parenchyma. The possibility of chronic medical renal disease cannot be excluded. Head CT 11/24/18 07:56 IMPRESSION: No acute intracranial hemorrhage or acute territorial infarct. Carotid Doppler Study 11/25/18 00:00 IMPRESSION: Soft plaque at the right carotid bifurcation worrisome for flow significant stenosis right proximal internal carotid artery. However, velocity measurements in the proximal right internal carotid artery suggest against flow significant stenosis. The CT angio of the neck with IV contrast is recommended for further evaluation of the right carotid bifurcation. No flow significant stenosis at the left carotid bifurcation. Antegrade pulsat ile vertebral artery flow bilaterally. Chest X-Ray 11/25/18 00:00 IMPRESSION: 1. NO ACUTE RADIOGRAPHIC FINDING IN THE CHEST. Neck MRA 11/26/18 00:00 IMPRESSION: NO SIGNIFICANT STENOSIS. Hand X-Ray 11/29/18 08:00 IMPRESSION: 1. No evidence of acute bony abnormality. 2. Scattered subtle marginal erosions most conspicuous at the 3rd and 4th proximal interphalangeal joints on the left with additional MCP and carpal bone subchondral cystic change. Findings can be seen with rheumatologic abnormality such as rheumatoid arthritis. No evidence of significant ulnar deviation. 3. 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 Abdomen/Pelvis CT 12/03/18 00:00 IMPRESSION: Bladder wall thickening and fat stranding, findings consistent with nonspecific infectious or inflammatory cystitis. Correlate with urinalysis. No evidence of urinary tract calculus or other findings to explain flank pain. Status: Imported from PACS Assessment & Plan - Diagnosis (1) Acute kidney injury Is this a current diagnosis for this admission?: Yes Plan: Improved; Cr 5.67-> 7.71-> 3.63-> 3.37-> 2.60->2.3 Previous Cr was WNL. Symptoms of lightheadness and weakeness started around time of Lisinopril. Most likely etiology is medication included (also taking Neurontin and Lyrica). Renal ultrasound ruled out obstruction Continue holding lisinopril, neurontin, lyrica Avoid nephrotoxin including NSAIDs Nephrology consulted (Dr. Estevez), appreciate recs. (2) UTI (urinary tract infection) Qualifiers: Urinary tract infection type: acute cystitis Hematuria presence: with hematuria Qualified Code(s): N30.01 - Acute cystitis with hematuria Is this a current diagnosis for this admission?: Yes Plan: Urinalysis is positive for UTI. Urine Culture (+) Klebsiella CT Abd shows bladder wall thickening and stranding Continue IV levaquin Antibiotic coverage for UTI and prostatitis Encourage p.o. fluids. Patient will likely need an outpatient referral to urology (3) Chronic narcotic use Is this a current diagnosis for this admission?: Yes Plan: Patient takes Tramadol and [place] for chronic pain Outpatient follow-up with primary care provider. Consider outpatient pain management consultation. Patient reports strong history of rheumatoid arthritis; rheumatoid factor is negative. ESR and CRP are slightly elevated; may be related to patient's recent dialysis catheter placement. May also consider outpatient rheumatology follow- up. (4) Dysuria Is this a current diagnosis for this admission?: Yes Plan: Secondary to traumatic Bryan removal and has now developed UTI Urinalysis is (+) for UTI w/ large blood and Nitrite Urine culture (+) Klebsiella CT for abdominal distention completed, shows bladder wall thickening and stranding, consistent with acute cystitis Continue IV levaquin for complicated UTI, provides coverage for possible prostatitis Pyridium d/c'd [place] and Tramadol PRN Avoid nephrotoxic medications (5) Confusion Is this a current diagnosis for this admission?: Yes Plan: Resolved. Patient is A&O x 3 Likely Uremia related to Acute Kidney Failure. Head CT no acute findings. Monitor sedating medications closely; may require dose reduction of his [place]. (6) Hyperkalemia Is this a current diagnosis for this admission?: Yes Plan: Resolved; secondary to Acute Kidney failure. K 5.2-> 5.9-> 4.5 Nephrology is consulted; primary management per their expertise. (7) Vertigo Is this a current diagnosis for this admission?: Yes Plan: Resolved. - Time Time Spent with patient: 15-24 minutes Medications reviewed and adjusted accordingly: Yes Anticipated discharge: Home Within: within 72 hours - Inpatient Certification Based on my medical assessment, after consideration of the patient's comorbidities, presenting symptoms, or acuity I expect that the services needed warrant INPATIENT care.: Yes I certify that my determination is in accordance with my understanding of Medicare's requirements for reasonable and necessary INPATIENT services [42 CFR 412.3e].: Yes Medical Necessity: Need for IV Antibiotics - Plan Summary Plan Summary: CONTINUE ABX. MONITOR RENAL FUNCTION.
--- NOTE | 2018-12-04 18:11 | Progress Note ---
Provider Note Provider Note: ID Consult Note Asked by Pharmacy to review patient's chart. Pt not seen or examined. Mr. Moncada is a 63 year old man who was admitted with symtpoms due to NGA secondary to ATN. He also during his hospital stay had a traumatic emery catheter removal and since then, he has had some difficulty urinating, some d ysuria, and suprapubic discomfort. No fever. U/A shows blood, no pyuria. UCx <100k Klebsiella and mixed jacque. He has been able to void without residuals, however, and has not required re-insertion of Emery. CT scan showed thickened bladder wall, adjacent stranding. Keflex was started on 12/02, then switched to Levaquin 12/03 to present. Impression/Recommendations Given the overlap in symptoms, some would find 3-7 days course of antibiotics not unreasonable. However, the lack of pyuria on U/A has a high negative predictive value against pt having a UTI. CT scan findings are not specific enough to make UTI diagnosis, and traumatic emery removal accounts for his irritative urinary symptoms. Suprapubic discomfort and dysuria can be caused by physical inflammation and minor tissue injury to the urethra. Doubt antibiotics are going to bring about much symptomatic but could cause adverse effects. Consider stopping Levaquin, particularly symptoms are not responding as would be typically expected for a UTI (usually symptoms begin to resolve within 1 day of starting antibiotics). Maurice Turpin MD [facility] pager [phone]
[2018-12-04] MEDS: ATORVASTATIN CALCIUM 20 MG TABLET PO SCH (22:30)
[2018-12-04] MEDS: AMITRIPTYLINE HCL 10 MG TABLET PO SCH (22:30)
[2018-12-04] MEDS: ZOLPIDEM TARTRATE 5 MG TABLET PO SCH (22:30)
[2018-12-04] MEDS: ACETAMINOPHEN 325 MG TABLET PO PRN (22:35)
[2018-12-05] MEDS: HEPARIN SOD (PORCINE) 5,000 UNIT/ML 1 ML SYRINGE SUBCUT SCH ×3 (06:05→21:22)
[2018-12-05] MEDS: HYDROCODONE/ACETAMINOPHEN 7.5-325 MG TABLET PO PRN ×4 (06:10→18:08)
[2018-12-05] MEDS: LANSOPRAZOLE 30 MG TAB.RAP.DR PO SCH (06:10)
[2018-12-05] MEDS: ACETAMINOPHEN 325 MG TABLET PO PRN (06:13)
[2018-12-05] MEDS: TAMSULOSIN HCL 0.4 MG CAP.SR.24H PO SCH ×2 (10:30→18:08)
[2018-12-05 11:18] LABS: AMORPHOUS SEDIMENT,URINE TRACE /HPF; APPEARANCE,URINE SLIGHTLY-CLOUDY; BILIRUBIN,URINE NEGATIVE (NEGATIVE); COLOR,URINE AMBER; GLUCOSE, URINE NEGATIVE (NEGATIVE); KETONES,URINE NEGATIVE (NEGATIVE); LEUKOCYTE ESTERASE,URINE NEGATIVE (NEGATIVE); NITRITE,URINE POSITIVE (NEGATIVE); PROTEIN,URINE 100 mg/dL (NEGATIVE); URINE SPECIFIC GRAVITY 1.021
--- NOTE | 2018-12-05 11:42 | PDOC PROGRESS REPORT ---
Subjective Progress Note for:: 12/05/18 Reason For Visit: Patient seen this morning. He still complaining of dysuria and lower abdominal pain in the hypogastric region. Denies any history of fever or chills. He still is able to urinate on his own. Labs and medications were reviewed. His UA shows that his microscopic hematuria is getting better. Physical Exam Vital Signs: Temp Pulse Resp BP Pulse Ox 100.1 F 98 18 110/63 98 12/05/18 03:46 12/05/18 03:46 12/05/18 03:46 12/05/18 03:46 12/05/18 03:46 Intake & Output 12/04/18 12/05/18 12/06/18 06:59 06:59 06:59 Intake Total 1067 1318 Output Total 1450 750 Balance -383 568 Weight 80.6 kg 79.7 kg General appearance: PRESENT: no acute distress Respiratory exam: PRESENT: clear to auscultation cricket. ABSENT: crackles Cardiovascular exam: PRESENT: +S1, +S2 GI/Abdominal exam: PRESENT: normal bowel sounds, soft, tenderness - -Mild in the suprapubic area. No masses were felt.. ABSENT: organomegaly Neurological exam: PRESENT: alert, awake, oriented to person, oriented to place Results Laboratory Results: 12/04/18 05:20 12/04/18 05:20 12/05/18 11:00 Urine Color KOKO Urine Appearance SLIGHTLY-CLOUDY Urine pH 5.0 Ur Specific [place] 1.021 Urine Protein 100 H Urine Glucose (UA) NEGATIVE Urine Ketones NEGATIVE Urine Blood MODERATE H Urine Nitrite POSITIVE H Ur Leukocyte Esterase NEGATIVE Urine WBC (Auto) 5 Urine RBC (Auto) 67 12/02/18 14:05 Clean Catch Midstream Urine Culture - Final Klebsiella Pneumoniae Mixed Urogenital Katina 11/24/18 07:34 Troponin I < 0.012 Impressions: Renal Ultrasound 11/24/18 00:00 IMPRESSION: Both kidneys demonstrate increased echogenicity of the renal parenchyma. The possibility of chronic medical renal disease cannot be excluded. Head CT 11/24/18 07:56 IMPRESSION: No acute intracranial hemorrhage or acute territorial infarct. Carotid Doppler Study 11/25/18 00:00 IMPRESSION: Soft plaque at the right carotid bifurcation worrisome for flow significant stenosis right proximal internal carotid artery. However, velocity measurements in the proximal right internal carotid artery suggest against flow significant stenosis. The CT angio of the neck with IV contrast is recommended for further evaluation of the right carotid bifurcation. No flow significant stenosis at the left carotid bifurcation. Antegrade p ulsatile vertebral artery flow bilaterally. Chest X-Ray 11/25/18 00:00 IMPRESSION: 1. NO ACUTE RADIOGRAPHIC FINDING IN THE CHEST. Neck MRA 11/26/18 00:00 IMPRESSION: NO SIGNIFICANT STENOSIS. Hand X-Ray 11/29/18 08:00 IMPRESSION: 1. No evidence of acute bony abnormality. 2. Scattered subtle marginal erosions most conspicuous at the 3rd and 4th proximal interphalangeal joints on the left with additional MCP and carpal bone subchondral cystic change. Findings can be seen with rheumatologic abnormality such as rheumatoid arthritis. No evidence of significant ulnar deviation. 3. 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 Abdomen/Pelvis CT 12/03/18 00:00 IMPRESSION: Bladder wall thickening and fat stranding, findings consistent with nonspecific infectious or inflammatory cystitis. Correlate with urinalysis. No evidence of urinary tract calculus or other findings to explain flank pain. Assessment & Plan - Diagnosis (1) Acute kidney injury Is this a current diagnosis for this admission?: Yes Plan: Patient is doing well today. He is currently nonoliguric and making good amounts of urine.No chemistry was done this morning. He does not show any features that indicate he needs to be dialyzed again.Advised to continue good intake of fluids as he is doing now. He has got some difficulty in urination after he had some trauma with a Bryan catheter for which she was begun on Pyr idium as well as Flomax last week. CT scan shows bladder wall thickening with stranding suggestive of cystitis. He could also be having an element of prostatitis. Agree with the change of IV antibiotics to levofloxacin. He might need a urology follow-up as an outpatient for including to have a cystoscopy. Since his continue to have issues were discussed with the hospitalist about possibly doing a retrograde pyelogram to see and check on the integrity of the bladder. Otherwise we will continue on current management.. (2) Hyperkalemia Is this a current diagnosis for this admission?: Yes Plan: Resolved. Monitor (3) Hypotension Is this a current diagnosis for this admission?: Yes Plan: Currently stable. Stay off any antihypertensives especially ODETTE inhibitors that he was on the time of admission. Monitor for couple of weeks post discharge for reinitiation of any antihypertensives. (4) UTI (urinary tract infection) Qualifiers: Urinary tract infection type: acute cystitis Hematuria presence: with hematuria Qualified Code(s): N30.01 - Acute cystitis with hematuria Is this a current diagnosis for this admission?: Yes Plan: I believe he has had some inflammation removed following his traumatic removal of the Bryan catheter. Not entirely convinced if he is growing a full-blown UTI given the low colony count of Klebsiella. However I believe he might have an element of prostatitis as well and I agree with the change of antibiotics to IV levofloxacin. As mentioned earlier he would probably need to have a follow-up visit with an urologist as an outpatient post discharge.His urine microscopy shows a decrease in amount of RBCs. Since he is having persistent pain around the hypogastric region discussed with hospitalist about doing a retrograde pyelogram to delineate the anatomy of the bladder better.
--- NOTE | 2018-12-05 15:31 | RADIOLOGY REPORT (SQ) ---
EXAM DESCRIPTION: URETHROGRAM RETROGRADE COMPLETED DATE/TIME: 12/05/2018 3:05 pm REASON FOR STUDY: dysuria. traumatic emery removal R69 ILLNESS, UNSPECIFIED COMPARISON: None. TECHNIQUE: Using sterile technique the patients urethra was partially canalized with a 10 fr Emery c atheter. Gentle contrast injection of 30 mL of Isovue-300 was performed, penile urethra is intact. The cathet er was gently advanced into the urinary bladder and further injection of contrast total urinary bladd er was performed. Patient voided, pushing the 10 [place] Emery catheter out of the urethra. Multiple digital spot films were saved to PACS. RADIATION DOSE: 57 seconds 15 digital fluoroscopic images saved to PACS. LIMITATIONS: None. FINDINGS: The penile urethra is normal caliber. Urinary bladder was distended with 30 mL of Isovue 300 contrast. Patient did not tolerate distention of the urinary bladder further. Bladder is contracted, with a small diverticulum along the bladder dome, no extravasation from the bladder is identified. Patient was instructed to void. During voiding, the 10 [place] catheter was pushed out of the bladder and urethra. On voiding, the membranous urethra is diffusely narrowed, indicating mucosal edema. There is no extr avasation of contrast identified along the membranous urethra. IMPRESSION: Edema with narrowing of the membranous urethra. No talon urinary extravasation from the urethra or bladder. COMMENT: Quality ID [id number]: Final reports for procedures using fluoroscopy that document radiation exp osure indices, or exposure time and number of fluorographic images (if radiation exposure indices are not available) TECHNICAL DOCUMENTATION: JOD ID: [id number] [employer]- All Rights Reserved Reading location - IP/workstation name: [email or web address]
[2018-12-05] MEDS: MORPHINE SULFATE 10 MG/ML INJ IV PRN ×2 (15:34→21:21)
[2018-12-05 15:35] LABS: ANION GAP 11 (5-19); BLOOD UREA NITROGEN 19 mg/dL (7-20); CALCIUM 8.7 mg/dL (8.4-10.2); CARBON DIOXIDE 27 mmol/L (22-30); CHLORIDE 98 mmol/L (98-107); GLUCOSE 106 mg/dL (75-110); POTASSIUM 4.5 mmol/L (3.6-5.0); SODIUM 135.6 mmol/L (137-145)
[2018-12-05] MEDS ORDERED: LEVOFLOXACIN 750 MG/D5W RTU 750 MG/150 ML RTUPB IV SCH (18:00)
[2018-12-05] MEDS: ZOLPIDEM TARTRATE 5 MG TABLET PO SCH (21:21)
[2018-12-05] MEDS: AMITRIPTYLINE HCL 10 MG TABLET PO SCH (21:22)
[2018-12-05] MEDS: ATORVASTATIN CALCIUM 20 MG TABLET PO SCH (21:22)
--- NOTE | 2018-12-05 21:44 | PDOC PROGRESS REPORT ---
Subjective Progress Note for:: 12/05/18 Subjective:: YURI SABILLON is a 63 year old male with a history of HTN, vertigo who presents with one week of worsening lightheadness and dizziness admitted for acute kidney failure secondary to ATN (concurrent lisinopril, Lyrica, gabapentin, and NSAID use). The patient was seen this morning on rounds. He still complains of lower abdominal 'pressure,' exacerbated whenever he urinates. The patient states he is very uncomfortable. Upon assessment, the patient's abdomen is slightly distended. His lower abdomen is TTP. +BS. Nursing staff noted that they witness the patient crying today because he was in so much pain. Continue IV levaquin for a complicated UTI. Provides double coverage for prostatitis Patient will likely require outpatient urology. Urethrogram done today to assess for structural damage due to traumatic emery removal. Reason For Visit: ACUTE RENAL FAILURE Physical Exam Vital Signs: Temp Pulse Resp BP Pulse Ox 99.7 F 101 H 20 138/76 H 98 12/05/18 16:30 12/05/18 19:00 12/05/18 16:30 12/05/18 16:30 12/05/18 16:30 Intake & Output 12/04/18 12/05/18 12/06/18 06:59 06:59 06:59 Intake Total 1067 1318 472 Output Total 1450 750 780 Balance -383 568 -308 Weight 80.6 kg 79.7 kg General appearance: PRESENT: no acute distress, well-developed, well-nourished Head exam: PRESENT: atraumatic Eye exam: PRESENT: PERRLA Mouth exam: PRESENT: moist, tongue midline Neck exam: PRESENT: full ROM Respiratory exam: PRESENT: clear to auscultation cricket, symmetrical, unlabored Cardiovascular exam: PRESENT: RRR Pulses: PRESENT: normal radial pulses, normal dorsalis pedis pul GI/Abdominal exam: PRESENT: distended, normal bowel sounds, soft, tenderness Rectal exam: PRESENT: deferred Gentrourinary exam: ABSENT: scrotal swelling, testicular tenderness, urethral discharge, indwelling catheter Extremities exam: PRESENT: full ROM Musculoskeletal exam: PRESENT: ambulatory, full ROM, normal inspection Neurological exam: PRESENT: alert, awake, oriented to person, oriented to place, oriented to time, oriented to situation Psychiatric exam: PRESENT: appropriate affect Skin exam: PRESENT: dry, intact, normal color Results Laboratory Results: 12/04/18 05:20 12/05/18 14:45 12/05/18 12/05/18 11:00 14:45 Sodium 135.6 L Potassium 4.5 Chloride 98 Carbon Dioxide 27 Anion Gap 11 BUN 19 Creatinine 2.33 H Est GFR ( Amer) 34 L Est GFR (Non-Af Amer) 28 L Glucose 106 Calcium 8.7 Urine Color KOKO Urine Appearance SLIGHTLY-CLOUDY Urine pH 5.0 Ur Specific Secor 1.021 Urine Protein 100 H Urine Glucose (UA) NEGATIVE Urine Ketones NEGATIVE Urine Blood MODERATE H Urine Nitrite POSITIVE H Ur Leukocyte Esterase NEGATIVE Urine WBC (Auto) 5 Urine RBC (Auto) 67 11/24/18 07:34 Troponin I < 0.012 Impressions: Renal Ultrasound 11/24/18 00:00 IMPRESSION: Both kidneys demonstrate increased echogenicity of the renal parenchyma. The possibility of chronic medical renal disease cannot be excluded. Head CT 11/24/18 07:56 IMPRESSION: No acute intracranial hemorrhage or acute territorial infarct. Carotid Doppler Study 11/25/18 00:00 IMPRESSION: Soft plaque at the right carotid bifurcation worrisome for flow significant stenosis right proximal internal carotid artery. However, velocity measurements in the proximal right internal carotid artery suggest against flow significant stenosis. The CT angio of the neck with IV contrast is recommended for further evaluation of the right carotid bifurcation. No flow significant stenosis at the left carotid bifurcation. Antegrade pulsatile vertebral artery flow bilaterally. Chest X-Ray 11/25/18 00:00 IMPRESSION: 1. NO ACUTE RADIOGRAPHIC FINDING IN THE CHEST. Neck MRA 11/26/18 00:00 IMPRESSION: NO SIGNIFICANT STENOSIS. Hand X-Ray 11/29/18 08:00 IMPRESSION: 1. No evidence of acute bony abnormality. 2. Scattered subtle marginal erosions most conspicuous at the 3rd and 4th proximal interphalangeal joints on the left with additional MCP and carpal bone subchondral cystic change. Findings can be seen with rheumatologic abnormality such as rheumatoid arthritis. No evidence of significant ulnar deviation. 3. 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 Abdomen/Pelvis CT 12/03/18 00:00 IMPRESSION: Bladder wall thickening and fat stranding, findings consistent with nonspecific infectious or inflammatory cystitis. Correlate with urinalysis. No evidence of urinary tract calculus or other findings to explain flank pain. Urethrogram 12/05/18 12:48 IMPRESSION: Edema with narrowing of the membranous urethra. No talon urinary extravasation from the urethra or bladder. Status: Imported from PACS Assessment & Plan - Diagnosis (1) Acute kidney injury Is this a current diagnosis for this admission?: Yes Plan: Improved; Cr 5.67-> 7.71-> 3.63-> 3.37-> 2.60->2.3 Previous Cr was WNL. Symptoms of lightheadness and weakeness started around time of Lisinopril. Most likely etiology is medication included (also taking Neurontin and Lyrica). Renal ultrasound ruled out obstruction Continue holding lisinopril, neurontin, lyrica Avoid nephrotoxin including NSAIDs Nephrology consulted (Dr. Estevez), appreciate recs. (2) UTI (urinary tract infection) Qualifiers: Urinary tract infection type: acute cystitis Hematuria presence: with hematuria Qualified Code(s): N30.01 - Acute cystitis with hematuria Is this a current diagnosis for this admission?: Yes Plan: Urinalysis is positive for UTI. Urine Culture (+) Klebsiella CT Abd shows bladder wall thickening and stranding Continue IV levaquin Antibiotic coverage for UTI and prostatitis Encourage p.o. fluids. Patient will likely need an outpatient referral to urology (3) Chronic narcotic use Is this a current diagnosis for this admission?: Yes Plan: Patient takes Tramadol and [place] for chronic pain Outpatient follow-up with primary care provider. Consider outpatient pain management consultation. Patient reports strong history of rheumatoid arthritis; rheumatoid factor is negative. ESR and CRP are slightly elevated; may be related to patient's recent dialysis catheter placement. May also consider outpatient rheumatology follow- up. (4) Dysuria Is this a current diagnosis for this admission?: Yes Plan: Secondary to traumatic Emery removal (patient accidentally stepped on Emery tubing and ripped out catheter with balloon inflated) and has now developed UTI Urinalysis is (+) for UTI w/ large blood and Nitrite Urine culture (+) Klebsiella CT for abdominal distention completed, shows bladder wall thickening and stranding, consistent with acute cystitis Continue IV levaquin for complicated UTI, provides coverage for possible prostat itis Pyridium d/c'd Retrograde urethrogram to evaluate for structural damage associated with emery removal [place] and Tramadol PRN, added IV morphine PRN Avoid nephrotoxic medications (5) Confusion Is this a current diagnosis for this admission?: Yes Plan: Resolved. Patient is A&O x 3 Likely Uremia related to Acute Kidney Failure. Head CT no acute findings. Monitor sedating medications closely; may require dose reduction of his [place]. (6) Hyperkalemia Is this a current diagnosis for this admission?: Yes Plan: Resolved; secondary to Acute Kidney failure. K 5.2-> 5.9-> 4.5 Nephrology is consulted; primary management per their expertise. (7) Vertigo Is this a current diagnosis for this admission?: Yes Plan: Resolved. - Time Time Spent with patient: 15-24 minutes Medications reviewed and adjusted accordingly: Yes Anticipated discharge: Home Within: within 48 hours - Inpatient Certification Based on my medical assessment, after consideration of the patient's comorbidities, presenting symptoms, or acuity I expect that the services needed warrant INPATIENT care.: Yes I certify that my determination is in accordance with my understanding of Medicare's requirements for reasonable and necessary INPATIENT services [42 CFR 412.3e].: Yes Medical Necessity: Risk of Complication if Not Cared For in Hospital
[2018-12-06] MEDS: MORPHINE SULFATE 10 MG/ML INJ IV PRN (03:57)
[2018-12-06 04:15] LABS: HEMATOCRIT 30.1 % (37.9-51.0); HEMOGLOBIN 10.3 g/dL (13.5-17.0); MEAN CORPUSCULAR HEMOGLOBIN 30.5 pg (27.0-33.4); MEAN CORPUSCULAR HGB CONC 34.3 g/dL (32.0-36.0); MEAN CORPUSCULAR VOLUME 89 fl (80-97); PLATELET COUNT 196 10^3/uL (150-450); RED BLOOD COUNT 3.38 10^6/uL (4.35-5.55); RED CELL DISTRIBUTION WIDTH 13.4 % (11.5-14.0); WHITE BLOOD COUNT 6.2 10^3/uL (4.0-10.5)
[2018-12-06 04:36] LABS: ANION GAP 14 (5-19); BLOOD UREA NITROGEN 17 mg/dL (7-20); CALCIUM 8.7 mg/dL (8.4-10.2); CARBON DIOXIDE 22 mmol/L (22-30); CHLORIDE 100 mmol/L (98-107); GLUCOSE 99 mg/dL (75-110); POTASSIUM 4.3 mmol/L (3.6-5.0); SODIUM 135.9 mmol/L (137-145)
[2018-12-06] MEDS: LANSOPRAZOLE 30 MG TAB.RAP.DR PO SCH (06:24)
[2018-12-06] MEDS: HYDROCODONE/ACETAMINOPHEN 7.5-325 MG TABLET PO PRN ×3 (06:24→16:15)
[2018-12-06] MEDS: HEPARIN SOD (PORCINE) 5,000 UNIT/ML 1 ML SYRINGE SUBCUT SCH ×2 (06:24→14:00)
[2018-12-06] MEDS: MAGNESIUM SULFATE 1 GM/D5W 100 ML IV SCH ×2 (06:26→08:04)
[2018-12-06] MEDS: TAMSULOSIN HCL 0.4 MG CAP.SR.24H PO SCH ×2 (09:45→17:05)
[2018-12-06] MEDS ORDERED: METHYLPREDNISOLONE INJ 125 MG/2 ML SDV IV ONE (10:30)
[2018-12-06] MEDS: MAGNESIUM SULFATE/D5W 1 GM/100 ML RTUPB IV SCH ×2 (11:03→12:45)
--- NOTE | 2018-12-06 11:41 | PDOC PROGRESS REPORT ---
Subjective Progress Note for:: 12/06/18 Reason For Visit: Patient seen this morning. He still continues to have dysuria and pain during micturition. I reviewed his urethrogram done yesterday which shows a lot of mucus edema and possible early stricture. No signs of any extravasation of the dye in the bladder or in the urethra. Patient denies any history of fever or chills. Continue to get IV levofloxacin. Labs and medications were reviewed which show some improving in his creatinine. Physical Exam Vital Signs: Temp Pulse Resp BP Pulse Ox 98.5 F 83 13 99/45 L 98 12/06/18 07:36 12/06/18 07:36 12/06/18 07:36 12/06/18 07:36 12/06/18 07:36 Intake & Output 12/05/18 12/06/18 12/07/18 06:59 06:59 06:59 Intake Total 1318 1154 100 Output Total 750 1080 Balance 568 74 100 Weight 79.7 kg 79.7 kg General appearance: PRESENT: no acute distress Respiratory exam: PRESENT: clear to auscultation cricket. ABSENT: crackles Cardiovascular exam: PRESENT: +S1, +S2 GI/Abdominal exam: PRESENT: normal bowel sounds, soft, tenderness - -Mild in the suprapubic area. No masses were felt.. ABSENT: organomegaly Extremities exam: ABSENT: pedal edema Neurological exam: PRESENT: alert, awake, oriented to person, oriented to place Results Laboratory Results: 12/06/18 04:00 12/06/18 04:00 12/05/18 12/06/18 12/06/18 14:45 04:00 04:00 WBC 6.2 RBC 3.38 L Hgb 10.3 L Hct 30.1 L MCV 89 MCH 30.5 MCHC 34.3 RDW 13.4 Plt Count 196 Sodium 135.6 L 135.9 L Potassium 4.5 4.3 Chloride 98 100 Carbon Dioxide 27 22 Anion Gap 11 14 BUN 19 17 Creatinine 2.33 H 2.06 H Est GFR ( Amer) 34 L 39 L Est GFR (Non-Af Amer) 28 L 33 L Glucose 106 99 Calcium 8.7 8.7 Magnesium 1.1 L* 11/24/18 07:34 Troponin I < 0.012 Impressions: Renal Ultrasound 11/24/18 00:00 IMPRESSION: Both kidneys demonstrate increased echogenicity of the renal parenchyma. The possibility of chronic medical renal disease cannot be excluded. Head CT 11/24/18 07:56 IMPRESSION: No acute intracranial hemorrhage or acute territorial infarct. Carotid Doppler Study 11/25/18 00:00 IMPRESSION: Soft plaque at the right carotid bifurcation worrisome for flow significant stenosis right proximal internal carotid artery. However, velocity measurements in the proximal right internal carotid artery suggest against flow significant stenosis. The CT angio of the neck with IV contrast is recommended for further evaluation of the right carotid bifurcation. No flow significant stenosis at the left carotid bifurcation. Antegrade pulsati le vertebral artery flow bilaterally. Chest X-Ray 11/25/18 00:00 IMPRESSION: 1. NO ACUTE RADIOGRAPHIC FINDING IN THE CHEST. Neck MRA 11/26/18 00:00 IMPRESSION: NO SIGNIFICANT STENOSIS. Hand X-Ray 11/29/18 08:00 IMPRESSION: 1. No evidence of acute bony abnormality. 2. Scattered subtle marginal erosions most conspicuous at the 3rd and 4th proximal interphalangeal joints on the left with additional MCP and carpal bone subchondral cystic change. Findings can be seen with rheumatologic abnormality such as rheumatoid arthritis. No evidence of significant ulnar deviation. 3. 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 Abdomen/Pelvis CT 12/03/18 00:00 IMPRESSION: Bladder wall thickening and fat stranding, findings consistent with nonspecific infectious or inflammatory cystitis. Correlate with urinalysis. No evidence of urinary tract calculus or other findings to explain flank pain. Urethrogram 12/05/18 12:48 IMPRESSION: Edema with narrowing of the membranous urethra. No talon urinary extravasation from the urethra or bladder. Assessment & Plan - Diagnosis (1) Acute kidney injury Is this a current diagnosis for this admission?: Yes Plan: Nonoliguric. He is showing mild improvement in his renal numbers. Continue present lines of management. I would also treat his urethritis with short dose of Medrol Dosepak. Discussed with Celena Davis/hospitalist. (2) Hyperkalemia Is this a current diagnosis for this admission?: Yes Plan: Resolved. Monitor (3) Hypotension Is this a current diagnosis for this admission?: Yes Plan: Currently stable. Stay off any antihypertensives especially ODETTE inhibitors that he was on the time of admission. Monitor for couple of weeks post discharge for reinitiation of any antihypertensives. (4) UTI (urinary tract infection) Qualifiers: Urinary tract infection type: acute cystitis Hematuria presence: with hematuria Qualified Code(s): N30.01 - Acute cystitis with hematuria Is this a current diagnosis for this admission?: Yes Plan: I believe he has had some inflammation removed following his traumatic removal of the Bryan catheter. Not entirely convinced if he is growing a full-blown UTI given the low colony count of Klebsiella. However I believe he might have an element of prostatitis as well and I agree with the change of antibiotics to IV levofloxacin. As mentioned earlier he would probably need to have a follow-up visit with an urologist as an outpatient post discharge.His urine microscopy shows a decrease in amount of RBCs. Review of the urethrogram as mentioned earlier. Discussed with hospitalist to start the Medrol dose pack (5) Urethritis, nonspecific Plan: Traumatic. See response to Medrol Dosepak. Later might need to follow with urology.
[2018-12-06 16:48] VITALS: BP 116/66
--- NOTE | 2018-12-11 21:19 | PDOC DISCHARGE SUMMARY ---
General - Admit/Disc Date/PCP Admission Date/Primary Care Provider: 11/24/18 09:11 KAYLA KIRK MD Discharge Date: 12/06/18 - Discharge Diagnosis (1) Acute kidney injury Is this a current diagnosis for this admission?: Yes (2) UTI (urinary tract infection) Is this a current diagnosis for this admission?: Yes (3) Chronic narcotic use Is this a current diagnosis for this admission?: Yes (4) Dysuria Is this a current diagnosis for this admission?: Yes (5) Confusion Is this a current diagnosis for this admission?: Yes (6) Hyperkalemia Is this a current diagnosis for this admission?: Yes (7) Vertigo Is this a current diagnosis for this admission?: Yes - Additional Information Resuscitation Status: Full Code Discharge Diet: As Tolerated Discharge Activity: Activity As Tolerated Prescriptions: Hydrocodone/Acetaminophen [[place] 7.5-325 mg Tablet] 1 tab PO Q4HP PRN 5 Days #20 tablet PRN Reason: Levofloxacin [Levaquin 750 mg Tablet] 750 mg PO DAILY #5 tab Phenazopyridine HCl [Pyridium 100 Mg Tablet] 100 mg PO DAILY #7 tablet Tamsulosin HCl [Flomax 0.4 mg Cap.sr] 0.4 mg PO BID #60 cap.sr.24h Home Medications: Amitriptyline HCl [Elavil 25 mg Tablet] 25 mg PO QHS 11/24/18 Aspirin [Ecotrin 81 mg EC Tablet] 81 mg pe PO DAILY 11/24/18 Atorvastatin Calcium [Lipitor 20 mg Tablet] 20 mg PO DAILY 11/24/18 Gabapentin 800 mg PO TID 11/24/18 Hydrocodone/Acetaminophen [[place] 7.5-325 Tablet] 1 tab PO TIDP PRN 11/24/18 Lisinopril [Prinivil 10 mg Tablet] 10 mg PO DAILY 11/24/18 Tramadol HCl [Ultram] 100 mg PO TIDP PRN 11/24/18 Hydrocodone/Acetaminophen [[place] 7.5-325 mg Tablet] 1 tab PO Q4HP PRN 5 Days #20 tablet 12/06/18 Levofloxacin [Levaquin 750 mg Tablet] 750 mg PO DAILY #5 tab 12/06/18 Phenazopyridine HCl [Pyridium 100 Mg Tablet] 100 mg PO DAILY #7 tablet 12/06/18 Tamsulosin HCl [Flomax 0.4 mg Cap.sr] 0.4 mg PO BID #60 cap.sr.24h 12/06/18 History of Present Illness History of Present Illness: YURI SABILLON is a 63 year old male with a history of HTN, vertigo who presents with one week of worsening lightheadness and dizziness. Patient is accompanied by his very supportive and daughter in ED. Notes that 3-4 months ago was started on Lisinopril 20mg daily for elevated BP. After one month had repeated spells of lightheadness and his PCP decreased dose to 10mg daily in September 2018. Did better with reduced dose however continued to have occasional lightheadness. Over the past week, has become more symptomatic. States that it is worst with positional changes. He also admits to falling once on 11/23 when trying to stand up. Denies hitting head. Pt lives with his daughter who takes BP daily. She notes that it has been in 90-100s systolic lately. Patient has been eating and drink well. No recent illnesses or sick contacts. Denies fevers, chills, CP, SOB, abdominal pain, NV. State that his thinking has become "more clouded" over the last few days. NO history of renal dysfunction in the past. Notes that many years ago was diagnosed with vertigo however current sx are different. ED work up notable for Cr of 5.6, which is elevated compared to last Cr on file (WNL). admitted to hospitalist service for further work up. Hospital Course Hospital Course: YURI SABILLON is a 63 year old male with a history of HTN, vertigo who presented with one week of worsening lightheadness and dizziness admitted for acute kidney failure secondary to ATN (concurrent lisinopril, Lyrica, gabapentin, and NSAID use).The lisinopril, lyrica and gabapentin were all put on hold. Nephrology was consulted. The patient's NGA was believed to be related to hypotension stemming from the lisinopril. He was started on IVF but, unfortunately, his Creatinine (7.5) and Potassium (5.9) continued to get worse. Veltassa was started for hyperkalemia, but had little effect on the patient's potassium levels. A trialysis catheter was placed and the patient received hemodialysis on 11/27/2018 and 11/29/2018. The patient's creatinine improved, and dropped <3.0. The patient stated he felt much better following his dialysis sessions. During the patient's hospitalization, around 11/27/2018 the patient attempted to ambulate in his room. Unfortunately, he stepped on his Bryan catheter tubing and suffered a traumatic removal of his catheter with the balloon still inflated. In the days following, the patient complained of persistent suprapubic pain and mild abdominal distention. A CT of the abdomen and pelvis was done, revealed bladder wall thickening and stranding, consistent with cystitis. The patient was placed on levaquin for empiric coverage of a complicated UTI. Low dose pyridium was offered, but the patient stated it did not offer much relief. After 48 hrs of antibiotics, the patient was still complaining of considerable pain. A retrograde urethrogram was preformed, and it showed edema with narrowing of the urethra, no urinary extravasation. Discussed patient's case with [facility], they did not recommend any further testing or treatment, only hydration and allowing time to heal the injured tissue. The patient was discharged with instructions to follow up closely with a geosciences associate professor. He was instructed to hold off on taking any ODETTE-I or NSAIDS until that time. For any firther information regarding this patient's hospitalization, please refer to the EMR. Physical Exam Vital Signs: Temp Pulse Resp BP Pulse Ox 98.4 F 102 H 16 116/66 98 12/06/18 16:43 12/06/18 16:43 12/06/18 16:43 12/06/18 16:43 12/06/18 16:43 Results Laboratory Results: 12/06/18 04:00 12/06/18 04:00 11/24/18 07:34 Troponin I < 0.012 Impressions: Renal Ultrasound 11/24/18 00:00 IMPRESSION: Both kidneys demonstrate increased echogenicity of the renal parenchyma. The possibility of chronic medical renal disease cannot be excluded. Head CT 11/24/18 07:56 IMPRESSION: No acute intracranial hemorrhage or acute territorial infarct. Carotid Doppler Study 11/25/18 00:00 IMPRESSION: Soft plaque at the right carotid bifurcation worrisome for flow significant stenosis right proximal internal carotid artery. However, velocity measurements in the proximal right internal carotid artery suggest against flow significant stenosis. The CT angio of the neck with IV contrast is recommended for further evaluation of the right carotid bifurcation. No flow significant stenosis at the left carotid bifurcation. Antegrade pulsatile vertebral artery flow bilaterally. Chest X-Ray 11/25/18 00:00 IMPRESSION: 1. NO ACUTE RADIOGRAPHIC FINDING IN THE CHEST. Neck MRA 11/26/18 00:00 IMPRESSION: NO SIGNIFICANT STENOSIS. Hand X-Ray 11/29/18 08:00 IMPRESSION: 1. No evidence of acute bony abnormality. 2. Scattered subtle marginal erosions most conspicuous at the 3rd and 4th proximal interphalangeal joints on the left with additional MCP and carpal bone subchondral cystic change. Findings can be seen with rheumatologic abnormality such as rheumatoid arthritis. No evidence of significant ulnar deviation. 3. 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 Abdomen/Pelvis CT 12/03/18 00:00 IMPRESSION: Bladder wall thickening and fat stranding, findings consistent with nonspecific infectious or inflammatory cystitis. Correlate with urinalysis. No evidence of urinary tract calculus or other findings to explain flank pain. Urethrogram 12/05/18 12:48 IMPRESSION: Edema with narrowing of the membranous urethra. No talon urinary extravasation from the urethra or bladder. Qualifiers - * PATIENT BEING DISCHARGED WITH ANY OF THE FOLLOWING DIAGNOSIS: No
== END 2018-12-06 19:14 | disposition home health service (06) | DRG 683 ==
LOC: ER 06:50 → EH 09:11 → OBSVTOIN 09:11 → 4N 18:42
PROVIDERS: ADMIT Student in an Organized Health Care Education/Training Program; ATTEND Student in an Organized Health Care Education/Training Program
PROC: 05HM33Z Insertion of Infusion Device into Right Internal Jugular Vein, Percutaneous Approach (ICD-10-PCS; principal; 2018-11-26)
PROC: B543ZZA Ultrasonography of Right Jugular Veins, Guidance (ICD-10-PCS; 2018-11-26)
PROC: 5A1D70Z Performance of Urinary Filtration, Intermittent, Less than 6 Hours Per Day (ICD-10-PCS; 2018-11-27)
PROC: 5A1D70Z Performance of Urinary Filtration, Intermittent, Less than 6 Hours Per Day (ICD-10-PCS; 2018-11-29)
PROC: BT1B1ZZ Fluoroscopy of Bladder and Urethra using Low Osmolar Contrast (ICD-10-PCS; 2018-12-05)
DX: N17.0 Acute kidney failure with tubular necrosis (principal); N30.01 Acute cystitis with hematuria; S37.39XA Other injury of urethra, initial encounter; T46.4X5A Adverse effect of angiotensin-converting-enzyme inhibitors, initial encounter; B96.1 Klebsiella pneumoniae [K. pneumoniae] as the cause of diseases classified elsewhere; I10 Essential (primary) hypertension; R42 Dizziness and giddiness; M54.9 Dorsalgia, unspecified; R41.82 Altered mental status, unspecified; E83.42 Hypomagnesemia; G89.29 Other chronic pain; X58.XXXA Exposure to other specified factors, initial encounter; Z79.899 Other long term (current) drug therapy; E87.5 Hyperkalemia; I95.9 Hypotension, unspecified; Z82.61 Family history of arthritis; Z79.891 Long term (current) use of opiate analgesic
CPT/HCPCS: 36415; 70450; 70547; 71045; 74176; 74450; 76770; 80048; 80053; 81001; 82962; 83605; 83735; 84100; 84132; 84153; 84484; 85025; 85027; 85652; 86140; 86317; 86430; 86704; 87040; 87086; 87088; 87186; 87340; 87522; 87804; 93005; 93010; 93880; 94640; 96360; 96361; 99285; C1752; J1644; J1815; J1940; J1956; J2270; J2550; J2930; J3475; J3490; J7030; S0119

== ENCOUNTER 2018-12-11 23:03 | Emergency (ER) | payer MEDICARE ==
[2018-12-11] MEDS ORDERED: NORMAL SALINE 1000 ML 1,000 ML IV ONE (23:58)
[2018-12-12] MEDS ORDERED: ACETAMINOPHEN 325 MG TABLET PO ONE (00:11)
[2018-12-12 00:20] LABS: ABSOLUTE LYMPHOCYTES (AUTO) 1.4 10^3/uL (0.5-4.7); ABSOLUTE MONOCYTES (AUTO) 1.2 10^3/uL (0.1-1.4); ABSOLUTE NEUT (AUTO) 11.3 10^3/uL (1.7-8.2); BASOPHILS % (AUTO) 0.1 % (0-2); HEMATOCRIT 29.3 % (37.9-51.0); LYMPHOCYTES % (AUTO) 10.3 % (13-45); MEAN CORPUSCULAR HEMOGLOBIN 30.5 pg (27.0-33.4); MEAN CORPUSCULAR HGB CONC 34.2 g/dL (32.0-36.0); MEAN CORPUSCULAR VOLUME 89 fl (80-97); MONOCYTES % (AUTO) 8.7 % (3-13); PLATELET COUNT 223 10^3/uL (150-450); RED BLOOD COUNT 3.28 10^6/uL (4.35-5.55); RED CELL DISTRIBUTION WIDTH 13.7 % (11.5-14.0); SEGMENTED NEUTROPHILS % (AUTO) 80.9 % (42-78); TOTAL CELLS COUNTED % (AUTO) 100 %; WHITE BLOOD COUNT 13.9 10^3/uL (4.0-10.5)
[2018-12-12 00:33] LABS: INTERNATIONAL RATION (INR) 1.17; PROTHROMBIN TIME 15.5 SEC (11.4-15.4)
[2018-12-12 00:40] LABS: ALANINE AMINOTRANSFERASE 135 U/L (21-72); ALBUMIN 3.5 g/dL (3.5-5.0); ALKALINE PHOSPHATASE 64 U/L (38-126); ANION GAP 13 (5-19); ASPARTATE AMINO TRANSFERASE 63 U/L (17-59); BILIRUBIN,DIRECT 0.1 mg/dL (0.0-0.4); BILIRUBIN,TOTAL 0.5 mg/dL (0.2-1.3); BLOOD UREA NITROGEN 22 mg/dL (7-20); CALCIUM 8.4 mg/dL (8.4-10.2); CARBON DIOXIDE 23 mmol/L (22-30); CHLORIDE 96 mmol/L (98-107); GLUCOSE 134 mg/dL (75-110); POTASSIUM 4.4 mmol/L (3.6-5.0); SODIUM 131.6 mmol/L (137-145); TOTAL PROTEIN 6.1 g/dL (6.3-8.2)
[2018-12-12 00:41] LABS: VENOUS BLOOD BASE EXCESS -0.6 mmol/L; VENOUS BLOOD HCO3 22.1 mmol/L (20-32); VENOUS BLOOD PCO2 30.8 mmHg (35-63); VENOUS BLOOD PH 7.47 (7.30-7.42)
[2018-12-12 01:22] LABS: APPEARANCE,URINE CLEAR; BILIRUBIN,URINE NEGATIVE (NEGATIVE); COLOR,URINE AMBER; GLUCOSE, URINE NEGATIVE (NEGATIVE); KETONES,URINE NEGATIVE (NEGATIVE); LEUKOCYTE ESTERASE,URINE NEGATIVE (NEGATIVE); NITRITE,URINE POSITIVE (NEGATIVE); PROTEIN,URINE NEGATIVE (NEGATIVE); URINE SPECIFIC GRAVITY 1.016
--- NOTE | 2018-12-12 01:52 | RADIOLOGY REPORT (SQ) ---
EXAM DESCRIPTION: XR CHEST 2 VIEWS COMPLETED DATE/TME: 12/12/2018 00:11 CLINICAL HISTORY: 63 years, Male, fever Comparison: None FINDINGS: No focal lung consolidation. No pleural effusion. No pneumothorax. Cardiac and mediastinal silhouette is unremarkable. No acute osseous abnormality. Soft tissues are unremarkable. IMPRESSION: No acute findings. No focal lung consolidation.
[2018-12-12 03:13] VITALS: BP 118/77
[2018-12-12] MEDS ORDERED: LEVOFLOXACIN 750 MG TABLET PO ONE (03:21)
--- NOTE | 2018-12-12 03:32 | ER Document Report ---
ED General - General Chief Complaint: Urinary Problem Stated Complaint: FEVER Time Seen by Provider: 12/11/18 23:49 Primary Care Provider: KEVIN SCHAEFFER MD [Primary Care Provider] - Follow up in 3-5 days TRAVEL OUTSIDE OF THE [place] IN LAST 30 DAYS: No - HPI Patient complains to provider of: Fever Notes: Patient coming in for evaluation of fever. Patient states was recently seen by his doctor today after recently being discharged from the hospital underlying acute renal failure with urinary tract infection. Patient during his stay had required dialysis patient was discharged home on Levaquin states he took his last Levaquin earlier this morning. Patient did arrive with a fever and slight tachycardia. Patient denies any nausea vomiting diarrhea. Patient states he was experiencing chills and Reiger's has not taken any Tylenol or Motrin today. Patient upon my evaluation has received Tylenol states he is feeling much better is currently getting IV fluids infused. Patient denies any cough denies any dysuria resting comfortably upon my evaluation. A brief review of the patient's past medical records available in [facility] was performed - Related Data Allergies/Adverse Reactions: aspirin Adverse Reaction (Verified 11/24/18 11:11) Past Medical History - Social History Smoking Status: Former Smoker Family History: Reviewed & Not Pertinent Patient has suicidal ideation: No Patient has homicidal ideation: No - Past Medical History Cardiac Medical History: Reports: Hx Hypertension Endocrine Medical History: Denies: Hx Diabetes Mellitus Type 1, Hx Diabetes Mellitus Type 2 Renal/ Medical History: Denies: Hx Peritoneal Dialysis Past Surgical History: Reports: Hx Abdominal Surgery - hernia, Hx Herniorrhaphy Review of Systems - Review of Systems Constitutional: Fever EENT: No symptoms reported Cardiovascular: No symptoms reported Respiratory: No symptoms reported Gastrointestinal: No symptoms reported Genitourinary: No symptoms reported Male Genitourinary: No symptoms reported Musculoskeletal: No symptoms reported Skin: No symptoms reported Hematologic/Lymphatic: No symptoms reported Neurological/Psychological: No symptoms reported Physical Exam - Vital signs Vitals: Temp Pulse Resp BP Pulse Ox 102.6 F H 136 H 23 H 111/73 95 12/11/18 23:13 12/11/18 23:13 12/11/18 23:13 12/11/18 23:13 12/11/18 23:13 Interpretation: Febrile - General General appearance: Appears well, Alert - HEENT Head: Normocephalic, Atraumatic Eyes: Normal Pupils: PERRL Neck: Normal Notes: Bandage to the right side of the neck from dialysis catheter placement well- healed no signs of infection - Respiratory Respiratory status: No respiratory distress Chest status: Nontender Breath sounds: Normal Chest palpation: Normal - Cardiovascular Rhythm: Regular Heart sounds: Normal auscultation Murmur: No - Abdominal Inspection: Normal Distension: No distension Bowel sounds: Normal Tenderness: Nontender Organomegaly: No organomegaly - Back Back: Normal, Nontender - Extremities General upper extremity: Normal inspection, Nontender, Normal color, Normal ROM, Normal temperature General lower extremity: Normal inspection, Nontender, Normal color, Normal ROM, Normal temperature, Normal weight bearing. No: Ruma's sign - Neurological Neuro grossly intact: Yes Cognition: Normal Orientation: AAOx4 [place] Coma Scale Eye Opening: Spontaneous [place] Coma Scale Verbal: Oriented [place] Coma Scale Motor: Obeys Commands [place] Coma Scale Total: 15 Speech: Normal Motor strength normal: LUE, RUE, LLE, RLE Sensory: Normal - Psychological Associated symptoms: Normal affect, Normal mood - Skin Skin Temperature: Warm Skin Moisture: Dry Skin Color: Normal Course - Re-evaluation Re-evalutation: 12/12/18 04:24 Laboratory studies showed improvement patient's BUN/creatinine slight increase in the patient's white cell count leukocytosis of 13. Lactic acid is negative. Urinalysis does show positive nitrates however decrease in the WBC count. A review of the patient's cultures was performed patient otherwise upon reevaluation after receiving fluids states he feels much better was ambulated around the ER states that he felt okay option of admission to the hospital with the following of the cultures versus discharging the patient home with extension of his Levaquin for the next 5 days was discussed with the patient. Patient has opted to be discharged home and will follow up with his primary care physician we will follow-up with blood cultures. If the blood culture did return positive more likely patient will need to be brought back to the hospital for IV antibiotics and further monitoring. - Vital Signs Vital signs: Temp Pulse Resp BP Pulse Ox 98.4 F 136 H 14 118/77 94 12/12/18 03:41 12/11/18 23:13 12/12/18 03:00 12/12/18 02:01 12/12/18 03:00 - Laboratory Result Diagrams: 12/11/18 23:54 12/11/18 23:54 Laboratory results interpreted by me: 12/11/18 12/11/18 12/11/18 23:54 23:54 23:54 WBC 13.9 H RBC 3.28 L Hgb 10.0 L Hct 29.3 L Seg Neutrophils % 80.9 H Lymphocytes % 10.3 L Absolute Neutrophils 11.3 H PT 15.5 H VBG pH VBG pCO2 Sodium 131.6 L Chloride 96 L BUN 22 H Creatinine 1.69 H Est GFR ( Amer) 50 L Est GFR (Non-Af Amer) 41 L Glucose 134 H AST 63 H ALT 135 H Total Protein 6.1 L Urine Nitrite Urine Urobilinogen 12/12/18 12/12/18 00:22 00:22 WBC RBC Hgb Hct Seg Neutrophils % Lymphocytes % Absolute Neutrophils PT VBG pH 7.47 H VBG pCO2 30.8 L Sodium Chloride BUN Creatinine Est GFR ( Amer) Est GFR (Non-Af Amer) Glucose AST ALT Total Protein Urine Nitrite POSITIVE H Urine Urobilinogen 4.0 H Discharge - Discharge Clinical Impression: Dehydration, UTI under current treatment Fever Qualifiers: Fever type: unspecified Qualified Code(s): R50.9 - Fever, unspecified Condition: Good Disposition: HOME, SELF-CARE Instructions: Fever ([facility]) Additional Instructions: Laboratory results denied chest x-ray did not show any signs of a new infection. I would recommend we extend your antibiotic course out please make sure drinking plenty fluids at home to stay well-hydrated. Please continue all other medications at home as previously prescribed. We will follow with your urine culture tonight and your blood cultures tonight if there is any concerns from these cultures we will give you a phone call he may have to return to the hospital for IV antibiotics I would highly recommend he follow-up with your primary care physician on Sunday or Sunday Please take Tylenol for your fever Prescriptions: Levofloxacin [Levaquin 750 mg Tablet] 750 mg PO DAILY #5 tablet Referrals: KEVIN SCHAEFFER MD [Primary Care Provider] - Follow up in 3-5 days
--- NOTE | 2018-12-12 22:17 | EKG REPORT ---
SEVERITY:- BORDERLINE ECG - SINUS TACHYCARDIA ATRIAL PREMATURE COMPLEX BORDERLINE T WAVE ABNORMALITIES : Confirmed by: Lam Eaton 12-Dec-2018 22:16:16
== END 2018-12-12 03:47 | disposition home or self-care (01) ==
LOC: ER 23:03
DX: N39.0 Urinary tract infection, site not specified (principal); R50.9 Fever, unspecified; E86.0 Dehydration; I10 Essential (primary) hypertension; Z87.891 Personal history of nicotine dependence
CPT/HCPCS: 93005; 99284; 96360; 36415; 87040; 87086; 85025; 85610; 80053; 81001; 82803; 83605; 71046; 93010; A9270 ×2; J7030

== ENCOUNTER → 2019-03-04 | Outpatient (CLI) | payer MEDICARE ==
[2019-03-04 10:26] LABS: ABSOLUTE LYMPHOCYTES (AUTO) 2.6 10^3/uL (0.5-4.7); ABSOLUTE MONOCYTES (AUTO) 0.4 10^3/uL (0.1-1.4); ABSOLUTE NEUT (AUTO) 2.4 10^3/uL (1.7-8.2); BASOPHILS % (AUTO) 0.4 % (0-2); EOSINOPHILS % (AUTO) 0.3 % (0-6); HEMATOCRIT 42.5 % (37.9-51.0); HEMOGLOBIN 14.2 g/dL (13.5-17.0); LYMPHOCYTES % (AUTO) 47.5 % (13-45); MEAN CORPUSCULAR HEMOGLOBIN 30.1 pg (27.0-33.4); MEAN CORPUSCULAR HGB CONC 33.3 g/dL (32.0-36.0); MEAN CORPUSCULAR VOLUME 90 fl (80-97); MONOCYTES % (AUTO) 7.1 % (3-13); PLATELET COUNT 142 10^3/uL (150-450); RED CELL DISTRIBUTION WIDTH 13.3 % (11.5-14.0); SEGMENTED NEUTROPHILS % (AUTO) 44.7 % (42-78); TOTAL CELLS COUNTED % (AUTO) 100 %; WHITE BLOOD COUNT 5.4 10^3/uL (4.0-10.5)
[2019-03-04 10:56] LABS: ALANINE AMINOTRANSFERASE 26 U/L (21-72); ALBUMIN 4.4 g/dL (3.5-5.0); ALKALINE PHOSPHATASE 71 U/L (38-126); ANION GAP 9 (5-19); ASPARTATE AMINO TRANSFERASE 18 U/L (17-59); BILIRUBIN,DIRECT 0.2 mg/dL (0.0-0.4); BILIRUBIN,TOTAL 0.4 mg/dL (0.2-1.3); BLOOD UREA NITROGEN 8 mg/dL (7-20); CALCIUM 9.8 mg/dL (8.4-10.2); CARBON DIOXIDE 28 mmol/L (22-30); CHLORIDE 104 mmol/L (98-107); CHOLESTEROL 229.93 mg/dL (0-200); GLUCOSE 121 mg/dL (75-110); POTASSIUM 4.2 mmol/L (3.6-5.0); TOTAL PROTEIN 7.5 g/dL (6.3-8.2); TRIGLYCERIDES 104 mg/dL (<150)
[2019-03-04 11:10] LABS: DIRECT LDL 119 mg/dL (<100)
== END ==
LOC: LAB 09:37
PROVIDERS: ATTEND Family Medicine Geriatric Medicine
DX: I10 Essential (primary) hypertension (principal); E78.5 Hyperlipidemia, unspecified; E83.42 Hypomagnesemia; Z79.899 Other long term (current) drug therapy; N40.1 Benign prostatic hyperplasia with lower urinary tract symptoms
CPT/HCPCS: 36415; 80053; 80061; 83735; 84153; 84443; 85025